=== PATIENT | female | born 1970 | race Caucasian/White ===

== ENCOUNTER 2016-07-07 17:32 | Emergency (ER) | payer OTHER ==
[2016-07-07 19:06] VITALS: BP 113/55
--- NOTE | 2016-07-07 19:27 | UC ---
Throat Pain/Nasal Bryson HPI - HPI Summary HPI Summary: 46 yo female with sore throat /headache and myalgias x 1-2 days no runny nose or cough no CP/sob states that she can take cephalexin - History of Current Complaint Chief Complaint: UCGeneralIllness Stated Complaint: SORE THROAT/HEADACHE Time Seen by Provider: 07/07/16 19:07 Hx Obtained From: Patient Hx Last Menstrual Period: hysterectomy Onset/Duration: Gradual Onset, Lasting Days Severity: Moderate Pain Intensity: 4 Pain Scale Used: 0-10 Numeric - Allergies/Home Medications Allergies/Adverse Reactions: Allergies Allergy/AdvReac Type Severity Reaction Status Date / Time Sorbitan [From Stelara] Allergy Severe Anaphylatic Verified 07/07/16 19:06 Shock Ustekinumab [From Stelara] Allergy Severe Anaphylatic Verified 07/07/16 19:06 Shock Benzyl Alcohol [From Enbrel] Allergy Mild See Comment Verified 07/07/16 19:06 Etanercept [From Enbrel] Allergy Mild See Comment Verified 07/07/16 19:06 Iohexol [From Omnipaque] Allergy Mild Eyes Verified 07/07/16 19:06 Itchy/Swollen/Red/Watery Penicillins [PCN] Allergy Mild Rash Verified 07/07/16 19:06 Tromethamine [From Enbrel] Allergy Mild See Comment Verified 07/07/16 19:06 Amoxicillin Allergy Rash Verified 07/07/16 19:06 Solifenacin [From Vesicare] Allergy Swelling Verified 07/07/16 19:06 Of Face,Lips,& Throat Venlafaxine [From Effexor] AdvReac Mild See Comment Verified 07/07/16 19:06 PMH/Surg Hx/FS Hx/Imm Hx Previously Healthy: Yes Endocrine History Of: Denies: Diabetes, Thyroid Disease Cardiovascular History Of: Denies: Cardiac Disorders, Hypertension, Pacemaker/ICD Respiratory History Of: Reports: Bronchitis Denies: COPD, Asthma GI/ History Of: Denies: Gastroesophageal Reflux, Ulcer, Gastrointestinal Bleed, Gall Bladder Disease, Renal Disease Neurological History Of: Reports: Migraine Denies: CVA, Dementia, Seizures Cancer History Of: Denies: Breast Cancer Other History Of: Negative For: Anticoagulant Therapy - Surgical History Surgical History: Yes Surgery Procedure, Year, and Place: HYSTERECTOMY, appendectomy, bladder repair, thyriod - Family History Known Family History: Positive: Diabetes, Other - Aneurysm - Social History Alcohol Use: Rare Substance Use Type: None Smoking Status (MU): Former Smoker Type: Cigarettes Length of Time of Smoking/Using Tobacco: 20 years Have You Smoked in the Last Year: Yes When Did the Patient Quit Smoking/Using Tobacco: 3 months - Immunization History Most Recent Tetanus Shot: unknown Review of Systems Constitutional: Negative Skin: Negative Eyes: Negative ENT: Sore Throat Respiratory: Negative Cardiovascular: Negative Gastrointestinal: Negative Genitourinary: Negative Motor: Negative Neurovascular: Negative Musculoskeletal: Myalgia Neurological: Negative Psychological: Negative All Other Systems Reviewed And Are Negative: Yes Physical Exam Triage Information Reviewed: Yes Appearance: Well-Appearing, No Pain Distress, Well-Nourished Vital Signs: Initial Vital Signs Temp 98.5 F 07/07/16 19:00 Pulse 67 07/07/16 19:00 Resp 16 07/07/16 19:00 BP 113/55 07/07/16 19:00 Pulse Ox 98 07/07/16 19:00 Vital Signs Reviewed: Yes Eyes: Positive: Conjunctiva Clear ENT: Positive: Hearing grossly normal, Pharyngeal erythema, Tonsillar swelling, Other: - a few soft palate petechiae Neck exam: Normal Neck: Positive: Supple, Nontender, Enlarged Nodes @ - ant cervical Respiratory: Positive: Lungs clear, Normal breath sounds, No respiratory distress Cardiovascular: Positive: RRR, No Murmur, Pulses Normal Musculoskeletal: Positive: ROM Intact, No Edema Neurological: Positive: Alert Psychological Exam: Normal Skin Exam: Normal Throat Pain/Nasal Course/Dx - Course Course Of Treatment: RS (-) - Differential Dx/Diagnosis Provider Diagnoses: acute pharyngitis Discharge - Discharge Plan Condition: Stable Disposition: HOME Prescriptions: Cephalexin CAP* [Keflex CAP*] 500 mg PO BID #20 cap Patient Education Materials: Pharyngitis (ED) Referrals: Raul Molina MD [Primary Care Provider] - 4 Days (if not better) Additional Instructions: rest fluids tylenol recheck for new or worsening symptoms
[2016-07-07] MEDS ORDERED: Ketorolac INJ* 30 MG/ML 1 ML VIAL IV ONE (19:36)
== END 2016-07-07 19:54 | disposition home or self-care (01) ==
LOC: UCEAST 17:32
DX: J02.9 Acute pharyngitis, unspecified (principal); R51 Headache; M79.1 Myalgia; Z88.0 Allergy status to penicillin; Z88.8 Allergy status to other drugs, medicaments and biological substances; Z87.891 Personal history of nicotine dependence
CPT/HCPCS: 87651; 99212; G0463

== ENCOUNTER 2016-12-29 11:07 | Emergency (ER) | payer OTHER ==
[2016-12-29] MEDS ORDERED: NS 0.9% 1000 ML* 1,000 ML IV ONE (11:42)
[2016-12-29] MEDS ORDERED: diPHENhydraMINE IV* 50 MG in NS 0.9% 50 ML* 50 ML IVPB ONE (11:42)
[2016-12-29] MEDS ORDERED: Ketorolac INJ* 30 MG/ML 1 ML VIAL IV PUSH ONE (11:42)
[2016-12-29] MEDS ORDERED: methylPREDNISolone 125 MG* 2 ML VIAL IV ONE (11:42)
[2016-12-29] MEDS ORDERED: Metoclopramide IV* 5 MG/ML 2 ML VIAL IV SLOW PU ONE (12:40)
[2016-12-29] MEDS ORDERED: Metoclopramide IV* 5 MG/ML 2 ML VIAL ONE (12:41)
[2016-12-29 14:23] VITALS: BP 119/68
--- NOTE | 2016-12-30 10:06 | ED ---
Mercedes Mao Auryana, scribed for Vahe Spicer MD on 12/29/16 at 1139 . Allergic Reaction/Systemic - HPI Summary HPI Summary: 46 year old female BIBA with an allergic reaction. She reports that she has a pruritic rash on the chest, throat tightening, and a GOSS. Patient reports that she was lying in bed when the reaction occurred - denies any insect bites. She reports that she just started Chantix and recently changed her GERD medication. Improved with EPI pen given by EMS. Patient reports that she does have an epi pen at home but states that she gave it to her to put in a safe place. PMHx is significant for GERD and complex migraines. - History of Current Complaint Chief Complaint: EDAllergicReaction Time Seen by Provider: 12/29/16 11:32 Hx Obtained From: Patient Hx Last Menstrual Period: hysterectomy Onset/Duration: Sudden Onset, Started hours ago, Still Present, Resolved - but improved Timing: Constant Severity Initially: Mild Severity Currently: Mild Location: Diffuse Character: Pruritus - rash on chest Alleviating Factor(s): Epinephrine Associated Signs And Symptoms: Positive: Throat Tightening, Other: - migraine - Allergies/Home Medications Allergies/Adverse Reactions: Allergies Allergy/AdvReac Type Severity Reaction Status Date / Time Sorbitan [From Stelara] Allergy Severe Anaphylatic Verified 07/07/16 19:06 Shock Ustekinumab [From Stelara] Allergy Severe Anaphylatic Verified 07/07/16 19:06 Shock Benzyl Alcohol [From Enbrel] Allergy Mild See Comment Verified 07/07/16 19:06 Etanercept [From Enbrel] Allergy Mild See Comment Verified 07/07/16 19:06 Iohexol [From Omnipaque] Allergy Mild Eyes Verified 07/07/16 19:06 Itchy/Swollen/Red/Watery Penicillins [PCN] Allergy Mild Rash Verified 07/07/16 19:06 Tromethamine [From Enbrel] Allergy Mild See Comment Verified 07/07/16 19:06 Amoxicillin Allergy Rash Verified 07/07/16 19:06 Solifenacin [From Vesicare] Allergy Swelling Verified 07/07/16 19:06 Of Face,Lips,& Throat Venlafaxine [From Effexor] AdvReac Mild See Comment Verified 07/07/16 19:06 PMH/Surg Hx/FS Hx/Imm Hx Endocrine/Hematology History: Denies: Hx Anticoagulant Therapy, Hx Diabetes, Hx Thyroid Disease Cardiovascular History: Denies: Hx Hypertension, Hx Pacemaker/ICD Respiratory History: Denies: Hx Asthma, Hx Chronic Obstructive Pulmonary Disease (COPD) GI History: Reports: Other GI Disorders - Hx GERD Denies: Hx Cirrhosis, Hx Crohn's Disease, Hx Diverticulosis, Hx Gall Bladder Disease, Hx Gastroesophageal Reflux Disease, Hx Gastrointestinal Bleed, Hx Hiatal Hernia, Hx Irritable Bowel, Hx Jaundice, Hx Obstructive Bowel, Hx Ileostomy, Hx Pyloric Stenosis, Hx Ulcer History: Denies: Hx Renal Disease Musculoskeletal History: Reports: Other Musculoskeletal History - R knee ACL reconstruction Denies: Hx Rheumatoid Arthritis, Hx Osteoporosis Sensory History: Reports: Hx Contacts or Glasses Denies: Hx Cataracts, Hx Eye Injury, Hx Eye Prosthesis, Hx Glaucoma, Hx Macular Degeneration, Hx Vision Problem, Hx Deafness, Hx Hearing Aid, Hx Hearing Problem, Other Sensory Impairments Opthamlomology History: Reports: Hx Contacts or Glasses Denies: Hx Cataracts, Hx Eye Injury, Hx Eye Prosthesis, Hx Glaucoma, Hx Macular Degeneration, Hx Vision Problem, Other Sensory Impairments Neurological History: Reports: Hx Headaches, Hx Migraine Denies: Hx Dementia, Hx Seizures, Hx Spinal Cord Injury, Other Neuro Impairments/Disorders Psychiatric History: Denies: Hx Panic Disorder, Hx Substance Abuse - Cancer History Hx Chemotherapy: No Hx Radiation Therapy: No - Surgical History Surgery Procedure, Year, and Place: HYSTERECTOMY, appendectomy, bladder repair, thyriod - Immunization History Date of Tetanus Vaccine: 2014 Date of Influenza Vaccine: 03/08/16 Infectious Disease History: No Infectious Disease History: Denies: Hx Hepatitis, Hx Human Immunodeficiency Virus (HIV), History Other Infectious Disease, Traveled Outside the [place] in Last 30 Days - Family History Known Family History: Positive: Diabetes, Other - Aneurysm - Social History Alcohol Use: None Hx Substance Use: No Substance Use Type: Reports: None Hx Tobacco Use: Yes Smoking Status (MU): Former Smoker Type: Cigarettes Length of Time of Smoking/Using Tobacco: 20 years Have You Smoked in the Last Year: Yes Review of Systems Constitutional: Negative Negative: Fever, Chills Eyes: Negative Negative: Erythema Positive: Other - throat tightening . Negative: Sore Throat Cardiovascular: Negative Negative: Chest Pain Respiratory: Negative Negative: Shortness Of Breath, Cough Gastrointestinal: Negative Negative: Abdominal Pain, Vomiting, Nausea Genitourinary: Negative Negative: dysuria, hematuria Musculoskeletal: Negative Negative: Myalgia, Edema Positive: Rash - on chest - pruritic Neurological: Other - NO DIZZINESS Positive: Headache Psychological: Normal All Other Systems Reviewed And Are Negative: Yes Physical Exam - Summary Physical Exam Summary: Constitutional: Well-developed, Well-nourished, Alert. (-) Distressed Skin: Warm, Dry. Splotchy red rash on the chest. HENT: Normocephalic; Atraumatic Eyes: Conjunctiva normal. Photophobic. Neck: Musculoskeletal ROM normal neck. (-) JVD, (-) Stridor, (-) Tracheal deviation Cardio: Rhythm regular, rate normal, Heart sounds normal; Intact distal pulses; The pedal pulses are 2+ and symmetric. Radial pulses are 2+ and symmetric. (-) Murmur Pulmonary/Chest wall: Effort normal. (-) Respiratory distress, (-) Wheezes, (-) Rales. No stridor. Abd: Soft, (-) Tenderness, (-) Distension, (-) Guarding, (-) Rebound Musculoskeletal: (-) Edema. No angioedema. Lymph: (-) Cervical adenopathy Neuro: Alert, Oriented x3 Psych: Mood and affect Normal Triage Information Reviewed: Yes Vital Signs On Initial Exam: Initial Vitals Temp Pulse Resp BP Pulse Ox 97.9 F 72 16 125/62 95 12/29/16 11:10 12/29/16 11:10 12/29/16 11:10 12/29/16 11:10 12/29/16 11:10 Vital Signs Reviewed: Yes - Enrico Coma Scale Coma Scale Total: 15 Diagnostics - Vital Signs Vital Signs Temp Pulse Resp BP Pulse Ox 12/29/16 11:10 97.9 F 72 16 125/62 95 - Laboratory Lab Statement: Any lab studies that have been ordered have been reviewed, and results considered in the medical decision making process. Re-Evaluation - Re-Evaluation First Eval Re-Evaluation Time: 14:12 - GOSS is resolved, lungs clear, itchiness resolved Change: Improved Allergic Reaction Course/Dx - Course Assessment/Plan: 46 year old female BIBA with an allergic reaction. She reports that she has a pruritic rash on the chest, throat tightening, and a GOSS. Patient reports that she was lying in bed when the reaction occurred - denies any insect bites. She reports that she just started Chantix and recently changed her GERD medication. Improved with EPI pen given by EMS. Patient reports that she does have an epi pen at home but states that she gave it to her to put in a safe place. PMHx is significant for GERD and complex migraines. Patient was given IV fluids, Benadryl, Reglan, Toradol, and Prednisone. On re- evaluation, patient is much improved lungs clear, GOSS resolved, and no more itchiness. Patient will be discharged home with recommendation to discontinue Chantix and follow up with PCP. Patient is agreeable to plan. DDx: contact dermatitis, medication allergy, food allergy, anaphylaxis. Dx: allergic reaction. - Diagnoses Differential Diagnosis/HQI/PQRI: Positive: Anaphylaxis, Local Allergic Reaction , Other - medication allergy, contact dermatitis, food allergy Provider Diagnoses: Allergic reaction Discharge - Discharge Plan Condition: Stable Disposition: HOME Patient Education Materials: General Allergic Reaction (ED) Referrals: Raul Molina MD [Primary Care Provider] - 2 Days Additional Instructions: PLEASE DISCONTINUE CHANTIX. RETURN TO THE EMERGENCY DEPARTMENT FOR CHANGING OR WORSENING SYMPTOMS. The documentation as recorded by the Mercedes collins Auryana accurately reflects the service I personally performed and the decisions made by me, Vahe Spicer MD.
== END 2016-12-29 14:23 | disposition home or self-care (01) ==
LOC: ED 11:07
DX: T78.40XA Allergy, unspecified, initial encounter (principal); R21 Rash and other nonspecific skin eruption; R51 Headache; R09.89 Other specified symptoms and signs involving the circulatory and respiratory systems; X58.XXXA Exposure to other specified factors, initial encounter; Z88.1 Allergy status to other antibiotic agents; Z88.8 Allergy status to other drugs, medicaments and biological substances; Z91.041 Radiographic dye allergy status; Z90.710 Acquired absence of both cervix and uterus; Z87.891 Personal history of nicotine dependence
CPT/HCPCS: 96361; 96365; 96375; 99282; J1200; J1885; J2930

== ENCOUNTER 2017-06-04 06:41 | Day surgery (SDC) | payer OTHER ==
[~2017-06-04 06:41] MED LIST: Buffered Lidocaine 0.9% SYRIN* 5 ML/SYR SYRINGE INTRADERM ONE; DiMENhydriNATE IV* 50 MG/ML VIAL IV PUSH PRN; Famotidine IV* 10 MG/ML 2 ML (20 mg) IV ONE; Morphine INJ* 2 MG/ML 1 ML CARPUJECT IV PRN; PROCHLORPERAZINE INJ 5 MG/ML 2 ML VIAL IV PRN; Scopolamine 1.5 mg* PATCH TRANSDERM PRN; fentaNYL* 50 MCG/ML 2 ML VIAL (100 MCG VIAL) IV PRN; oxyCODONE/Acetamin 5/325 MG* TAB PO PRN
[2017-06-04] MEDS ORDERED: Famotidine IV* 10 MG/ML 2 ML (20 mg) ONE (07:19)
[2017-06-04] MEDS ORDERED: Clindamycin 900 MG IVPREMIX(* 900 MG/50 ML SDV IV ONE (07:20)
[2017-06-04] MEDS ORDERED: Bupivacaine 0.25% SDV* 30 ML ONE (07:26)
[2017-06-04] MEDS ORDERED: fentaNYL* 50 MCG/ML 2 ML VIAL (100 MCG VIAL) ONE (07:39)
[2017-06-04] MEDS ORDERED: Midazolam* 1 MG/ML 2 ML VIAL (2 MG) ONE (07:39)
[2017-06-04] MEDS ORDERED: KETAMINE HCL* 50 MG/ML 10 ML VIAL ONE (07:39)
[2017-06-04] MEDS ORDERED: Dexamethasone IV* 4 MG/ML 1 ML (4 MG) ONE (09:41)
[2017-06-04] MEDS ORDERED: Glycopyrrolate IV* 0.2 MG/ML 1 ML VIAL ONE (09:41)
[2017-06-04] MEDS ORDERED: EPHEDrine (Pressors)* 50 MG/ML VIAL ONE (09:41)
[2017-06-04] MEDS ORDERED: Propofol* 10 MG/ML 20 ML BTL IV PUSH ONE (09:41)
[2017-06-04] MEDS ORDERED: Ketorolac INJ* 30 MG/ML 1 ML VIAL ONE (09:41)
[2017-06-04] MEDS ORDERED: Ondansetron INJ* 2 MG/ML VIAL ONE (09:41)
[2017-06-04] MEDS ORDERED: Lidocaine 2% PF * 5 ML VIAL ONE (09:41)
[2017-06-04] MEDS ORDERED: HYDROcodone/ACETAMIN 5-325 MG* 1 TAB ONE (10:41)
[2017-06-04 11:08] VITALS: BP 114/63
--- NOTE | 2017-06-07 00:09 | OP ---
OPERATIVE REPORT: DATE OF OPERATION: 06/04/17 DATE OF : 74 SURGEON: Prateek Casey MD ASH KIER BOILER: JOAN Tsai ANESTHESIOLOGIST: ANESTHESIA: General. PRE-OP DIAGNOSIS: Right carpal and cubital tunnel syndrome. POST-OP DIAGNOSIS: Right carpal and cubital tunnel syndrome. PROCEDURE PERFORMED: 1. Right carpal tunnel release. 2. Right in-situ cubital tunnel release. INDICATIONS: Lisa is 47, she has had quite a bit of numbness and tingling in the ring and small fin gers. She is also having some carpal tunnel type symptoms. The electrodiagnostic studies had shown carpal tunnel syndrome. Most of her symptoms were in the ulnar nerve distribution and this was consi stent with cubital tunnel syndrome. We talked about risks and benefits. She did want to proceed wit h surgery. ESTIMATED BLOOD LOSS: 5 mL. COMPLICATIONS: None. FINDINGS: As expected. DESCRIPTION OF PROCEDURE: Lisa was seen in the preoperative holding area. We came back to the oper ating room. The area was prepped and draped in the usual fashion. A time-out was performed. The arm was exsanguinated with the Esmarch and tourniquet inflated to 250 mmHg. I began by making a 2 cm longitudinal incision in standard location for an open carpal tunnel release. Dissection was ca rried down to the subcutaneous tissue and palmar fascia. The transverse carpal ligament was released just off the radial aspect of the hook of Hamate. The release was completed distally and proximally . Once there was absolutely no compression on the nerve, I went ahead and examined everything. Every thing looked good. So we irrigated out the wound and closed the skin with 4-0 Monocryl suture. I then turned my attention to the elbow. The arm was externally rotated and abducted. A curvilinear incision was made centered right over the Stewart's ligament and then in line with the ulnar nerve p roximally and distally. Dissection was carried down. The medial antebrachial cutaneous nerve was id entified and protected. The decompression was begun just proximal to Stewart's ligament where the ul kelly nerve was unroofed. The fascia overlying the ulnar nerve was released all the way past the arcad e of Anjelica. I then came down and released the Stewart's ligament and then the superficial FCU fa scia and then split the 2 edges of the FCU and released the subfascial layer in its entirety through the course of the FCU muscle. The nerve was clearly compressed and flattened over a 1 cm segment jus t under Stewart's ligament. I went ahead and released the medial intramuscular septum, everything wa s looking good. I flexed and extended the elbow. The nerve did not subluxate. So we irrigated out the wound. Hemostasis was obtained with Bovie cautery. The wound was closed with 3-0 Vicryl and the n 4-0 Monocryl suture and Steri-Strips. The operative areas were infiltrated with 0.25% Marcaine. T he wounds were dressed with Xeroform, 4x4s, sterile Webril and Chris bandages. Tourniquet was deflated. She was taken to the recovery room in stable condition. [id number]/[facility] #: [id number]
[2017-06-07] MEDS ORDERED: Scopolamine PATCH Remove* 1 NOTE MISC PATCH OFF ONE (06:09)
== END 2017-06-04 11:21 | disposition home or self-care (01) ==
LOC: OREAST 06:41
PROVIDERS: ATTEND Orthopaedic Surgery Hand Surgery
DX: G56.01 Carpal tunnel syndrome, right upper limb (principal); G56.21 Lesion of ulnar nerve, right upper limb; Z87.891 Personal history of nicotine dependence; R00.2 Palpitations; R07.9 Chest pain, unspecified; G89.29 Other chronic pain; L40.9 Psoriasis, unspecified; M25.50 Pain in unspecified joint
CPT/HCPCS: J1100; J1885; J2250; J2405; J2704; J3010

== ENCOUNTER 2017-07-06 08:23 | Day surgery (SDC) | payer OTHER ==
[~2017-07-06 08:23] MED LIST changes: +Bupivacaine 0.25% SDV* 30 ML ONE; -DiMENhydriNATE IV* 50 MG/ML VIAL IV PUSH PRN; -Famotidine IV* 10 MG/ML 2 ML (20 mg) IV ONE; -Morphine INJ* 2 MG/ML 1 ML CARPUJECT IV PRN; -PROCHLORPERAZINE INJ 5 MG/ML 2 ML VIAL IV PRN; -Scopolamine 1.5 mg* PATCH TRANSDERM PRN; -fentaNYL* 50 MCG/ML 2 ML VIAL (100 MCG VIAL) IV PRN; -oxyCODONE/Acetamin 5/325 MG* TAB PO PRN
[2017-07-06] MEDS ORDERED: fentaNYL* 50 MCG/ML 2 ML VIAL (100 MCG VIAL) ONE (08:28)
[2017-07-06] MEDS ORDERED: Midazolam* 1 MG/ML 2 ML VIAL (2 MG) ONE (08:28)
[2017-07-06] MEDS ORDERED: Clindamycin 900 MG IVPREMIX(* 900 MG/50 ML SDV IV ONE (08:53)
[2017-07-06] MEDS ORDERED: Buffered Lidocaine 0.9% SYRIN* 5 ML/SYR SYRINGE ONE (08:53)
[2017-07-06] MEDS ORDERED: Dexamethasone IV* 4 MG/ML 1 ML (4 MG) ONE (10:24)
[2017-07-06] MEDS ORDERED: Propofol* 10 MG/ML 20 ML BTL IV PUSH ONE (10:24)
[2017-07-06] MEDS ORDERED: Lidocaine 2% PF * 5 ML VIAL ONE (10:24)
[2017-07-06] MEDS ORDERED: Ondansetron INJ* 2 MG/ML VIAL ONE (10:24)
[2017-07-06] MEDS ORDERED: oxyCODONE/Acetamin 5/325 MG* TAB PO PRN (10:57)
[2017-07-06] MEDS ORDERED: Naloxone* 0.4 MG/ML 1 ML VIAL IV PRN (10:57)
[2017-07-06] MEDS ORDERED: Ibuprofen TAB* 600 MG PO PRN (10:57)
[2017-07-06] MEDS ORDERED: oxyCODONE/Acetamin 5/325 MG* TAB ONE (11:33)
[2017-07-06] MEDS ORDERED: HYDROmorphone INJ* 2 MG/ML CARPUJECT SYRINGE ONE (11:38)
[2017-07-06] MEDS: HYDROmorphone INJ* 1 MG/ML CARPUJECT SYRINGE IV PRN ×2 (11:39→11:52)
[2017-07-06 14:21] VITALS: BP 129/82
--- NOTE | 2017-07-07 15:08 | OP ---
DATE OF OPERATION: 07/06/17 - [facility] DATE OF : 74 SURGEON: Prateek Casey MD MINER ASSISTANT: JOAN Dave. An preschool assistant principal was needed for the procedure to aid in positioning of the arm and retraction. ANESTHESIOLOGIST: Danuta Gordillo MD ANESTHESIA: General. PRE-OP DIAGNOSES: 1. Left carpal tunnel syndrome. 2. Left cubital tunnel syndrome. POST-OP DIAGNOSES: 1. Left carpal tunnel syndrome. 2. Left cubital tunnel syndrome. OPERATIVE PROCEDURE: 1. Left carpal tunnel release. 2. Left in situ cubital tunnel release. INDICATIONS: Lisa has done very well with right-sided carpal tunnel and cubital tunnel release. She has similar symptoms on the left. We talked about risks and benefits, she wanted to proceed. ESTIMATED BLOOD LOSS: 2 mL. COMPLICATIONS: None. FINDINGS: As expected. DESCRIPTION OF PROCEDURE: Lisa was seen in the preoperative holding area. The correct site, side, and procedure were identified. We came back to the operating room and the arm was prepped and draped in the usual fashion. Time- out was performed. I began by exsanguinating the arm with an Esmarch and the tourniquet was inflated to 250 mmHg. I then made a 2- to 3-cm longitudinal incision in the standard location for an open carpal tunnel release. Dissection was carried down through the subcutaneous tissue and palmar fascia. The transverse carpal tunnel ligament was released just off the radial aspect of the hook of the hamate. I then released the fascia and subcutaneous tissue proximally and retracted volarly and ulnarly with the Melecio retractor. Under direct visualization, I released the remainder of the transverse carpal ligament and distal antebrachial fascia to a level several centimeters proximal to the wrist flexion crease. I then checked the decompression. There was absolutely no compression on the nerves. So, we irrigated out the wound. Skin was closed with 4-0 nylon and suture. I then turned my attention to the elbow, made a curvilinear incision in line with the ulnar nerve centered over Stewart's ligament. Dissection was carried down. The medial antebrachial cutaneous nerves identified and protected. I started the release just proximal to Stewart's ligament and released it well past 8 cm proximal to the medial epicondyle releasing the arcade of [place]. I came distal and released the Stewart's ligament and the superficial FCU fascia FCU were split and then subfascial layer was released. Once there was absolutely no compression on the nerve, I flexed and extended the elbow. There was no subluxation of the nerve. So, we went ahead and irrigated out the wound. The subcutaneous tissue was reapproximated with 3-0 Vicryl sutures. Skin was closed with 4-0 Monocryl and Steri-Strips. The operative sites were infiltrated with 0.25% plain Marcaine. Wounds were dressed with Xeroform, 4x4s, and ABD at the elbow, sterile Webril, and Chris bandages. Tourniquet was deflated and she was taken to recovery room in stable condition. [id number]/[facility] #: [id number] YOSSI
== END 2017-07-06 12:45 | disposition home or self-care (01) ==
LOC: OR 08:23
PROVIDERS: ATTEND Orthopaedic Surgery Hand Surgery
DX: G56.02 Carpal tunnel syndrome, left upper limb (principal); G56.22 Lesion of ulnar nerve, left upper limb; Z87.891 Personal history of nicotine dependence; R00.2 Palpitations
CPT/HCPCS: A9270-GY; J1100; J1170; J2250; J2405; J2704; J3010

== ENCOUNTER 2017-10-12 08:38 | Day surgery (SDC) | payer OTHER ==
[~2017-10-12 08:38] MED LIST changes: -Bupivacaine 0.25% SDV* 30 ML ONE; +Famotidine TAB* 20 MG PO ONE; +Midazolam* 1 MG/ML 5 ML VIAL (5 MG) ONE; +fentaNYL* 50 MCG/ML 2 ML VIAL (100 MCG VIAL) ONE
[2017-10-12] MEDS ORDERED: Clindamycin 900 MG IVPREMIX(* 900 MG/50 ML SDV IV ONE (08:59)
[2017-10-12] MEDS ORDERED: Famotidine TAB* 20 MG ONE (08:59)
[2017-10-12] MEDS ORDERED: Buffered Lidocaine 0.9% SYRIN* 5 ML/SYR SYRINGE ONE (09:00)
[2017-10-12] MEDS ORDERED: diPHENhydraMINE IV* 50 MG/ML 1 ml VIAL (BENADRYL) ONE (11:58)
[2017-10-12] MEDS ORDERED: DiMENhydriNATE IV* 50 MG/ML VIAL ONE (12:08)
[2017-10-12] MEDS ORDERED: Ketorolac INJ* 30 MG/ML 1 ML VIAL ONE (12:08)
[2017-10-12] MEDS ORDERED: Lidocaine 2% PF * 5 ML VIAL ONE (12:08)
[2017-10-12] MEDS ORDERED: Propofol* 10 MG/ML 20 ML BTL IV PUSH ONE (12:08)
[2017-10-12] MEDS ORDERED: Dexamethasone IV* 4 MG/ML 1 ML (4 MG) ONE (12:08)
[2017-10-12] MEDS ORDERED: DiMENhydriNATE IV* 50 MG/ML VIAL IV PUSH PRN (12:16)
[2017-10-12] MEDS ORDERED: Naloxone* 0.4 MG/ML 1 ML VIAL IV PRN (12:16)
[2017-10-12] MEDS ORDERED: Acetaminophen TAB* 325 MG PO PRN (12:16)
[2017-10-12] MEDS ORDERED: Bupivacaine 0.25% SDV* 30 ML ONE (12:17)
[2017-10-12] MEDS ORDERED: HYDROmorphone INJ* 2 MG/ML CARPUJECT SYRINGE ONE (12:53)
[2017-10-12] MEDS: HYDROmorphone INJ* 1 MG/ML CARPUJECT SYRINGE IV PRN ×2 (12:54→13:10)
[2017-10-12] MEDS ORDERED: HYDROcodone/ACETAMIN 5-325 MG* 1 TAB ONE (13:15)
[2017-10-12 13:52] VITALS: BP 129/79
--- NOTE | 2017-10-13 09:13 | OP ---
DATE OF OPERATION: 10/12/17 - [facility] DATE OF : 74 SURGEON: Prateek Casey MD COMMUNICATION AND OUTREACH MANAGER: JOAN Dave ANESTHESIOLOGIST: Dr. Ivory. ANESTHESIA: General. PRE-OP DIAGNOSES: 1. 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 2. Left ulnar nerve compression at the wrist. POST-OP DIAGNOSES: 1. 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 2. Left ulnar nerve compression at the wrist. OPERATIVE PROCEDURE: 1. Left ulnar nerve decompression at the wrist with release of Guyon's canal and release of motor branch. 2. Left pisiform excision. INDICATIONS: Lisa had done very well from left carpal and cubital tunnel release. She has also done well from her right carpal and cubital tunnel release. About a month after surgery on the left, she fell and struck the palmar aspect of the left hand. Ever since she has had terrible neurotic pain in the right and small fingers. CT scan was concerning for questionable fracture in the pisiform. We have been observing this now for a while and her symptoms are not getting any better. All of the tenderness is about the ulnar side of the wrist. The pisiform is very tender. The ulnar nerve is very irritated. I talked to her about doing the decompression and excising the pisiform. She agreed and wanted to proceed. ESTIMATED BLOOD LOSS: 2 mL. COMPLICATIONS: None. FINDINGS: As expected. DESCRIPTION OF PROCEDURE: Lisa was seen in the preoperative holding area. The correct side, site and the procedure were identified. We came back to the operating room. The arm was prepped and draped in usual fashion. A time-out was performed. I began by utilizing the prior carpal tunnel incision. This was brought back in Lorraine-type fashion across the ulnar aspect of the wrist. Dissection was carried down and the ulnar neurovascular bundle was identified. I then came more ulnar and released the tissue off of the superficial aspect of the pisiform. I made an incision through the FCU tendon. The pisiform was shelled out using a 15 blade and this was handed off. She did have some arthritis at the pisotriquetral joint. I did not appreciate any large obvious nonunion or malunion. After the pisiform was excised, I went ahead and opened up the fascia overlying the entirety of Guyon's canal. The motor branch was stuck in quite a bit of scar tissue. I took some time, but ultimately was able to release all this including the fascia overlying the motor branch in the deep subfascial layer. Both the common digital nerve and proper digital nerve were seen as ulnar nerve branch. Everything was fully decompressed. Once there had been absolutely no more compression on the nerve, I irrigated everything out. The split in the FCU was closed with some Ethibond suture. The skin was closed with 4-0 nylon suture. The wounds were dressed with Xeroform, 4x4s, sterile Webril and a cock- up wrist splint was applied. Marcaine was infiltrated. She was woken up and taken to recovery room in stable condition. [id number]/[facility] #: [id number] YOSSI
== END 2017-10-12 13:54 | disposition home or self-care (01) ==
LOC: OR 08:38
PROVIDERS: ATTEND Orthopaedic Surgery Hand Surgery
DX: S62.165A Nondisplaced fracture of pisiform, left wrist, initial encounter for closed fracture (principal); G56.22 Lesion of ulnar nerve, left upper limb; W19.XXXA Unspecified fall, initial encounter; Y92.9 Unspecified place or not applicable; E78.5 Hyperlipidemia, unspecified; Z87.891 Personal history of nicotine dependence; L40.50 Arthropathic psoriasis, unspecified; F41.8 Other specified anxiety disorders; K21.9 Gastro-esophageal reflux disease without esophagitis; G89.4 Chronic pain syndrome; Z79.899 Other long term (current) drug therapy
CPT/HCPCS: 88304; 88311; A9270-GY; J1100; J1170; J1200; J1240; J1885; J2250; J2704; J3010

== ENCOUNTER 2017-12-29 09:31 | Emergency (ER) | payer OTHER ==
--- NOTE | 2017-12-29 11:22 | ED ---
Respiratory - HPI Summary HPI Summary: 47 y/o female presents to the ED c/o intermittent cough for 1 month. Pt now c/o SOB secondary to cough. Non productive cough. Pt on Zithromax for double ear infection. Smoker - pt quit and started again months ago. Denies CP. Associated sx: fever several nights ago. PMHx HLD. FHx - DM (mom), cardiac problems (father ). This is scribe Ed Ruma documenting for attending Humberto Rene MD - History of Current Complaint Chief Complaint: EDGeneral Stated Complaint: COUGH/DIFF BREATHING Time Seen by Provider: 12/29/17 11:16 Hx Obtained From: Patient Onset/Duration: Lasting Weeks, Still Present Pain Intensity: 0 Character: Cough (Nonproductive) Sputum Amount: None Aggravating Factor(s): Nothing Alleviating Factor(s): Nothing Associated Signs and Symptoms: Fever, SOB - secondary to cough - Allergy/Home Medications Allergies/Adverse Reactions: Allergies Allergy/AdvReac Type Severity Reaction Status Date / Time etanercept [From Enbrel] Allergy worsened Verified 12/29/17 09:36 psoriasis iohexol [From Omnipaque] Allergy itchy Verified 12/29/17 09:36 swollen eyes solifenacin [From Vesicare] Allergy swelling Verified 12/29/17 09:36 of face and lips ustekinumab [From Stelara] Allergy anaphylaxis Verified 12/29/17 09:36 venlafaxine [From Effexor] Allergy Unknown Verified 12/29/17 09:36 Reaction Details all cillins Allergy Rash Uncoded 12/29/17 09:36 PMH/Surg Hx/FS Hx/Imm Hx Previously Healthy: No Endocrine/Hematology History: Denies: Hx Anticoagulant Therapy, Hx Diabetes, Hx Thyroid Disease Cardiovascular History: Reports: Other Cardiovascular Problems/Disorders - HIGH CHOLESTEROL Denies: Hx Hypertension, Hx Pacemaker/ICD Respiratory History: Denies: Hx Asthma, Hx Chronic Obstructive Pulmonary Disease (COPD), Other Respiratory Problems/Disorders GI History: Reports: Hx Gastroesophageal Reflux Disease - ON MEDICATION FOR, Hx Hiatal Hernia Denies: Hx Cirrhosis, Hx Crohn's Disease, Hx Diverticulosis, Hx Gall Bladder Disease, Hx Gastrointestinal Bleed, Hx Irritable Bowel, Hx Jaundice, Hx Obstructive Bowel, Hx Ileostomy, Hx Pyloric Stenosis, Hx Ulcer, Other GI Disorders History: Denies: Hx Renal Disease, Other Problems/Disorders Musculoskeletal History: Reports: Hx Arthritis - hands , feet and kness psoriatic, Hx Bursitis - LEFT KNEE- IN THE PAST, Other Musculoskeletal History - Right knee ACL reconstruction Denies: Hx Rheumatoid Arthritis, Hx Osteoporosis, Hx Tendonitis Sensory History: Reports: Hx Contacts or Glasses - GLASSES Denies: Hx Cataracts, Hx Eye Injury, Hx Eye Prosthesis, Hx Glaucoma, Hx Macular Degeneration, Hx Vision Problem, Hx Deafness, Hx Hearing Aid, Hx Hearing Problem, Other Sensory Impairments Opthamlomology History: Reports: Hx Contacts or Glasses - GLASSES Denies: Hx Cataracts, Hx Eye Injury, Hx Eye Prosthesis, Hx Glaucoma, Hx Macular Degeneration, Hx Vision Problem, Other Sensory Impairments Neurological History: Reports: Hx Headaches - Tylenol or Excedrin Migraine, Hx Migraine - TREATS WITH REST AND EXCEDRIN MIGRAINE Denies: Hx Dementia, Hx Seizures, Hx Spinal Cord Injury, Other Neuro Impairments/Disorders Psychiatric History: Reports: Hx Anxiety - ON MEDICATION FOR, Hx Depression - ON MEDICATION FOR Denies: Hx Panic Disorder, Hx Substance Abuse - Cancer History Hx Chemotherapy: No Hx Radiation Therapy: No - Surgical History Surgery Procedure, Year, and Place: HYSTERECTOMY - 2001-[facility]. Appendectomy - [facility] [place] 2005. Bladder Repair - [facility] [place]. Thyriod- CYST REMOVED - AGE 17 [facility] [place]. ACL REPAIR RIGHT KNEE - 2009 - [facility]. right hand, 06/04/17, [facility] [place]. 07/06/17 left hand and elbow, [facility] [place]. RIGHT CARPAL TUNNEL AND RIGHT ELBOW SURGERY - 05/2017 - [facility] Anesthesia Reactions: No - Immunization History Date of Tetanus Vaccine: 2014 Date of Influenza Vaccine: 03/08/16 Infectious Disease History: No Infectious Disease History: Denies: Hx Hepatitis, Hx Human Immunodeficiency Virus (HIV), History Other Infectious Disease, Traveled Outside the in Last 30 Days - Family History Known Family History: Positive: Diabetes, Other - Aneurysm - Social History Alcohol Use: Rare Alcohol Amount: 4 per year Hx Substance Use: No Substance Use Type: Reports: None Hx Tobacco Use: Yes Smoking Status (MU): Former Smoker Type: Cigarettes Amount Used/How Often: 1 PPD X 1.5 DAYS X 20+ YEARS Length of Time of Smoking/Using Tobacco: 20 years Have You Smoked in the Last Year: Yes - QUIT DECEMBER 2016 Review of Systems Positive: Fever Eyes: Negative ENT: Negative Cardiovascular: Negative Positive: Shortness Of Breath, Cough Gastrointestinal: Negative Genitourinary: Negative Musculoskeletal: Negative Skin: Negative Neurological: Negative Psychological: Normal All Other Systems Reviewed And Are Negative: Yes Physical Exam - Summary Physical Exam Summary: VITAL SIGNS: Reviewed. GENERAL: Patient is a well-developed and nourished FEMALE who is lying comfortable in the stretcher. Patient is not in any acute respiratory distress. HEAD AND FACE: No signs of trauma. No ecchymosis, hematomas or skull depressions. No sinus tenderness. EYES: PERRLA, EOMI x 2, No injected conjunctiva, no nystagmus. EARS: Hearing grossly intact. Ear canals and tympanic membranes are within normal limits. MOUTH: Oropharynx within normal limits. NECK: Supple, trachea is midline, no adenopathy, no JVD, no carotid bruit, no c- spine tenderness, neck with full ROM. CHEST: Symmetric, no tenderness at palpation LUNGS: Coarse breath sounds bilaterally. CVS: Regular rate and rhythm, S1 and S2 present, no murmurs or gallops appreciated. ABDOMEN: Soft, non-tender. No signs of distention. No rebound no guarding, and no masses palpated. Bowel sounds are normal. EXTREMITIES: FROM in all major joints, no edema, no cyanosis or clubbing. NEURO: Alert and oriented x 3. No acute neurological deficits. Speech is normal and follows commands. SKIN: Dry and warm Vital Signs On Initial Exam: Initial Vitals Temp Pulse Resp BP Pulse Ox 97.9 F 72 16 144/80 96 12/29/17 09:33 12/29/17 09:33 12/29/17 09:33 12/29/17 09:33 12/29/17 09:33 Diagnostics - Vital Signs Vital Signs Temp Pulse Resp BP Pulse Ox 12/29/17 09:33 97.9 F 72 16 144/80 96 - Laboratory Result Diagrams: 12/29/17 11:59 12/29/17 11:59 Lab Statement: Any lab studies that have been ordered have been reviewed, and results considered in the medical decision making process. - Radiology CXR Xray Interpretation: No Acute Changes - No active cardiopulmonary disease Radiology Interpretation Completed By: Radiologist - EKG 1 EKG Interpretation: 11:29 - SB @ [address] elevations. Normal axis Disposition - Course Assessment/Plan: Patient is a 47-year-old female who presents to the emergency department with a chief complaint of dry cough. Patient reports that shes been having this dry cough for approximately one month. She has gone through 2 courses of azithromycin on the symptoms continue be present. Patient has a headache, denies any chest pain or shortness of breath. Patient reports that she has a dry cough during the day and night. Patient denies any fever or chills. Patient has no other complaints. Chest x-ray impression: No active cardiopulmonary disease. Blood test results without any significant abnormality except for in a slight increase in what was felt of 11.7. The patient doesnt seem to be ill looking or toxic looking, the patient has this occasional episodes of dry cough without any other complaints. Therefore I do not believe that the patient has a bacterial infection believe that the patient has a viral infection. Therefore the patient will be discharged home with antitussive medications and follow-up with the primary care physician. Patient is hemodynamically stable alert and oriented 3. All concerns were answered and she has no further questions. - Diagnoses Provider Diagnoses: Cough Discharge - Sign-Out/Discharge Documenting (check all that apply): Patient Departure - Discharge Plan Condition: Stable Disposition: HOME Prescriptions: Promethazine HCl/Codeine [Promethazine-Codeine Syrup] 5 ml PO TID PRN #120 ml MDD 15 ml PRN Reason: Cough Patient Education Materials: Acute Cough (ED) Referrals: Raul Molina MD [Primary Care Provider] - 4 Days (PLEASE F/U IN 3-5 DAYS) Additional Instructions: RETURN FOR CHANGING/WORSENING SYMPTOMS
[2017-12-29] MEDS ORDERED: guaiFENesin/CODIEN 100MG-10MG* 5 ML UDC PO ONE (11:23)
--- NOTE | 2017-12-29 11:53 | RAD ---
HISTORY: cough COMPARISONS: February 07, 2016 VIEWS: 4: Frontal dual-energy and lateral views of the chest. FINDINGS: CARDIOMEDIASTINAL SILHOUETTE: The cardiomediastinal silhouette is normal. ARIADNE: The ariadne are normal. PLEURA: The costophrenic angles are sharp. No pleural abnormalities are noted. LUNG PARENCHYMA: The lungs are clear. ABDOMEN: The upper abdomen is clear. There is no subphrenic gas. BONES AND SOFT TISSUES: No bone or soft tissue abnormalities are noted. OTHER: None. IMPRESSION: NO ACTIVE CARDIOPULMONARY DISEASE.
[2017-12-29] MEDS ORDERED: Acetaminophen TAB* 325 MG ONE (12:06)
[2017-12-29 12:08] LABS: ABS Basophils 0.1 10^3/ul (0-0.2); ABS Eosinophils 0.4 10^3/ul (0-0.6); ABS Lymphocytes 2.7 10^3/ul (1.0-4.8); ABS Monocytes 0.7 10^3/ul (0-0.8); ABS Neutrophils 7.7 10^3/ul (1.5-7.7); ABS Nucleated RBC 0 10^3/ul; Eosinophil % 3.3 % (0-6); Hematocrit 37 % (35-47); Hemoglobin 12.9 g/dl (12.0-16.0); Lymphocyte % 23.2 % (25-47); Mean Corpuscular HGB Conc 35 g/dl (31-36); Mean Corpuscular Hemoglobin 31 pg (27-31); Mean Corpuscular Volume 90 fL (80-97); Mean Platelet Volume 7.3 um3 (7.4-10.4); Nucleated Red Blood Cells % 0; Platelet Count 236 10^3/ul (150-450); Red Blood Count 4.13 10^6/ul (4.00-5.40); Red Cell Distribution Width 13 % (10.5-15); White Blood Count 11.7 10^3/ul (3.5-10.8)
[2017-12-29] MEDS ORDERED: Acetaminophen TAB* 325 MG PO ONE (12:10)
[2017-12-29 12:27] LABS: EGFR Non-African American 76.5 (>60)
[2017-12-29 13:04] VITALS: BP 141/66
== END 2017-12-29 13:02 | disposition home or self-care (01) ==
LOC: ED 09:31
DX: R50.9 Fever, unspecified (principal); R06.02 Shortness of breath; R05 Cough; Z88.0 Allergy status to penicillin; Z87.891 Personal history of nicotine dependence
CPT/HCPCS: 36415; 71046; 80053; 85025; 93005; 99282; A9270-GY

== ENCOUNTER → 2018-02-25 09:38 | Emergency (ER) | payer OTHER ==
[~2018-02-25 09:38] MED LIST changes: -Buffered Lidocaine 0.9% SYRIN* 5 ML/SYR SYRINGE INTRADERM ONE; +Dexamethasone IV* 4 MG/ML 1 ML (4 MG) ONE; +Diazepam TAB(*) 5 MG PO ONE; -Famotidine TAB* 20 MG PO ONE; +Ketorolac INJ* 30 MG/ML 1 ML VIAL ONE; +Magnesium Sulfate 2 GM IV* 2 GM/50 ML BAG ONE; +Metoclopramide IV* 5 MG/ML 2 ML VIAL IV SLOW PU ONE; -Midazolam* 1 MG/ML 5 ML VIAL (5 MG) ONE; +diPHENhydraMINE IV* 50 MG/ML 1 ml VIAL (BENADRYL) SLOW PUSH ONE; -fentaNYL* 50 MCG/ML 2 ML VIAL (100 MCG VIAL) ONE
--- NOTE | 2018-02-25 10:12 | ED ---
Headache - HPI Summary HPI Summary: This patient is a 47 year old F presenting [place] [facility] accompanied by her daughter with a chief complaint of a migraine that she woke up this morning with. The patient rates the pain 10/10 in severity, she states the GOSS is located at the top of her head. Patient reports photophobia, chills, diaphoresis, and neck pain. Patient denies fever. Patients daughter states one the way to the ED the patient began acting strange, she describes it as confusion. In the room the patient states she is here to see her father, who according to the daughter has been for 5 years. She also brings up her daughters surgery as if it still needs to occur and again the daughter reports she had surgery years ago. Pt has been under a large amount of stress due to work. Daughter states she usually does not get memory issues with the headaches in the past. Hx migraines - History Of Current Complaint Chief Complaint: EDAltMentalStatus Stated Complaint: CONFUSION Time Seen by Provider: 02/25/18 09:59 Hx Obtained From: Patient, Family/Securities And Real Estate Director Hx Last Menstrual Period: hysterectomy Onset/Duration: Started hours ago, Still Present Initially Headache Was: Initial Pain Scale(0-10)= - 10 Currently Pain Is: Current Pain Scale(0-10)= - 10 Timing: Constant Character: Migraine Location of Headache: Other: - top Associated Signs And Symptoms: Other (Noted In Comments) - AMS - Allergies/Home Medications Allergies/Adverse Reactions: Allergies Allergy/AdvReac Type Severity Reaction Status Date / Time etanercept [From Enbrel] Allergy worsened Verified 12/29/17 09:36 psoriasis iohexol [From Omnipaque] Allergy itchy Verified 12/29/17 09:36 swollen eyes solifenacin [From Vesicare] Allergy swelling Verified 12/29/17 09:36 of face and lips ustekinumab [From Stelara] Allergy anaphylaxis Verified 12/29/17 09:36 venlafaxine [From Effexor] Allergy Unknown Verified 12/29/17 09:36 Reaction Details all cillins Allergy Rash Uncoded 12/29/17 09:36 PMH/Surg Hx/FS Hx/Imm Hx Endocrine/Hematology History: Denies: Hx Anticoagulant Therapy, Hx Diabetes, Hx Thyroid Disease Cardiovascular History: Reports: Other Cardiovascular Problems/Disorders - HIGH CHOLESTEROL Denies: Hx Hypertension, Hx Pacemaker/ICD Respiratory History: Denies: Hx Asthma, Hx Chronic Obstructive Pulmonary Disease (COPD), Other Respiratory Problems/Disorders GI History: Reports: Hx Gastroesophageal Reflux Disease - ON MEDICATION FOR, Hx Hiatal Hernia Denies: Hx Cirrhosis, Hx Crohn's Disease, Hx Diverticulosis, Hx Gall Bladder Disease, Hx Gastrointestinal Bleed, Hx Irritable Bowel, Hx Jaundice, Hx Obstructive Bowel, Hx Ileostomy, Hx Pyloric Stenosis, Hx Ulcer, Other GI Disorders History: Denies: Hx Renal Disease, Other Problems/Disorders Musculoskeletal History: Reports: Hx Arthritis - hands , feet and kness psoriatic, Hx Bursitis - LEFT KNEE- IN THE PAST, Other Musculoskeletal History - Right knee ACL reconstruction Denies: Hx Rheumatoid Arthritis, Hx Osteoporosis, Hx Tendonitis Sensory History: Reports: Hx Contacts or Glasses - GLASSES Denies: Hx Cataracts, Hx Eye Injury, Hx Eye Prosthesis, Hx Glaucoma, Hx Macular Degeneration, Hx Vision Problem, Hx Deafness, Hx Hearing Aid, Hx Hearing Problem, Other Sensory Impairments Opthamlomology History: Reports: Hx Contacts or Glasses - GLASSES Denies: Hx Cataracts, Hx Eye Injury, Hx Eye Prosthesis, Hx Glaucoma, Hx Macular Degeneration, Hx Vision Problem, Other Sensory Impairments Neurological History: Reports: Hx Headaches - Tylenol or Excedrin Migraine, Hx Migraine - TREATS WITH REST AND EXCEDRIN MIGRAINE Denies: Hx Dementia, Hx Seizures, Hx Spinal Cord Injury, Other Neuro Impairments/Disorders Psychiatric History: Reports: Hx Anxiety - ON MEDICATION FOR, Hx Depression - ON MEDICATION FOR Denies: Hx Panic Disorder, Hx Substance Abuse - Cancer History Hx Chemotherapy: No Hx Radiation Therapy: No - Surgical History Surgery Procedure, Year, and Place: HYSTERECTOMY - 2001-[facility]. [place] [facility] [place]. Bladder Repair - [facility]. Thyriod- CYST REMOVED - AGE 17 [facility] [place] ACL REPAIR RIGHT KNEE - 2009 - [facility]. right hand, 06/04/17, [facility]. 07/06/17 left hand and elbow, [facility] [place]. RIGHT CARPAL TUNNEL AND RIGHT ELBOW SURGERY - [place] [facility] [place]x Anesthesia Reactions: No - Immunization History Date of Tetanus Vaccine: 2014 Date of Influenza Vaccine: 03/08/16 Infectious Disease History: No Infectious Disease History: Denies: Hx Hepatitis, Hx Human Immunodeficiency Virus (HIV), History Other Infectious Disease, Traveled Outside the [place] in Last 30 Days - Family History Known Family History: Positive: Diabetes, Other - Aneurysm - Social History Alcohol Use: Rare Alcohol Amount: 4 per year Hx Substance Use: No Substance Use Type: Reports: None Hx Tobacco Use: Yes Smoking Status (MU): Heavy Every Day Tobacco Smoker Type: Cigarettes Amount Used/How Often: 1 PPD X 1.5 DAYS X 20+ YEARS Length of Time of Smoking/Using Tobacco: 20 years Have You Smoked in the Last Year: Yes - QUIT DECEMBER 2016 Review of Systems Positive: Chills, Skin Diaphoresis. Negative: Fever Positive: Photophobia. Negative: Erythema Negative: Sore Throat Negative: Chest Pain Negative: Shortness Of Breath, Cough Negative: Abdominal Pain, Vomiting, Nausea Negative: dysuria, hematuria Positive: Myalgia - neck pain . Negative: Edema Negative: Rash Neurological: Negative - dizziness Positive: Headache Positive: Other - AMS All Other Systems Reviewed And Are Negative: Yes Physical Exam - Summary Physical Exam Summary: Constitutional: Well-developed, Well-nourished, Alert. (-) Distressed Skin: Warm, Dry HENT: Normocephalic; Atraumatic Eyes: Conjunctiva normal Neck: Musculoskeletal ROM normal neck. (-) JVD, (-) Stridor, (-) Tracheal deviation Cardio: Rhythm regular, rate normal, Heart sounds normal; Intact distal pulses; The pedal pulses are 2+ and symmetric. Radial pulses are 2+ and symmetric. (-) Murmur Pulmonary/Chest wall: Effort normal. (-) Respiratory distress, (-) Wheezes, (-) Rales Abd: Soft. (-) Tenderness, (-) Distension, (-) Guarding, (-) Rebound Musculoskeletal: (-) Edema Lymph: (-) Cervical adenopathy Neuro: Alert, Oriented x3, Strength normal, Cranial nerves II-XII are grossly intact. (-) Dysmetria, (-) Nystagmus, (-), Ataxia by finger to nose testing, (- ) Sensory deficit.Possible conversion disorder Fluent speech Thinks she is at home ,Doesnt know who I am, she is recalling past events. not consistent with CVA Psych: Mood and affect Normal Triage Information Reviewed: Yes Vital Signs On Initial Exam: Initial Vitals Temp Pulse Resp BP Pulse Ox 98.2 F 78 16 134/106 96 02/25/18 09:41 09/20/18 09:41 02/25/18 09:41 02/25/18 09:41 02/25/18 09:41 Vital Signs Reviewed: Yes - Enrico Coma Scale Best Eye Response: 4 - Spontaneous Best Motor Response: 6 - Obeys Commands Best Verbal Response: 5 - Oriented Coma Scale Total: 15 Diagnostics - Vital Signs Vital Signs Temp Pulse Resp BP Pulse Ox 02/25/18 09:41 98.2 F 78 16 134/106 96 - Laboratory Result Diagrams: 02/25/18 10:20 02/25/18 10:20 Lab Statement: Any lab studies that have been ordered have been reviewed, and results considered in the medical decision making process. - CT CT head CT Interpretation Completed By: Radiologist - There is no evidence of intracranial mass or hemorrhage. ED physician has reviewed this radiology report. Re-Evaluation - Re-Evaluation First Eval Re-Evaluation Time: 15:09 Change: Improved Comment: Pt has improved headache is down to a 4/10 and the patient is feeling better Second Eval Re-Evaluation Time: 16:13 Change: Improved Comment: Pt's headache has resolved and she would like to go home. Headache Course/Dx - Course Assessment/Plan: This patient is a 47 year old F presenting to [facility] accompanied by her daughter with a chief complaint of a migraine that she woke up this morning with. The patient rates the pain 10/10 in severity, she states the GOSS is located at the top of her head. Patient reports photophobia, chills, diaphoresis, and neck pain. Patient denies fever. Patients daughter states one the way to the ED the patient began acting strange, she describes it as confusion. In the room the patient states she is here to see her father, who according to the daughter has been for 5 years. She also brings up her daughters surgery as if it still needs to occur and again the daughter reports she had surgery years ago. Pt has been under a large amount of stress due to work. Daughter states she usually does not get memory issues with the headaches in the past. Hx migraines. CT brain reveals, per radiologist, There is no evidence of intracranial mass or hemorrhage. Dx migraine headache and stress reaction. Test results with no significant abnormalities. In the ED course the patient was given toradol, reglan, benadryl, decadron, and Valium. Pts sx resolved with these. All sx resolved with migraines medications, there are no deficits. Patient will be discharged wiand follow up from [facility]. The patient is agreeable with this plan. - Diagnoses Provider Diagnoses: Migraine headache, Stress reaction Discharge - Sign-Out/Discharge Documenting (check all that apply): Patient Departure - Discharge Plan Condition: Stable Disposition: HOME Patient Education Materials: Migraine Headache (ED) Referrals: Raul Molina MD [Primary Care Provider] - 2 Days [facility] [Outside] - If Needed Additional Instructions: RETURN TO THE EMERGENCY DEPARTMENT FOR CHANGING OR WORSENING SYMPTOMS - Attestation Statements Document Initiated by Scribe: Yes Documenting Scribe: Naveed Blunt Provider For Whom Scribe is Documenting (Include Credential): Vahe Spicer MD Scribe Attestation: Naveed Mao , scribed for Vahe Spicer MD on 02/25/18 at 1630.
--- NOTE | 2018-02-25 14:58 | RAD ---
Indication: Headaches. CT of the brain performed without IV contrast. Ventricular structures are midline. No midline shift is noted. The extra-axial spaces are unremarkable. There is no evidence of intracranial mass or hemorrhage. No other high or low density lesions are identified. Mastoid air cells and paranasal sinuses are otherwise unremarkable. IMPRESSION: There is no evidence of intracranial mass or hemorrhage.
[2018-02-25 15:10] LABS: EGFR Non-African American 82.3 (>60); Hematocrit 40 % (35-47); Hemoglobin 13.7 g/dl (12.0-16.0); Mean Corpuscular HGB Conc 34 g/dl (31-36); Mean Corpuscular Hemoglobin 31 pg (27-31); Mean Corpuscular Volume 90 fL (80-97); Mean Platelet Volume 7.8 um3 (7.4-10.4); Platelet Count 217 10^3/ul (150-450); Red Blood Count 4.42 10^6/ul (4.00-5.40); Red Cell Distribution Width 13 % (10.5-15); White Blood Count 8.3 10^3/ul (3.5-10.8)
[2018-02-25 16:57] VITALS: BP 105/67
== END | disposition home or self-care (01) ==
LOC: ED 09:38
DX: G43.909 Migraine, unspecified, not intractable, without status migrainosus (principal); F43.9 Reaction to severe stress, unspecified
CPT/HCPCS: 36415; 70450; 80053; 85027; 86140; 96374; 96375; 99283; A9270-GY; J1100; J1200; J1885; J2765; J3475

== ENCOUNTER 2018-11-22 14:00 | Emergency (ER) | payer OTHER ==
--- OUTSIDE RECORDS SUMMARY | 2018-11-22 14:15 | XMS REPORT | Continuity of Care Document ---
:1970 External Reference #:[id number] Author Name ALEX Lopez Address [address] [address] Care Team Providers Name Role Phone Raul Molina MD Care Team Information Drone Operator Unavailable Raul Molina MD Primary Care Physician Unavailable Payers Date Identification Numbers Payment Provider Subscriber Effective: Policy Number: [id number] [facility] Lisa Bustamante 2012 Group Number: [id number] [address] Group Name: [place] [id number] PayID: [id number] Expires: 1998 Group Number: [id number] Program Director Group Work [facility]ison Aguirre [address] [place] [address] Problems Active Problems Provider Date Gastritis Raul Molina M.D. Onset: 05/06/2012 Psoriasis Raul Molina M.D. Onset: 05/06/2012 Recurrent major depressive episodes Raul Molina M.D. Onset: 05/06/2012 Generalized anxiety disorder Raul Molina M.D. Onset: 05/06/2012 Gastroesophageal reflux disease Raul Molina M.D. Onset: 10/11/2014 Hyperlipidemia Raul Molina M.D. Onset: 10/11/2014 Psoriasis with arthropathy Raul Molina M.D. Onset: 10/11/2014 Mixed hyperlipidemia Raul Molina M.D. 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/2015 Psoriatic dactylitis Raul Molina M.D. 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/2015 Family History Date Family Member(s) Observation Comments Father Aneurysm Of Ascending Aorta Father Heart Valve Disorder Father Hyperlipidemia Mother Diabetes Mellitus, II Onset: (age 50 Years) Maternal Grandmother Colon Cancer Onset: (age 50 Years) Maternal Grandmother Breast Cancer Social History Type Date Description Comments Sex Unknown Tobacco Use Start: Unknown Patient is a current smoker, smokes every day Allergies, Adverse Reactions, Alerts Active Allergies Reaction Severity Comments Date Penicillin diarrhea as child 05/06/2012 Enbrel psorasis worse 08/16/[address] DYE ITCHY RED SWOLLEN EYES Mild 08/02/2014 Amoxicillin Anaphylaxis 05/17/2015 Stelara throat closes 05/17/2015 Vesicare hives, throat closing Severe 08/29/2015 Metronidazole Skin rash, mouth pain 08/19/2018 Medications Active Medications SIG Qnty Indications Ordering Date Provider Lorazepam 1 by mouth twice a 60tabs G47.00 [place] 11/19/2018 0.5mg Tablets day as needed Salvador, [employer] anxiety Paroxetine HCL 1 by mouth every 90tabs F41.9 [place] 11/19/2018 20mg day Salvador, [employer] Tablets Lidoderm apply to affected 3units M54.5 [place] 10/19/2018 5% Patches areas of pain for Salvador, [employer] 12 hours as needed pain Tramadol HCL 1 every 6 hours as 60tabs M54.5 [place] 10/19/2018 50mg needed pain Salvador, [employer] Tablets Triamcinolone apply sparingly to 15gm R21 [place] 10/19/2018 Acetonide affected area of Salvador, [employer] 0.025% Cream gluteal fold once per day, not to exceed 3 weeks continuous use Epipen 2-Johnson as directed for 2unjeffrey Molina, 08/16/2012 allergy exposure M.D. 0.3mg/0.3ML Device Trazodone HCL take one tablet by 90tabs Leela C. 50mg mouth at bedtime CLINTON Parry Tablets mdd 1 mdd 1 mdd 1 mdd 1 Benadryl Allergy bid Unknown 25mg Tablets Omeprazole 40MG twice a day Unknown History Medications Paroxetine HCL 1 by mouth every 90tabs F41.9 [place] 10/19/2018 - 10mg day [facility] 11/19/2018 Tablets Carafate take 1 tablet by 120tabs K30 [place] 10/19/2018 - 1gm Tablets mouth 4 times per [facility] 11/19/2018 day before meals and at bedtime Fluoxetine HCL 1 by mouth every 90caps [place] 09/21/2018 - 10mg day [facility] 10/19/2018 Capsules Valium 1-2 po every 12 30tabs G47.00 [place] 09/21/2018 - 2mg Tablets hours as needed [facility] 11/19/2018 anxiety Prednisone 4 by mouth x 2 19tabs Raul AEdison 09/08/2018 - 5mg Tablets days, then 3 by Deuce Molina 09/21/2018 mouth x 2 days, then 2 by mouth x 2 days,then 1 by mouth x 1 day Metronidazole 1 by mouth three 21tabs Raul Truong 08/17/2018 - 500mg times a day Deuce Molina 08/19/2018 Tablets Ranitidine HCL 1 po qd 90caps Raul Truong 03/23/2018 - 300mg Deuce Molina 09/21/2018 Capsules Prednisone 4 by mouth x 2 19tabs R51 Raul Truong 03/01/2018 - 10mg Tablets days, then 3 by Deuce Molina 03/08/2018 mouth x 2 days, then 2 by mouth x 2 days,then 1 by mouth x 1 day Orphenadrine Citrate take one tablet by 60tabs R51 Raul Truong 03/01/2018 - ER mouth twice a day Deuce Molina 10/19/2018 100mg Tablets ER as needed for 12HR headache/neckache Fluoxetine HCL 2 by mouth every 60caps Raul A. 05/14/2017 - 40mg day Deuce Molina 09/21/2018 Capsules Omeprazole take one capsule 90caps K21.9 Raul AEdison 02/02/2017 - 40mg by mouth daily Deuce Molina 08/31/[address] Fluoxetine HCL 1 by mouth every 90tabs Raul AEdison 01/06/2017 - 60mg day Deuce Molina 05/14/2017 Tablets Rosuvastatin Calcium Take 1 Tablet By 90tabs Raul A. 01/06/2017 - Mouth Once Daily Deuce Molina 11/19/2018 5mg Tablets Lansoprazole 1 po qd 90caps K21.9 Raul A. 12/10/2016 - 30mg Deuce Molina 02/02/[address] Rodriguez Starting 1 as directed then 1pak Z72.0 Raul AEdison 12/08/2016 - Month Johnson refill maintenance Deuce Molina 03/01/2018 0.5mg X 11 & packs x 6 months 1 mg X 42 Tablets Ciprofloxacin HCL 1 by mouth twice a 14tabs N39.0 Rosa Andrade, 2015 - 500mg day x 7d [employer] 04/14/2016 Tablets Labs cbc with manual E87.6 Raul AEdison 08/29/2015 - diff; dx: Deuce Molina 08/30/2015 leukocytosis p3, diagnosis: hypokalemia Clindamycin HCL 1 by mouth three 21caps J01.90 Raul AEdison 08/14/2015 - 300mg times a day Deuce Molina 08/21/2015 Capsules Eszopiclone 1 by mouth every 30tabs Raul AEdison 06/19/2015 - 3mg Tablets at bedtime Deuce Molina 08/14/2015 Fenofibrate 1 by mouth every 90caps 272.4 Raul AEdison 10/11/2014 - Micronized day Deuce Molina 03/28/2016 67mg Capsules Eszopiclone 1 by mouth every 30tabs Raul AEdison 10/11/2014 - 3mg Tablets at bedtime Deuce Molina 05/17/2015 Amoxicillin 1 three times a 30tabs 461.9 Angela Agrawal, 08/09/2014 - 500mg day x 10 days Afnp-C 08/19/2014 Tablets Azithromycin 1 by mouth every 5tabs 466.0 Raul AEdison 2014 - 500mg day x 5 days Deuce Molina 05/21/2014 Tablets Work Excuse unable to work Raul Turong 2014 - 2014 Deuce Molina 08/09/2014 Buspirone HCL Take One Tablet By 60tabs 300.02 Raul Truong 2014 - 5mg Mouth Twice Daily Deuce Molina 05/17/2015 Tablets Levofloxacin 1 po qd x10 days 10tabs 461.9 Raul Truong 09/13/2013 - 500mg Deuce Molina 09/23/2013 Tablets Chantix 1 starter pack for 1tabs Raul Truong 08/03/2013 - 0.5mg X 11 & 1 a month,then Deuce Molina 08/09/2014 mg X 42 Tablets refill maintenance packs Folic Acid 6 days a week, do Raul Truong 07/28/2013 - Capsules not take same day Deuce Molina 2014 as methothrexate. Metoclopram take 1 po tid prn Raul Truong 07/28/2013 - 10mg headache/nausea Deuce Molina 05/17/2015 Levofloxacin 1 po qd x10 days 10tabs 461.9 Raul Truong 07/28/2013 - 500mg Deuce Molina 08/07/2013 Tablets Ranitidine HCL Take One Tablet By 30tabs Nemesio Truong 01/12/2013 - 300mg Mouth Every Day Deuce Walters 08/10/2013 Tablets Ranitidine HCL 1 po qd 30tabs 995.0 Raul Truong 08/16/2012 - 300mg Deuce Molina 10/25/2012 Tablets Levocetirizine 1 po qd 30tabs 995.0 Raul Truong 08/16/2012 - Dihydrochloride Deuce Molina 10/25/2012 5mg Tablets Prednisone 4 po qd x 7 days, 72tabs 995.0 Raul Truong 08/16/2012 - 10mg Tablets then 3 po qd x 7 Deuce Molina 10/25/2012 days, then 2 po qd x 7 days,then 1 po x 7 days, then 1/2 po qd x 4 days Medrol dose-pack as Unknown - 4mg Tablets instructed 09/08/2018 Folic Acid 1 by mouth every Unknown - 1mg Tablets day 10/19/2018 Dexilant 1 by mouth every Unknown - 60mg Capsules day 11/19/2018 Sulfadiazine bid Unknown - 500mg 10/19/2018 Tablets Fluoxetine HCL Take One Capsule 90caps Raul A. - 40mg By Mouth Once Deuce Molina 01/06/2017 Capsules Daily In The Morning Omeprazole take one capsule 180caps K21.9 Raul A. - 40mg by mouth twice Jesse M.Jeffrey 12/10/[address] daily Ibuprofen 1 po tid Unknown - 600mg Tablets 03/28/2016 Hydroxyzine Pamoate 1 by mouth every Raul A. - night Deuce Molina 05/17/2015 50mg Capsules Colcrys 1 by mouth bid 90tabs Unknown - 0.6mg Tablets 01/06/2017 Methotrexate take 1 po 1 x week Unknown - 2.5mg 08/10/2013 Tablets Magnesium 1 po qd Unknown - 400mg 10/11/2014 Capsules Amitriptyline HCL 1 tablet by mouth Unknown - 50mg at bedtime 10/11/2014 Tablets Sucralfate 1 po bid 60tabs Unknown - 1gm Tablets 10/11/2014 Excedrin Migraine as directed prn Unknown - 08/10/2013 [id number] Tablets Tylenol prn Unknown - 500mg 05/17/2015 Clonazepam 1 po qd 30tabs Raul A. - 0.5mg Deuce Molina 05/17/2015 Tablets Zoloft 2 po qd 60tabs Raul A. - 50mg Tablets Deuce Molina 05/17/2015 Soriatane 1 po qod Unknown - 25mg Capsules 08/16/2012 Immunizations CPT Code Status Date Vaccine Lot # [id number] Given 05/17/2015 Influenza Vac, Quadrivalent, Slit Virus, Im [id number] Vital Signs Date Vital Result Comment 11/19/2018 9:30am BP Systolic 130 mmHg BP Diastolic 72 mmHg Heart Rate 82 /min Body Temperature 97.4 F Respiratory Rate 20 /min Weight 189.00 lb 10/19/2018 11:55am BP Systolic 114 mmHg BP Diastolic 78 mmHg Heart Rate 72 /min Body Temperature 98.2 F Respiratory Rate 16 /min Height 63 inches 5'3" Weight 190.00 lb BMI (Body Mass Index) 33.7 kg/m2 09/21/2018 12:05pm BP Systolic 112 mmHg BP Diastolic 86 mmHg Heart Rate 80 /min Body Temperature 97.2 F Respiratory Rate 16 /min Height 63 inches 5'3" Weight 190.00 lb BMI (Body Mass Index) 33.7 kg/m2 08/31/2018 11:31am BP Systolic 120 mmHg BP Diastolic 78 mmHg Heart Rate 78 /min Body Temperature 98.0 F Respiratory Rate 18 /min Height 63 inches 5'3" Weight 191.00 lb BMI (Body Mass Index) 33.8 kg/m2 08/19/2018 1:12pm BP Systolic 108 mmHg BP Diastolic 66 mmHg Heart Rate 80 /min Body Temperature 97.7 F Respiratory Rate 17 /min Height 63 inches 5'3" Weight 189.00 lb BMI (Body Mass Index) 33.5 kg/m2 03/01/2018 3:11pm BP Systolic 124 mmHg BP Diastolic 80 mmHg Heart Rate 72 /min Body Temperature 97.9 F Respiratory Rate 16 /min Height 63 inches 5'3" Weight 195.00 lb BMI (Body Mass Index) 34.5 kg/m2 12/08/2016 1:22pm BP Systolic 130 mmHg BP Diastolic 76 mmHg Heart Rate 72 /min Body Temperature 97.9 F Respiratory Rate 16 /min Height 63 inches 5'3" Weight 170.00 lb BMI (Body Mass Index) 30.1 kg/m2 04/14/2016 3:14pm BP Systolic 130 mmHg BP Diastolic 80 mmHg Heart Rate 72 /min Body Temperature 97.6 F Respiratory Rate 16 /min Height 63 inches 5'3" Weight 170.00 lb BMI (Body Mass Index) 30.1 kg/m2 03/28/2016 4:44pm BP Systolic 130 mmHg BP Diastolic 74 mmHg Heart Rate 62 /min Body Temperature 97.4 F Respiratory Rate 18 /min Height 63 inches 5'3" Weight 169.00 lb BMI (Body Mass Index) 29.9 kg/m2 08/29/2015 4:23pm BP Systolic 122 mmHg BP Diastolic 60 mmHg Heart Rate 84 /min Body Temperature 97.9 F Respiratory Rate 16 /min Height 63 inches 5'3" Weight 165.00 lb BMI (Body Mass Index) 29.2 kg/m2 08/14/2015 10:13am BP Systolic 120 mmHg BP Diastolic 70 mmHg Heart Rate 77 /min Body Temperature 98.6 F Respiratory Rate 18 /min O2 % BldC Oximetry 96 % Height 63 inches 5'3" Weight 165.00 lb BMI (Body Mass Index) 29.2 kg/m2 05/17/2015 7:46pm BP Systolic 120 mmHg BP Diastolic 76 mmHg Heart Rate 76 /min Body Temperature 97.0 F Respiratory Rate 16 /min Height 63 inches 5'3" Weight 166.00 lb BMI (Body Mass Index) 29.4 kg/m2 10/11/2014 3:45pm BP Systolic 128 mmHg BP Diastolic 80 mmHg Heart Rate 80 /min Body Temperature 97.5 F Respiratory Rate 16 /min Height 63 inches 5'3" Weight 185.00 lb BMI (Body Mass Index) 32.8 kg/m2 08/09/2014 9:25am BP Systolic 136 mmHg BP Diastolic 82 mmHg Heart Rate 81 /min Body Temperature 97.9 F Respiratory Rate 16 /min O2 % BldC Oximetry 97 % Height 63 inches 5'3" Weight 177.38 lb BMI (Body Mass Index) 31.4 kg/m2 2014 10:43am BP Systolic 122 mmHg BP Diastolic 80 mmHg Heart Rate 68 /min Body Temperature 97.4 F Respiratory Rate 18 /min O2 % BldC Oximetry 98 % Height 63 inches 5'3" Weight 180.00 lb BMI (Body Mass Index) 31.9 kg/m2 09/13/2013 11:07am BP Systolic 128 mmHg BP Diastolic 80 mmHg Heart Rate 80 /min Body Temperature 98.6 F Respiratory Rate 18 /min O2 % BldC Oximetry 97 % Height 63 inches 5'3" Weight 180.00 lb BMI (Body Mass Index) 31.9 kg/m2 08/10/2013 11:07am BP Systolic 112 mmHg BP Diastolic 82 mmHg Heart Rate 68 /min Body Temperature 98.2 F Respiratory Rate 16 /min Height 63 inches 5'3" Weight 179.50 lb BMI (Body Mass Index) 31.8 kg/m2 08/03/2013 11:08am BP Systolic 130 mmHg BP Diastolic 80 mmHg Heart Rate 80 /min Body Temperature 98.0 F Respiratory Rate 16 /min Height 63 inches 5'3" Weight 179.00 lb BMI (Body Mass Index) 31.7 kg/m2 08/01/2013 7:21pm BP Systolic 120 mmHg BP Diastolic 70 mmHg Heart Rate 88 /min Body Temperature 98.1 F Respiratory Rate 18 /min O2 % BldC Oximetry 98 % Height 63 inches 5'3" Weight 179.00 lb BMI (Body Mass Index) 31.7 kg/m2 07/28/2013 4:24pm BP Systolic 118 mmHg BP Diastolic 80 mmHg Heart Rate 82 /min Body Temperature 97.9 F Respiratory Rate 16 /min O2 % BldC Oximetry 99 % Height 63 inches 5'3" Weight 175.00 lb BMI (Body Mass Index) 31.0 kg/m2 12/27/2012 5:25pm BP Systolic 110 mmHg BP Diastolic 80 mmHg Heart Rate 72 /min Body Temperature 98.2 F Respiratory Rate 18 /min Height 63 inches 5'3" Weight 166.00 lb BMI (Body Mass Index) 29.4 kg/m2 12/14/2012 11:41am BP Systolic 110 mmHg BP Diastolic 82 mmHg Heart Rate 72 /min Body Temperature 97.3 F Respiratory Rate 14 /min Height 63 inches 5'3" Weight 164.00 lb BMI (Body Mass Index) 29.0 kg/m2 10/25/2012 10:19am BP Systolic 120 mmHg BP Diastolic 80 mmHg Heart Rate 76 /min Body Temperature 97.8 F Respiratory Rate 16 /min Height 63 inches 5'3" Weight 174.00 lb BMI (Body Mass Index) 30.8 kg/m2 08/16/2012 3:11pm BP Systolic 114 mmHg BP Diastolic 80 mmHg Heart Rate 68 /min Body Temperature 97.9 F Respiratory Rate 12 /min O2 % BldC Oximetry 98 % Height 63 inches 5'3" Weight 168.00 lb BMI (Body Mass Index) 29.8 kg/m2 05/06/2012 1:35pm BP Systolic 120 mmHg BP Diastolic 80 mmHg Heart Rate 80 /min Body Temperature 97.9 F Respiratory Rate 16 /min Height 63 inches 5'3" Weight 162.00 lb BMI (Body Mass Index) 28.7 kg/m2 Results Test Date Facility Test Result H/L Range Note Ua - Non Micro (Fma) 11/19/2018 [facility] Appearance clear (607)- - Color yellow Glucose, Urine (Fma/CMC/CTX) neg Bilirubin neg Ketones neg SP Grav 1.010 Blood neg PH 7.0 Protein neg Urobil 0.2 Nitrite neg Leukocytes (a/CMC/Centrex) neg Ua - Non Micro (Fma) 08/31/2018 [facility] Appearance CLEAR (607)- - Color YELLOW Glucose, Urine (Fma/CMC/CTX) NEG Bilirubin NEG Ketones NEG SP Grav 1.020 Blood NEG PH 5.5 Protein NEG Urobil 0.2 Nitrite NEG Leukocytes (a/CMC/Centrex) NEG Laboratory test 08/18/2018 [facility] C Difficile PCR SEE RESULT 1, 2 finding BELOW Laboratory test 06/03/2018 [facility] Erythrocyte Sed 20 mm/Hr High 0-14 3 finding Rate Comp Metabolic 06/03/2018 [facility] Sodium 139 mmol/L N 135-145 Panel Potassium 4.4 mmol/L N 3.5-5.0 Chloride 105 mmol/L N 101-111 Co2 Carbon Dioxide 28 mmol/L N 22-32 Anion Gap 6 mmol/L N 2-11 Glucose 106 mg/dL High 70-100 Blood Urea Nitrogen 16 mg/dL N 6-24 Creatinine 0.88 mg/dL N 0.51-0.95 BUN/Creatinine Ratio 18.2 N 8-20 Calcium 9.9 mg/dL N 8.6-10.3 Total Protein 6.7 g/dL N 6.4-8.9 Albumin 4.3 g/dL N 3.2-5.2 Globulin 2.4 g/dL N 2-4 Albumin/Globulin Ratio 1.8 N 1-3 Total Bilirubin 0.30 mg/dL N 0.2-1.0 Alkaline Phosphatase 80 U/L N 34-104 Alt 28 U/L N 7-52 Ast 18 U/L N 13-39 Egfr Non- 69.2 >60 Egfr 83.7 >60 4 CBC Auto Diff 06/03/2018 [facility] White Blood Count 7.8 10^3/uL N 3.5-10.8 Red Blood Count 4.47 10^6/uL N 4.00-5.40 Hemoglobin 14.0 g/dL N 12.0-16.0 Hematocrit 41 % N 35-47 Mean Corpuscular Volume 92 fL N 80-97 Mean Corpuscular Hemoglobin 31 pg N 27-31 Mean Corpuscular HGB Conc 34 g/dL N 31-36 Red Cell Distribution Width 14 % N 10.5-15 Platelet Count 234 10^3/uL N 150-450 Mean Platelet Volume 8.2 fL N 7.4-10.4 Abs Neutrophils 4.4 10^3/uL N 1.5-7.7 Abs Lymphocytes 2.5 10^3/uL N 1.0-4.8 Abs Monocytes 0.6 10^3/uL N 0-0.8 Abs Eosinophils 0.3 10^3/uL N 0-0.6 Abs Basophils 0 10^3/uL N 0-0.2 Abs Nucleated RBC 0 10^3/uL Granulocyte % 55.9 % Lymphocyte % 32.1 % Monocyte % 8.2 % Eosinophil % 3.3 % Basophil % 0.5 % Nucleated Red Blood Cells % 0.1 Laboratory test 06/03/2018 [facility] C Reactive Protein 9.34 mg/L High <8.01 5 finding Laboratory test 05/04/2018 [facility] Surgical Pathology SEE RESULT 6, 7 finding BELOW Laboratory test 02/25/2018 [facility] C Reactive Protein 7.17 mg/L N <8.01 finding CBC No Diff 02/25/2018 [facility] White Blood Count 8.3 10^3/uL N 3.5-10.8 Red Blood Count 4.42 10^6/uL N 4.00-5.40 Hemoglobin 13.7 g/dL N 12.0-16.0 Hematocrit 40 % N 35-47 Mean Corpuscular Volume 90 fL N 80-97 Mean Corpuscular Hemoglobin 31 pg N 27-31 Mean Corpuscular HGB Conc 34 g/dL N 31-36 Red Cell Distribution Width 13 % N 10.5-15 Platelet Count 217 10^3/uL N 150-450 Mean Platelet Volume 7.8 um3 N 7.4-10.4 Comp Metabolic Panel 02/25/2018 [facility] Sodium 139 mmol/L N 135-145 Potassium 3.9 mmol/L N 3.5-5.0 Chloride 107 mmol/L N 101-111 Co2 Carbon Dioxide 25 mmol/L N 22-32 Anion Gap 7 mmol/L N 2-11 Glucose 84 mg/dL N 70-100 Blood Urea Nitrogen 12 mg/dL N 6-24 Creatinine 0.76 mg/dL N 0.51-0.95 BUN/Creatinine Ratio 15.8 N 8-20 Calcium 9.2 mg/dL N 8.6-10.3 Total Protein 6.6 g/dL N 6.4-8.9 Albumin 3.9 g/dL N 3.2-5.2 Globulin 2.7 g/dL N 2-4 Albumin/Globulin Ratio 1.4 N 1-3 Total Bilirubin 0.40 mg/dL N 0.2-1.0 Alkaline Phosphatase 82 U/L N 34-104 Alt 22 U/L N 7-52 Ast 16 U/L N 13-39 Egfr Non- 82.3 >60 Egfr 99.6 >60 8 CBC Auto Diff 12/29/2017 [facility] White Blood Count 11.7 10^3/uL High 3.5- 10.8 Red Blood Count 4.13 10^6/uL N 4.00-5.40 Hemoglobin 12.9 g/dL N 12.0-16.0 Hematocrit 37 % N 35-47 Mean Corpuscular Volume 90 fL N 80-97 Mean Corpuscular Hemoglobin 31 pg N 27-31 Mean Corpuscular HGB Conc 35 g/dL N 31-36 Red Cell Distribution Width 13 % N 10.5-15 Platelet Count 236 10^3/uL N 150-450 Mean Platelet Volume 7.3 um3 Low 7.4-10.4 Abs Neutrophils 7.7 10^3/uL N 1.5-7.7 Abs Lymphocytes 2.7 10^3/uL N 1.0-4.8 Abs Monocytes 0.7 10^3/uL N 0-0.8 Abs Eosinophils 0.4 10^3/uL N 0-0.6 Abs Basophils 0.1 10^3/uL N 0-0.2 Abs Nucleated RBC 0 10^3/uL Granulocyte % 66.4 % N 38-83 Lymphocyte % 23.2 % Low 25-47 Monocyte % 6.2 % N 0-7 Eosinophil % 3.3 % N 0-6 Basophil % 0.9 % N 0-2 Nucleated Red Blood Cells % 0 Comp Metabolic Panel 12/29/2017 [facility] Sodium 138 mmol/L N 135-145 Potassium 4.0 mmol/L N 3.5-5.0 Chloride 106 mmol/L N 101-111 Co2 Carbon Dioxide 24 mmol/L N 22-32 Anion Gap 8 mmol/L N 2-11 Glucose 82 mg/dL N 70-100 Blood Urea Nitrogen 11 mg/dL N 6-24 Creatinine 0.81 mg/dL N 0.51-0.95 BUN/Creatinine Ratio 13.6 N 8-20 Calcium 9.4 mg/dL N 8.6-10.3 Total Protein 6.6 g/dL N 6.4-8.9 Albumin 3.8 g/dL N 3.2-5.2 Globulin 2.8 g/dL N 2-4 Albumin/Globulin Ratio 1.4 N 1-3 Total Bilirubin 0.40 mg/dL N 0.2-1.0 Alkaline Phosphatase 74 U/L N 34-104 Alt 23 U/L N 7-52 Ast 17 U/L N 13-39 Egfr Non- 76.5 >60 Egfr 92.5 >60 9 Laboratory test 12/08/2016 [facility] Troponin-I/TnI <0.05 NG/ML Low 0.06-0.64 finding (607)- - Lipid Profile 12/01/2016 Renard Hurst([facility]) Cholesterol 226 mg/dL High 120-200 10 Triglycerides 192 mg/dL 30-200 HDL Cholesterol 43 mg/dL 30-85 LDL (Calculated) 145 CALC High 0-129 VLDL Cholesterol 38 mg/dL 0-50 HDL Risk Factor 5.3 CALC High 0.0-4.4 Complete Blood Count 12/01/2016 Renard Hurst(a) WBC 7.2 x10^3/UL 3.6 -9.6 RBC 4.40 x10^6/UL 3.90-5.70 HGB 14.5 g/dL 12.1-17.2 HCT 42 % 36-50 MCV 95.0 fL 82.2-97.4 MCH 32.9 pg 27.6-33.3 MCHC 34.5 g/dL 33.0-35.5 RDW 13.4 % 11.6-13.7 PLT 240 x10^3/UL 150-400 MPV 7.5 fL 7.4-10.4 Gran # 4.1 x10^3/UL 1.5-7.2 Lymph# 2.8 x10^3/UL 0.7-4.9 Duval# 0.3 x10^3/UL 0.1-0.9 Gran % 54.6 % 42.2-75.2 Lymph % 40.0 % 20.5-51.1 Duval% 5.4 % 1.7-9.3 Comprehensive Metabolic 12/01/2016 Glynn Natali([facility]) Sodium 138 mEq/L 134-149 Prof Potassium 4.1 mEq/L 3.6-5.5 Chloride 100 mEq/L 94-112 Carbon Dioxide 23 mEq/L 21-32 Glucose 90 mg/dL 70-105 BUN 18 mg/dL 6-26 Creatinine 0.8 mg/dL 0.6-1.4 BUN/Creat Ratio 22.5 CALC 8.0-36.0 Calcium 9.1 mg/dL 8.6-10.2 Total Protein 6.4 g/dL 6.4-8.3 Albumin 4.0 g/dL 3.8-5.5 Globulin 2.4 g/dL 2.0-4.8 A/G Ratio 1.7 CALC 0.6-2.3 Alk. Phosphatase 74 U/L 30-110 Alt (SGPT) 66 U/L High 7-35 11 Ast (Sgot) 27 U/L 5-34 Total Bilirubin 0.5 mg/dL 0.2-1.3 GFR Non- >60 ml/min/1.73m^ >=60 GFR >60 ml/min/1.73m^ >=60 Laboratory test 07/07/2016 [facility] Rapid Strep Negative N Negative 12 finding Molecular Laboratory test 04/14/2016 [facility] Urine Culture And SEE RESULT 13 finding Sensitivities BELOW Ua - Micro (a) 04/14/2016 [facility] Appearance clear (607)- - Color yellow Glucose, Urine (Fma/CMC/CTX) neg Bilirubin neg Ketones neg SP Grav 1.020 Blood neg PH 6.0 Protein neg Urobil 0.2 Nitrite neg Leukocytes (a/CMC/[facility]) neg Hyaline - /Lpf Granular - /Lpf WBC ([facility]) 1-2 # RBC 0-1 # Mucus - /Lpf Epith - /Lpf Bacteria trace /Hpf # Amorphous - /Lpf Crystals, Fluid (Fma/CMC/CTX) - Z#Comments - Ua - Micro ([facility]) 03/28/2016 [facility] Medicine Appearance clear (607)- - Color yellow Glucose, Urine (Fma/CMC/CTX) neg Bilirubin neg Ketones neg SP Grav 1.025 Blood neg PH 6.0 Protein neg Urobil 0.2 Nitrite neg Leukocytes (Fma/CMC/[facility]rex) neg WBC (a,[facility]) 1-2 # RBC - Mucus - /Lpf Epith few /Lpf # Bacteria - /Hpf Laboratory test finding 02/06/2016 [facility] Partial Thrombo Time 33.8 seconds N 26.0-36.3 PTT B Type Natriuretic Peptide 35 pg/mL N 14 Comp Metabolic Panel 02/06/2016 [facility] Sodium 137 mmol/L N 133-145 Potassium 3.7 mmol/L N 3.5-5.0 Chloride 105 mmol/L N 101-111 Co2 Carbon Dioxide 25 mmol/L N 22-32 Anion Gap 7 mmol/L N 2-11 Glucose 86 mg/dL N 70-100 Blood Urea Nitrogen 19 mg/dL N 6-24 Creatinine 0.80 mg/dL N 0.51-0.95 BUN/Creatinine Ratio 23.8 High 8-20 Calcium 9.6 mg/dL N 8.6-10.3 Total Protein 6.7 g/dL N 6.4-8.9 Albumin 4.0 g/dL N 3.2-5.2 Globulin 2.7 g/dL N 2-4 Albumin/Globulin Ratio 1.5 N 1-3 Total Bilirubin 0.30 mg/dL N 0.2-1.0 Alkaline Phosphatase 65 U/L N 34-104 Alt 41 U/L N 7-52 Ast 20 U/L N 13-39 Egfr Non- 78.3 N >60 Egfr 100.7 N >60 15 CKMB 02/06/2016 [facility] CKMB ng/mL 1.2 ng/mL N 0.6-6.3 Laboratory test finding 02/06/2016 [facility] Lactic Acid 0.5 mmol/L N 0.5-2.0 16 Laboratory test finding 02/06/2016 [facility] HCG 1.51 mIU/mL N 17 TSH (Thyroid Stim Horm) 3.05 mcIU/mL N 0.34-5.60 Inr/Protime 02/06/2016 [facility] Inr 0.95 N 0.89-1.11 CBC Auto Diff 02/06/2016 [facility] White Blood Count 9.2 10^3/uL N 3.5-10.8 Red Blood Count 4.38 10^6/uL N 4.0-5.4 Hemoglobin 14.0 g/dL N 12.0-16.0 Hematocrit 40 % N 35-47 Mean Corpuscular Volume 92 fL N 80-97 Mean Corpuscular Hemoglobin 32 pg High 27-31 Mean Corpuscular HGB Conc 35 g/dL N 31-36 Red Cell Distribution Width 13 % N 10.5-15 Platelet Count 206 10^3/uL N 150-450 Mean Platelet Volume 9 um3 N 7.4-10.4 Abs Neutrophils 4.2 10^3/uL N 1.5-7.7 Abs Lymphocytes 3.9 10^3/uL N 1.0-4.8 Abs Monocytes 0.8 10^3/uL N 0-0.8 Abs Eosinophils 0.3 10^3/uL N 0-0.6 Abs Basophils 0.1 10^3/uL N 0-0.2 Abs Nucleated RBC 0.02 10^3/uL N Granulocyte % 45.1 % N 38-83 Lymphocyte % 42.3 % N 25-47 Monocyte % 8.7 % N 1-9 Eosinophil % 3.0 % N 0-6 Basophil % 0.9 % N 0-2 Nucleated Red Blood Cells % 0.2 N Laboratory test finding 02/06/2016 [facility] [place] Magnesium 2.0 mg/dL N 1.9-2.7 Lipase 32 U/L N 11.0-82.0 C Reactive Protein 7.25 mg/L High < 5.00 18 Troponin I 0.00 ng/mL N <0.03 19 Laboratory test 02/06/2016 [facility] [place] D Dimer Quantitative < 200 ng/mL N Less Than 230 20 finding Comp Metabolic 11/16/2015 [facility] [place] Sodium 138 mmol/L N 133-145 Panel Potassium 4.1 mmol/L N 3.5-5.0 Chloride 103 mmol/L N 101-111 Co2 Carbon Dioxide 27 mmol/L N 22-32 Anion Gap 8 mmol/L N 2-11 Glucose 76 mg/dL N 70-100 Blood Urea Nitrogen 15 mg/dL N 6-24 Creatinine 0.84 mg/dL N 0.51-0.95 BUN/Creatinine Ratio 17.9 N 8-20 Calcium 9.9 mg/dL N 8.6-10.3 Total Protein 6.8 g/dL N 6.4-8.9 Albumin 4.4 g/dL N 3.2-5.2 Globulin 2.4 g/dL N 2-4 Albumin/Globulin Ratio 1.8 N 1-3 Total Bilirubin 0.50 mg/dL N 0.2-1.0 Alkaline Phosphatase 77 U/L N 34-104 Alt 42 U/L N 7-52 Ast 20 U/L N 13-39 Egfr Non- 74.0 N >60 Egfr 95.2 N >60 21 CBC Auto Diff 11/16/2015 [facility] [place] White Blood Count 8.8 10^3/uL N 3.5-10.8 Red Blood Count 4.69 10^6/uL N 4.0-5.4 Hemoglobin 14.6 g/dL N 12.0-16.0 Hematocrit 43 % N 35-47 Mean Corpuscular Volume 91 fL N 80-97 Mean Corpuscular Hemoglobin 31 pg N 27-31 Mean Corpuscular HGB Conc 34 g/dL N 31-36 Red Cell Distribution Width 14 % N 10.5-15 Platelet Count 230 10^3/uL N 150-450 Mean Platelet Volume 8 um3 N 7.4-10.4 Abs Neutrophils 5.2 10^3/uL N 1.5-7.7 Abs Lymphocytes 2.7 10^3/uL N 1.0-4.8 Abs Monocytes 0.6 10^3/uL N 0-0.8 Abs Eosinophils 0.2 10^3/uL N 0-0.6 Abs Basophils 0 10^3/uL N 0-0.2 Abs Nucleated RBC 0.01 10^3/uL N Granulocyte % 58.9 % N 38-83 Lymphocyte % 31.2 % N 25-47 Monocyte % 7.3 % N 1-9 Eosinophil % 2.2 % N 0-6 Basophil % 0.4 % N 0-2 Nucleated Red Blood Cells % 0.1 N CBC Auto Diff 08/29/2015 [facility] [place] White Blood Count 9.0 10^3/uL N 3.5-10.8 Red Blood Count 4.73 10^6/uL N 4.0-5.4 Hemoglobin 14.5 g/dL N 12.0-16.0 Hematocrit 44 % N 35-47 Mean Corpuscular Volume 93 fL N 80-97 Mean Corpuscular Hemoglobin 31 pg N 27-31 Mean Corpuscular HGB Conc 33 g/dL N 31-36 Red Cell Distribution Width 13 % N 10.5-15 Platelet Count 308 10^3/uL N 150-450 Mean Platelet Volume 8 um3 N 7.4-10.4 Abs Neutrophils 4.3 10^3/uL N 1.5-7.7 Abs Lymphocytes 3.5 10^3/uL N 1.0-4.8 Abs Monocytes 0.9 10^3/uL High 0-0.8 Abs Eosinophils 0.3 10^3/uL N 0-0.6 Abs Basophils 0.1 10^3/uL N 0-0.2 Abs Nucleated RBC 0 10^3/uL N Granulocyte % 47.8 % N 38-83 Lymphocyte % 38.3 % N 25-47 Monocyte % 9.5 % High 1-9 Eosinophil % 3.4 % N 0-6 Basophil % 1.0 % N 0-2 Nucleated Red Blood Cells % 0 N Basic Metabolic Panel 08/29/2015 [facility] [place] Sodium 138 mmol/L N 133-145 Potassium 3.8 mmol/L N 3.5-5.0 Chloride 104 mmol/L N 101-111 Co2 Carbon Dioxide 28 mmol/L N 22-32 Anion Gap 6 mmol/L N 2-11 Glucose 91 mg/dL N 70-100 Blood Urea Nitrogen 21 mg/dL N 6-24 Creatinine 0.88 mg/dL N 0.51-0.95 BUN/Creatinine Ratio 23.9 High 8-20 Calcium 9.6 mg/dL N 8.6-10.3 Egfr Non- 70.1 N >60 Egfr 90.2 N >60 22 Inr/Protime 08/24/2015 [facility] [place] Inr 0.98 N 0.89-1.11 CBC Auto Diff 08/24/2015 [facility] [place] White Blood Count 14.7 10^3/uL High 3.5- 10.8 Red Blood Count 4.23 10^6/uL N 4.0-5.4 Hemoglobin 13.1 g/dL N 12.0-16.0 Hematocrit 39 % N 35-47 Mean Corpuscular Volume 93 fL N 80-97 Mean Corpuscular Hemoglobin 31 pg N 27-31 Mean Corpuscular HGB Conc 33 g/dL N 31-36 Red Cell Distribution Width 13 % N 10.5-15 Platelet Count 334 10^3/uL N 150-450 Mean Platelet Volume 8 um3 N 7.4-10.4 Abs Neutrophils 5.6 10^3/uL N 1.5-7.7 Abs Lymphocytes 7.0 10^3/uL High 1.0-4.8 Abs Monocytes 1.6 10^3/uL High 0-0.8 Abs Eosinophils 0.5 10^3/uL N 0-0.6 Abs Basophils 0.1 10^3/uL N 0-0.2 Abs Nucleated RBC 0.02 10^3/uL N Granulocyte % 37.9 % Low 38-83 Lymphocyte % 47.4 % High 25-47 Monocyte % 10.6 % High 1-9 Eosinophil % 3.2 % N 0-6 Basophil % 0.9 % N 0-2 Nucleated Red Blood Cells % 0.1 N Comp Metabolic Panel 08/24/2015 [facility] [place] Sodium 141 mmol/L N 133-145 Potassium 2.9 mmol/L Low 3.5-5.0 Chloride 108 mmol/L N 101-111 Co2 Carbon Dioxide 25 mmol/L N 22-32 Anion Gap 8 mmol/L N 2-11 Glucose 112 mg/dL High 70-100 Blood Urea Nitrogen 13 mg/dL N 6-24 Creatinine 1.03 mg/dL High 0.51-0.95 BUN/Creatinine Ratio 12.6 N 8-20 Calcium 9.0 mg/dL N 8.6-10.3 Total Protein 6.5 g/dL N 6.4-8.9 Albumin 3.9 g/dL N 3.2-5.2 Globulin 2.6 g/dL N 2-4 Albumin/Globulin Ratio 1.5 N 1-3 Total Bilirubin 0.30 mg/dL N 0.2-1.0 Alkaline Phosphatase 59 U/L N 34-104 Alt 27 U/L N 7-52 Ast 19 U/L N 13-39 Egfr Non- 58.5 N >60 Egfr 75.2 N >60 23 Laboratory test finding 08/24/2015 [facility] [place] Troponin I 0.00 ng/mL N <0.03 24 Magnesium 1.8 mg/dL Low 1.9-2.7 TSH (Thyroid Stim Horm) 1.59 ?IU/mL N 0.34-5.60 Pathologist Review (SEE NOTE) N 25 CBC Auto Diff 08/13/2015 [facility] [place] White Blood Count 10.9 10^3/uL High 3.5- 10.8 Red Blood Count 4.21 10^6/uL N 4.0-5.4 Hemoglobin 13.1 g/dL N 12.0-16.0 Hematocrit 39 % N 35-47 Mean Corpuscular Volume 93 fL N 80-97 Mean Corpuscular Hemoglobin 31 pg N 27-31 Mean Corpuscular HGB Conc 34 g/dL N 31-36 Red Cell Distribution Width 13 % N 10.5-15 Platelet Count 250 10^3/uL N 150-450 Mean Platelet Volume 9 um3 N 7.4-10.4 Abs Neutrophils 7.8 10^3/uL High 1.5-7.7 Abs Lymphocytes 2.2 10^3/uL N 1.0-4.8 Abs Monocytes 0.6 10^3/uL N 0-0.8 Abs Eosinophils 0.2 10^3/uL N 0-0.6 Abs Basophils 0.1 10^3/uL N 0-0.2 Abs Nucleated RBC 0 10^3/uL N Granulocyte % 71.1 % N 38-83 Lymphocyte % 20.3 % Low 25-47 Monocyte % 5.7 % N 1-9 Eosinophil % 2.1 % N 0-6 Basophil % 0.8 % N 0-2 Nucleated Red Blood Cells % 0 N Urinalysis Profile 08/13/2015 [facility] Urine Color Yellow N Urine Appearance Clear N Urine Specific [place] 1.011 N 1.010-1.030 Urine pH 6.0 N 5-9 Urine Urobilinogen Negative N Negative Urine Ketones Negative N Negative Urine Protein Negative N Negative Urine Leukocytes Negative N Negative Urine Blood Negative N Negative Urine Nitrite Negative N Negative Urine Bilirubin Negative N Negative Urine Glucose Negative N Negative Comp Metabolic Panel 08/13/2015 [facility] Sodium 140 mmol/L N 133-145 Potassium 3.9 mmol/L N 3.5-5.0 Chloride 106 mmol/L N 101-111 Co2 Carbon Dioxide 28 mmol/L N 22-32 Anion Gap 6 mmol/L N 2-11 Glucose 105 mg/dL High 70-100 Blood Urea Nitrogen 15 mg/dL N 6-24 Creatinine 0.89 mg/dL N 0.51-0.95 BUN/Creatinine Ratio 16.9 N 8-20 Calcium 9.4 mg/dL N 8.6-10.3 Total Protein 6.3 g/dL Low 6.4-8.9 Albumin 4.0 g/dL N 3.2-5.2 Globulin 2.3 g/dL N 2-4 Albumin/Globulin Ratio 1.7 N 1-3 Total Bilirubin 0.30 mg/dL N 0.2-1.0 Alkaline Phosphatase 54 U/L N 34-104 Alt 17 U/L N 7-52 Ast 14 U/L N 13-39 Egfr Non- 69.2 N >60 Egfr 89.0 N >60 26 Lipid Profile 05/21/2015 Renard Hurst([facility]) Cholesterol 213 mg/dL High 120-200 Triglycerides 126 mg/dL 30-200 HDL Cholesterol 58 mg/dL 30-85 LDL (Calculated) 130 CALC High 0-129 VLDL Cholesterol 25 mg/dL 0-50 HDL Risk Factor 3.7 CALC 0.0-4.4 Comprehensive Metabolic 05/21/2015 Renard Hurst([facility]) Sodium 139 mEq/L 134-149 Prof Potassium 3.8 mEq/L 3.6-5.5 Chloride 100 mEq/L 94-112 Carbon Dioxide 23 mEq/L 21-32 Glucose 98 mg/dL 70-105 BUN 18 mg/dL 6-26 Creatinine 1.2 mg/dL 0.6-1.4 BUN/Creat Ratio 15.0 CALC 8.0-36.0 Calcium 9.7 mg/dL 8.6-10.2 Total Protein 7.2 g/dL 6.4-8.3 Albumin 4.6 g/dL 3.8-5.5 Globulin 2.6 g/dL 2.0-4.8 A/G Ratio 1.8 CALC 0.6-2.3 Alk. Phosphatase 71 U/L 30-110 Alt (SGPT) 35 U/L 7-35 Ast (Sgot) 26 U/L 5-34 Total Bilirubin 0.4 mg/dL 0.2-1.3 GFR Non- 52 ml/min/1.73m^ Low >=60 GFR >60 ml/min/1.73m^ >=60 Laboratory test finding 05/21/2015 Renard Hurst([facility]) TSH 1.57 mIU/L 0.50-6.00 Complete Blood Count 05/21/2015 Renard Hurst([facility]) WBC 8.9 x10^3/UL 3.6 -9.6 RBC 4.41 x10^6/UL 3.90-5.70 HGB 13.8 g/dL 12.1-17.2 HCT 41 % 36-50 MCV 92.0 fL 82.2-97.4 MCH 31.4 pg 27.6-33.3 MCHC 33.9 g/dL 33.0-35.5 RDW 12.8 % 11.6-13.7 PLT 255 x10^3/UL 150-400 MPV 7.7 fL 7.4-10.4 Gran # 5.9 x10^3/UL 1.5-7.2 Lymph# 2.7 x10^3/UL 0.7-4.9 [place]# 0.3 x10^3/UL 0.1-0.9 Gran % 64.4 % 42.2-75.2 Lymph % 31.4 % 20.5-51.1 [place]% 4.2 % 1.7-9.3 Laboratory test 01/05/2015 [facility] [place] Lab Test thyroid finding results Laboratory test 10/31/2014 [facility] [place] Clotest SEE RESULT 27 finding BELOW Laboratory test 10/31/2014 [facility] [place] Surgical SEE RESULT 28 finding Pathology BELOW Comprehensive 10/10/2014 Renard Hurst([facility]) Sodium 138 mEq/L 134-14 Metabolic Prof 9 Potassium 3.8 mEq/L 3.6-5.5 Chloride 101 mEq/L 94-112 Carbon Dioxide 25 mEq/L 21-32 Glucose 79 mg/dL 70-105 BUN 17 mg/dL 6-26 Creatinine 0.8 mg/dL 0.6-1.4 BUN/Creat Ratio 21.3 CALC 8.0-36.0 Calcium 10.0 mg/dL 8.6-10.2 Total Protein 6.8 g/dL 6.4-8.3 Albumin 4.3 g/dL 3.8-5.5 Globulin 2.5 g/dL 2.0-4.8 A/G Ratio 1.7 CALC 0.6-2.3 Alk. Phosphatase 58 U/L 30-110 Alt (SGPT) 73 U/L High 7-35 29 Ast (Sgot) 36 U/L High 5-34 30 Total Bilirubin 0.5 mg/dL 0.2-1.3 Lipid Profile 10/10/2014 [facility] Hur[facility]) Cholesterol 250 mg/dL High 120-200 Triglycerides 156 mg/dL 30-200 HDL Cholesterol 52 mg/dL 30-85 LDL (Calculated) 167 CALC High 0-129 VLDL Cholesterol 31 mg/dL 0-50 HDL Risk Factor 4.8 CALC High 0.0-4.4 Complete Blood Count 10/10/2014 [facility]) WBC 6.6 x10^3/UL 3.6 -9.6 RBC 4.54 x10^6/UL 3.90-5.70 HGB 14.7 g/dL 12.1-17.2 HCT 43 % 36-50 MCV 95.0 fL 82.2-97.4 MCH 32.3 pg 27.6-33.3 MCHC 34.0 g/dL 33.0-35.5 RDW 13.1 % 11.6-13.7 PLT 243 x10^3/UL 150-400 MPV 6.9 fL Low 7.4-10.4 Gran # 3.5 x10^3/UL 1.5-7.2 Lymph# 2.8 x10^3/UL 0.7-4.9 [place]# 0.3 x10^3/UL 0.1-0.9 Gran % 52.3 % 42.2-75.2 Lymph % 43.1 % 20.5-51.1 [place]% 4.6 % 1.7-9.3 CBC Auto Diff 08/15/2014 [facility] [place] White Blood Count 7.5 10^3/uL N 4.8-10.8 Red Blood Count 4.54 10^6/uL N 4.0-5.4 Hemoglobin 14.3 g/dL N 12.0-16.0 Hematocrit 42 % N 35-47 Mean Corpuscular Volume 93 fL N 80-97 Mean Corpuscular Hemoglobin 32 pg High 27-31 Mean Corpuscular HGB Conc 34 g/dL N 31-36 Red Cell Distribution Width 13 % N 10.5-15 Platelet Count 339 10^3/uL N 150-450 Mean Platelet Volume 8 um3 N 7.4-10.4 Abs Neutrophils 3.9 10^3/uL N 1.5-7.7 Abs Lymphocytes 2.8 10^3/uL N 1.0-4.8 Abs Monocytes 0.5 10^3/uL N 0-0.8 Abs Eosinophils 0.2 10^3/uL N 0-0.6 Abs Basophils 0.1 10^3/uL N 0-0.2 Abs Nucleated RBC 0.01 10^3/uL N Granulocyte % 51.2 % N 38-83 Lymphocyte % 37.6 % N 25-47 Monocyte % 7.2 % N 1-9 Eosinophil % 3.3 % N 0-6 Basophil % 0.7 % N 0-2 Nucleated Red Blood Cells % 0.2 N Comp Metabolic Panel 08/15/2014 [facility] [place] Sodium 137 mmol/L N 133-145 Potassium 3.7 mmol/L N 3.5-5.0 Chloride 105 mmol/L N 101-111 Co2 Carbon Dioxide 25 mmol/L N 22-32 Anion Gap 7 mmol/L N 2-11 Glucose 112 mg/dL High 70-100 Blood Urea Nitrogen 18 mg/dL N 6-24 Creatinine 0.84 mg/dL N 0.51-0.95 BUN/Creatinine Ratio 21.4 High 8-20 Calcium 10.0 mg/dL N 8.6-10.3 Total Protein 6.8 g/dL N 6.4-8.9 Albumin 4.2 g/dL N 3.2-5.2 Globulin 2.6 g/dL N 2-4 Albumin/Globulin Ratio 1.6 N 1-3 Total Bilirubin 0.40 mg/dL N 0.2-1.0 Alkaline Phosphatase 68 U/L N 34-104 Alt 30 U/L N 7-52 Ast 16 U/L N 13-39 Egfr Non- 74.4 N >60 Egfr 95.6 N >60 31 Laboratory test finding 07/19/2014 [facility] [place] Troponin I 0.00 ng/mL N <0.03 32 CBC Auto Diff 07/19/2014 [facility] [place] White Blood Count 7.1 10^3/uL N 4.8-10.8 Red Blood Count 4.73 10^6/uL N 4.0-5.4 Hemoglobin 15.0 g/dL N 12.0-16.0 Hematocrit 44 % N 35-47 Mean Corpuscular Volume 93 fL N 80-97 Mean Corpuscular Hemoglobin 32 pg High 27-31 Mean Corpuscular HGB Conc 34 g/dL N 31-36 Red Cell Distribution Width 13 % N 10.5-15 Platelet Count 216 10^3/uL N 150-450 Mean Platelet Volume 9 um3 N 7.4-10.4 Abs Neutrophils 3.5 10^3/uL N 1.5-7.7 Abs Lymphocytes 2.8 10^3/uL N 1.0-4.8 Abs Monocytes 0.5 10^3/uL N 0-0.8 Abs Eosinophils 0.3 10^3/uL N 0-0.6 Abs Basophils 0.1 10^3/uL N 0-0.2 Abs Nucleated RBC 0 10^3/uL N Granulocyte % 48.5 % N 38-83 Lymphocyte % 39.7 % N 25-47 Monocyte % 7.2 % N 1-9 Eosinophil % 3.8 % N 0-6 Basophil % 0.8 % N 0-2 Nucleated Red Blood Cells % 0 N Comp Metabolic Panel 07/19/2014 [facility] [place] Sodium 137 mmol/L N 133-145 Potassium 3.8 mmol/L N 3.5-5.0 Chloride 105 mmol/L N 101-111 Co2 Carbon Dioxide 25 mmol/L N 22-32 Anion Gap 7 mmol/L N 2-11 Glucose 93 mg/dL N 70-100 Blood Urea Nitrogen 15 mg/dL N 6-24 Creatinine 0.85 mg/dL N 0.51-0.95 BUN/Creatinine Ratio 17.6 N 8-20 Calcium 9.6 mg/dL N 8.6-10.3 Total Protein 7.1 g/dL N 6.4-8.9 Albumin 4.4 g/dL N 3.2-5.2 Globulin 2.7 g/dL N 2-4 Albumin/Globulin Ratio 1.6 N 1-3 Total Bilirubin 0.50 mg/dL N 0.2-1.0 Alkaline Phosphatase 67 U/L N 34-104 Alt 33 U/L N 7-52 Ast 19 U/L N 13-39 Egfr Non- 73.3 N >60 Egfr 94.3 N >60 33 Laboratory test finding 07/19/2014 [facility] [place] Troponin I 0.00 ng/mL N <0.03 34 CBC Auto Diff 05/12/2014 [facility] [place] White Blood Count 6.8 10^3/uL N 4.8-10.8 Red Blood Count 4.48 10^6/uL N 4.0-5.4 Hemoglobin 14.1 g/dL N 12.0-16.0 Hematocrit 41 % N 35-47 Mean Corpuscular Volume 92 fL N 80-97 Mean Corpuscular Hemoglobin 32 pg High 27-31 Mean Corpuscular HGB Conc 34 g/dL N 31-36 Red Cell Distribution Width 13 % N 10.5-15 Platelet Count 204 10^3/uL N 150-450 Mean Platelet Volume 9 um3 N 7.4-10.4 Abs Neutrophils 4.2 10^3/uL N 1.5-7.7 Abs Lymphocytes 1.8 10^3/uL N 1.0-4.8 Abs Monocytes 0.7 10^3/uL N 0-0.8 Abs Eosinophils 0.1 10^3/uL N 0-0.6 Abs Basophils 0 10^3/uL N 0-0.2 Abs Nucleated RBC 0.01 10^3/uL N Granulocyte % 62.1 % N 38-83 Lymphocyte % 26.0 % N 25-47 Monocyte % 9.8 % High 1-9 Eosinophil % 1.4 % N 0-6 Basophil % 0.7 % N 0-2 Nucleated Red Blood Cells % 0.1 N Comp Metabolic Panel 05/12/2014 [facility] Sodium 137 mmol/L N 133-145 Potassium 3.8 mmol/L N 3.5-5.0 Chloride 104 mmol/L N 101-111 Co2 Carbon Dioxide 26 mmol/L N 22-32 Anion Gap 7 mmol/L N 2-11 Glucose 94 mg/dL N 70-100 Blood Urea Nitrogen 12 mg/dL N 6-24 Creatinine 0.82 mg/dL N 0.51-0.95 BUN/Creatinine Ratio 14.6 N 8-20 Calcium 9.5 mg/dL N 8.6-10.3 Total Protein 6.8 g/dL N 6.4-8.9 Albumin 4.3 g/dL N 3.2-5.2 Globulin 2.5 g/dL N 2-4 Albumin/Globulin Ratio 1.7 N 1-3 Total Bilirubin 0.40 mg/dL N 0.2-1.0 Alkaline Phosphatase 71 U/L N 34-104 Alt 33 U/L N 7-52 Ast 20 U/L N 13-39 Egfr Non- 76.8 N >60 Egfr 98.8 N >60 35 CBC Auto Diff 04/18/2014 [facility] White Blood Count 8.1 10^3/uL N 4.8-10.8 Red Blood Count 4.46 10^6/uL N 4.0-5.4 Hemoglobin 13.9 g/dL N 12.0-16.0 Hematocrit 42 % N 35-47 Mean Corpuscular Volume 94 fL N 80-97 Mean Corpuscular Hemoglobin 31 pg N 27-31 Mean Corpuscular HGB Conc 33 g/dL N 31-36 Red Cell Distribution Width 13 % N 10.5-15 Platelet Count 278 10^3/uL N 150-450 Mean Platelet Volume 8 um3 N 7.4-10.4 Abs Neutrophils 4.5 10^3/uL N 1.5-7.7 Abs Lymphocytes 2.8 10^3/uL N 1.0-4.8 Abs Monocytes 0.5 10^3/uL N 0-0.8 Abs Eosinophils 0.2 10^3/uL N 0-0.6 Abs Basophils 0 10^3/uL N 0-0.2 Abs Nucleated RBC 0 10^3/uL N Granulocyte % 56.0 % N 38-83 Lymphocyte % 35.0 % N 25-47 Monocyte % 5.9 % N 1-9 Eosinophil % 2.5 % N 0-6 Basophil % 0.6 % N 0-2 Nucleated Red Blood Cells % 0 N Comp Metabolic Panel 04/18/2014 [facility] Sodium 140 mmol/L N 133-145 Potassium 3.5 mmol/L N 3.5-5.0 36 Chloride 105 mmol/L N 101-111 Co2 Carbon Dioxide 28 mmol/L N 22-32 Anion Gap 7 mmol/L N 2-11 Glucose 93 mg/dL N 70-100 Blood Urea Nitrogen 14 mg/dL N 6-24 Creatinine 0.75 mg/dL N 0.51-0.95 BUN/Creatinine Ratio 18.7 N 8-20 Calcium 9.6 mg/dL N 8.6-10.3 Total Protein 7.0 g/dL N 6.4-8.9 Albumin 4.2 g/dL N 3.2-5.2 Globulin 2.8 g/dL N 2-4 Albumin/Globulin Ratio 1.5 N 1-3 Total Bilirubin 0.40 mg/dL N 0.2-1.0 Alkaline Phosphatase 65 U/L N 34-104 Alt 31 U/L N 7-52 Ast 21 U/L N 13-39 Egfr Non- 85.2 N >60 Egfr 109.5 N >60 37 Comp Metabolic Panel 02/17/2014 [facility] [place] Sodium 137 mmol/L 133-145 Potassium 3.6 mmol/L Low 3.7-5.6 Chloride 107 mmol/L 101-111 Co2 Carbon Dioxide 23 mmol/L 22-32 Anion Gap 7 mmol/L 2-11 Glucose 73 mg/dL 70-100 Blood Urea Nitrogen 11 mg/dL 6-24 Creatinine 0.83 mg/dL 0.51-0.95 BUN/Creatinine Ratio 13.3 8-20 Calcium 9.5 mg/dL 8.6-10.3 Total Protein 7.2 g/dL 6.4-8.9 Albumin 4.3 g/dL 3.2-5.2 Globulin 2.9 g/dL 2-4 Albumin/Globulin Ratio 1.5 1-3 Total Bilirubin 0.40 mg/dL 0.2-1.0 Alkaline Phosphatase 72 U/L 34-104 Alt 30 U/L 7-52 Ast 19 U/L 13-39 Egfr Non- 75.8 >60 Egfr 97.4 >60 38 Laboratory test finding 02/17/2014 [facility] [place] Uric Acid 7.2 mg/dL High 2.3-6.6 C Reactive Protein 12.71 mg/L High < 5.00 39 CBC Auto Diff 02/17/2014 [facility] [place] White Blood Count 8.8 10^3/uL 4.8-10.8 Red Blood Count 4.31 10^6/uL 4.0-5.4 Hemoglobin 13.7 g/dL 12.0-16.0 Hematocrit 39 % 35-47 Mean Corpuscular Volume 89 fL 80-97 Mean Corpuscular Hemoglobin 32 pg High 27-31 Mean Corpuscular HGB Conc 36 g/dL 31-36 Red Cell Distribution Width 13 % 10.5-15 Platelet Count 251 10^3/uL 150-450 Mean Platelet Volume 8 um3 7.4-10.4 Abs Neutrophils 5.2 10^3/uL 1.5-7.7 Abs Lymphocytes 2.8 10^3/uL 1.0-4.8 Abs Monocytes 0.6 10^3/uL 0-0.8 Abs Eosinophils 0.2 10^3/uL 0-0.6 Abs Basophils 0.1 10^3/uL 0-0.2 Abs Nucleated RBC 0 10^3/uL Granulocyte % 59.0 % 38-83 Lymphocyte % 31.2 % 25-47 Monocyte % 6.3 % 1-9 Eosinophil % 2.4 % 0-6 Basophil % 1.1 % 0-2 Nucleated Red Blood Cells % 0 Laboratory test finding 02/17/2014 [facility] [place] Erythrocyte Sed Rate 25 mm/Hr High 0-14 Lyme Disease Serology Negative Negative 40 Comp Metabolic Panel 10/04/2013 [facility] [place] Sodium 138 mmol/L 133-145 Potassium 4.0 mmol/L 3.7-5.6 Chloride 106 mmol/L 101-111 Co2 Carbon Dioxide 26 mmol/L 22-32 Anion Gap 6 mmol/L 2-11 Glucose 90 mg/dL 70-100 Blood Urea Nitrogen 12 mg/dL 6-24 Creatinine 0.75 mg/dL 0.51-0.95 BUN/Creatinine Ratio 16.0 8-20 Calcium 9.2 mg/dL 8.6-10.3 Total Protein 6.4 g/dL 6.4-8.9 Albumin 4.1 g/dL 3.2-5.2 Globulin 2.3 g/dL 2-4 Albumin/Globulin Ratio 1.8 1-3 Total Bilirubin 0.40 mg/dL 0.2-1.0 Alkaline Phosphatase 71 U/L 34-104 Alt 33 U/L 7-52 Ast 15 U/L 13-39 Egfr Non- 85.2 >60 Egfr 109.5 >60 41 Laboratory test finding 10/04/2013 [facility] [place] Uric Acid 5.9 mg/dL 2.3-6.6 C Reactive Protein 8.45 mg/L High < 5.00 42 CBC Auto Diff 10/04/2013 [facility] [place] White Blood Count 6.9 10^3/uL 4.8-10.8 Red Blood Count 4.50 10^6/uL 4.0-5.4 Hemoglobin 14.4 g/dL 12.0-16.0 Hematocrit 41 % 35-47 Mean Corpuscular Volume 91 fL 80-97 Mean Corpuscular Hemoglobin 32 pg High 27-31 Mean Corpuscular HGB Conc 35 g/dL 31-36 Red Cell Distribution Width 13 % 10.5-15 Platelet Count 246 10^3/uL 150-450 Mean Platelet Volume 8 um3 7.4-10.4 Abs Neutrophils 3.9 10^3/uL 1.5-7.7 Abs Lymphocytes 2.2 10^3/uL 1.0-4.8 Abs Monocytes 0.5 10^3/uL 0-0.8 Abs Eosinophils 0.3 10^3/uL 0-0.6 Abs Basophils 0.1 10^3/uL 0-0.2 Abs Nucleated RBC 0 10^3/uL Granulocyte % 56.1 % 38-83 Lymphocyte % 32.1 % 25-47 Monocyte % 7.2 % 1-9 Eosinophil % 3.9 % 0-6 Basophil % 0.7 % 0-2 Nucleated Red Blood Cells % 0 Laboratory test 10/04/2013 [facility] [place] Erythrocyte Sed Rate 19 mm/Hr High 0-14 43 finding Comp Metabolic Panel 08/26/2013 [facility] [place] Sodium 140 mmol/L 133-145 Potassium 4.0 mmol/L 3.7-5.6 Chloride 106 mmol/L 101-111 Co2 Carbon Dioxide 28 mmol/L 22-32 Anion Gap 6 mmol/L 2-11 Glucose 75 mg/dL 70-100 Blood Urea Nitrogen 13 mg/dL 6-24 Creatinine 0.77 mg/dL 0.51-0.95 BUN/Creatinine Ratio 16.9 8-20 Calcium 9.6 mg/dL 8.6-10.3 Total Protein 6.7 g/dL 6.4-8.9 Albumin 4.3 g/dL 3.2-5.2 Globulin 2.4 g/dL 2-4 Albumin/Globulin Ratio 1.8 1-3 Total Bilirubin 0.30 mg/dL 0.2-1.0 Alkaline Phosphatase 69 U/L 34-104 Alt 34 U/L 7-52 Ast 17 U/L 13-39 Egfr Non- 82.6 >60 Egfr 106.2 >60 44 Laboratory test finding 08/26/2013 [facility] [place] LDH 151 U/L 140-271 CBC Auto Diff 08/26/2013 [facility] [place] White Blood Count 7.9 10^3/uL 4.8-10.8 Red Blood Count 4.20 10^6/uL 4.0-5.4 Hemoglobin 13.9 g/dL 12.0-16.0 Hematocrit 39 % 35-47 Mean Corpuscular Volume 93 fL 80-97 Mean Corpuscular Hemoglobin 33 pg High 27-31 Mean Corpuscular HGB Conc 35 g/dL 31-36 Red Cell Distribution Width 13 % 10.5-15 Platelet Count 261 10^3/uL 150-450 Mean Platelet Volume 9 um3 7.4-10.4 Abs Neutrophils 4.1 10^3/uL 1.5-7.7 Abs Lymphocytes 2.8 10^3/uL 1.0-4.8 Abs Monocytes 0.6 10^3/uL 0-0.8 Abs Eosinophils 0.3 10^3/uL 0-0.6 Abs Basophils 0.1 10^3/uL 0-0.2 Abs Nucleated RBC 0.01 10^3/uL Granulocyte % 51.8 % 38-83 Lymphocyte % 36.1 % 25-47 Monocyte % 7.4 % 1-9 Eosinophil % 3.9 % 0-6 Basophil % 0.8 % 0-2 Nucleated Red Blood Cells % 0.1 Laboratory test finding 08/26/2013 [facility] [place] Aldolase 5.9 U/L <7.7 45 Babesiosis Evaluation <1:64 titer <1:64 46 Ehrlichia Igg & Igm 08/10/2013 [facility] [place] Anaplasma phagocytophila <1:64 titer <1:64 47 Abs IgG Ehrlichia chaffeensis IgG AB <1:64 titer <1:64 48 Laboratory test finding 08/10/2013 [facility] [place] Lyme Disease Serology Equivocal Negative 49 Lyme Western Blot 08/10/2013 [facility] [place] Lyme Disease IgG Ab Negative Negative WB Lyme Disease IgG Bands Present p41, kDa Lyme Disease IgM Ab WB Negative Negative Lyme Disease IgM Bands Present No bands detecte <SEE NOTE> kDa 50 Lyme Disease Interpretation See Comment 51 Comp Metabolic Panel 08/02/2013 [facility] [place] Sodium 139 mmol/L 133-145 Potassium 4.1 mmol/L 3.7-5.6 Chloride 105 mmol/L 101-111 Co2 Carbon Dioxide 28 mmol/L 22-32 Anion Gap 6 mmol/L 2-11 Glucose 97 mg/dL 70-100 Blood Urea Nitrogen 12 mg/dL 6-24 Creatinine 0.88 mg/dL 0.51-0.95 BUN/Creatinine Ratio 13.6 8-20 Calcium 9.5 mg/dL 8.6-10.3 Total Protein 6.6 g/dL 6.4-8.9 Albumin 4.2 g/dL 3.2-5.2 Globulin 2.4 g/dL 2-4 Albumin/Globulin Ratio 1.8 1-3 Total Bilirubin 0.30 mg/dL 0.2-1.0 Alkaline Phosphatase 77 U/L 34-104 Alt 25 U/L 7-52 Ast 16 U/L 13-39 Egfr Non- 70.8 >60 Egfr 91.1 >60 52 Laboratory test finding 08/02/2013 [facility] [place] Creatine Kinase 45 U/L 10-223 CKMB 08/02/2013 [facility] [place] CKMB ng/mL 1.0 ng/mL 0.6-6.3 Laboratory test finding 08/02/2013 [facility] [place] Troponin I < 0.01 ng/mL <0.03 53 Myoglobin 17.1 ng/mL 14.3-65.8 TSH (Thyroid Stimulating Horm) 1.37 IU/mL 0.34-5.60 C Reactive Protein 9.46 mg/L 54 CBC Auto Diff 08/02/2013 [facility] [place] White Blood Count 11.1 10^3/uL High 4.8- 10.8 Red Blood Count 4.48 10^6/uL 4.0-5.4 Hemoglobin 14.1 g/dL 12.0-16.0 Hematocrit 42 % 35-47 Mean Corpuscular Volume 93 fL 80-97 Mean Corpuscular Hemoglobin 31 pg 27-31 Mean Corpuscular HGB Conc 34 g/dL 31-36 Red Cell Distribution Width 13 % 10.5-15 Platelet Count 246 10^3/uL 150-450 Mean Platelet Volume 8 um3 7.4-10.4 Abs Neutrophils 6.4 10^3/uL 1.5-7.7 Abs Lymphocytes 3.6 10^3/uL 1.0-4.8 Abs Monocytes 0.8 10^3/uL 0-0.8 Abs Eosinophils 0.3 10^3/uL 0-0.6 Abs Basophils 0.1 10^3/uL 0-0.2 Abs Nucleated RBC 0.01 10^3/uL Granulocyte % 57.5 % 38-83 Lymphocyte % 32.7 % 25-47 Monocyte % 7.0 % 1-9 Eosinophil % 2.3 % 0-6 Basophil % 0.5 % 0-2 Nucleated Red Blood Cells % 0.1 Laboratory test 08/02/2013 [facility] [place] Erythrocyte Sed Rate 22 mm/Hr High 0-14 finding Parvovirus B19 Igg & 08/02/2013 [facility] [place] Parvovirus (B19) IgG 2.87 index Abnormal <0.90 55 Igm Antibody Parvovirus (B19) IgM Antibody 0.09 index <0.90 56 Parvovirus Interpretation See Comment 57 Laboratory test 08/02/2013 [facility] [place] B Type Natriuretic 14 pg/mL 58 finding Peptide Inr/Protime 08/02/2013 [facility] [place] Inr 0.93 0.85-1.06 Laboratory test 08/02/2013 [facility] [place] Activated Partial 33.9 seconds 24.0-36.1 finding Thrombo Time D Dimer Quantitative < 200 ng/mL Less Than 230 59 Comprehensive Metabolic 08/01/2013 [facility] Natali(a) Sodium 143 mEq/L 134-149 Prof Potassium 4.5 mEq/L 3.6-5.5 Chloride 104 mEq/L 94-112 Carbon Dioxide 23 mEq/L 21-32 Glucose 87 mg/dL 70-105 BUN 19 mg/dL 6-26 Creatinine 1.0 mg/dL 0.6-1.4 BUN/Creat Ratio 19.0 CALC 8.0-36.0 Calcium 8.6 mg/dL 8.6-10.2 Total Protein 6.4 g/dL 6.3-8.1 Albumin 4.4 g/dL 3.8-5.5 Globulin 2.0 g/dL 2.0-4.8 A/G Ratio 2.2 CALC 0.6-2.3 Alk. Phosphatase 82 U/L 30-110 Alt (SGPT) 31 U/L 7-35 Ast (Sgot) 18 U/L 5-34 Total Bilirubin 0.1 mg/dL Low 0.2-1.3 60 Laboratory test 08/01/2013 [facility]nn Natali([facility]) TSH 3.06 mIU/L 0.50-6.00 finding Ua - Non Micro 08/01/2013 [facility] Appearance CLEAR ([facility]) ([phone] - Color YELLOW Glucose, Urine (Fma/CMC/CTX) NEG Bilirubin NEG Ketones NEG SP Grav 1.025 Blood NEG PH 6.0 Protein NEG Urobil 0.2 Nitrite NEG Leukocytes ([facility]) NEG Laboratory test 08/01/2013 [facility] Medicine Sed Rate 14mm finding (607)- - ([facility]) CBC Electronic 07/28/2013 [facility] WBC 7.9 3.6-9.6 ([facility]) (607)- - RBC 4.32 3.90-5.70 Hemoglobin ([facility]) 13.7 g/dL 12.1 - 17.2 Hematocrit ([facility]) 41.3 % 36.1 - 50.3 Platelets 271 10^3/ul 150-400 Lymph% 34.5 % 17.0-48.0 Mixed% 5.6 Neutrophils % 59.9 Mean Corpuscular Vol 96 82.2-97.4 Mean Corpuscular Hemoglobin 31.7 27.6-33.3 Mean Corpuscular Hemo Concen 33.1 32.0-36.0 RDW 13.8 High 11.6-13.7 Mean Platelet Volume 7.2 5.5-11.0 CBC Auto Diff 03/02/2013 [facility] White Blood Count 9.7 10^3/uL 4.8-10.8 Red Blood Count 4.37 10^6/uL 4.0-5.4 Hemoglobin 13.3 g/dL 12.0-16.0 Hematocrit 40 % 35-47 Mean Corpuscular Volume 92 fL 80-97 Mean Corpuscular Hemoglobin 30 pg 27-31 Mean Corpuscular HGB Conc 33 g/dL 31-36 Red Cell Distribution Width 13 % 10.5-15 Platelet Count 237 10^3/uL 150-450 Mean Platelet Volume 8 um3 7.4-10.4 Abs Neutrophils 6.2 10^3/uL 1.5-7.7 Abs Lymphocytes 2.5 10^3/uL 1.0-4.8 Abs Monocytes 0.6 10^3/uL 0-0.8 Abs Eosinophils 0.3 10^3/uL 0-0.6 Abs Basophils 0.1 10^3/uL 0-0.2 Abs Nucleated RBC 0 10^3/uL Granulocyte % 64.1 % 38-83 Lymphocyte % 25.9 % 25-47 Monocyte % 6.2 % 1-9 Eosinophil % 3.2 % 0-6 Basophil % 0.6 % 0-2 Nucleated Red Blood Cells % 0 Comp Metabolic Panel 03/02/2013 [facility] Sodium 137 mmol/L 133-145 Potassium 4.1 mmol/L 3.5-5.0 Chloride 106 mmol/L 101-111 Co2 Carbon Dioxide 25.0 mmol/L 22-32 Anion Gap 6.0 mmol/L 2-11 Glucose 90 mg/dL 70-100 Blood Urea Nitrogen 15 mg/dL 6-24 Creatinine 0.80 mg/dL 0.50-1.40 BUN/Creatinine Ratio 18.8 8-20 Calcium 9.7 mg/dL 8.1-9.9 Total Protein 6.2 g/dL 6.2-8.1 Albumin 3.8 g/dL 3.6-5.4 Globulin 2.4 g/dL 2-4 Albumin/Globulin Ratio 1.6 1-3 Total Bilirubin 0.6 mg/dL 0.4-1.5 Alkaline Phosphatase 75 U/L 30-110 Alt 33 U/L 14-54 Ast 24 U/L 12-42 Egfr Non- 79.4 >60 Egfr 102.2 >60 61 CBC Auto Diff 02/14/2013 [facility] White Blood Count 9.2 10^3/uL 4.8-10.8 Red Blood Count 4.48 10^6/uL 4.0-5.4 Hemoglobin 13.8 g/dL 12.0-16.0 Hematocrit 41 % 35-47 Mean Corpuscular Volume 92 fL 80-97 Mean Corpuscular Hemoglobin 31 pg 27-31 Mean Corpuscular HGB Conc 33 g/dL 31-36 Red Cell Distribution Width 14 % 10.5-15 Platelet Count 244 10^3/uL 150-450 Mean Platelet Volume 9 um3 7.4-10.4 Abs Neutrophils 5.3 10^3/uL 1.5-7.7 Abs Lymphocytes 2.9 10^3/uL 1.0-4.8 Abs Monocytes 0.6 10^3/uL 0-0.8 Abs Eosinophils 0.3 10^3/uL 0-0.6 Abs Basophils 0.1 10^3/uL 0-0.2 Abs Nucleated RBC 0.01 10^3/uL Granulocyte % 57.5 % 38-83 Lymphocyte % 31.9 % 25-47 Monocyte % 6.2 % 1-9 Eosinophil % 3.6 % 0-6 Basophil % 0.8 % 0-2 Nucleated Red Blood Cells % 0.1 Comp Metabolic Panel 02/14/2013 [facility] Sodium 138 mmol/L 133-145 Potassium 3.8 mmol/L 3.5-5.0 Chloride 104 mmol/L 101-111 Co2 Carbon Dioxide 25.0 mmol/L 22-32 Anion Gap 9.0 mmol/L 2-11 Glucose 87 mg/dL 70-100 Blood Urea Nitrogen 14 mg/dL 6-24 Creatinine 0.90 mg/dL 0.50-1.40 BUN/Creatinine Ratio 15.6 8-20 Calcium 9.8 mg/dL 8.1-9.9 Total Protein 7.1 g/dL 6.2-8.1 Albumin 4.0 g/dL 3.6-5.4 Globulin 3.1 g/dL 2-4 Albumin/Globulin Ratio 1.3 1-3 Total Bilirubin 0.6 mg/dL 0.4-1.5 Alkaline Phosphatase 82 U/L 30-110 Alt 23 U/L 14-54 Ast 20 U/L 12-42 Egfr Non- 69.3 >60 Egfr 89.2 >60 62 Laboratory test finding 01/04/2013 [facility] Lyme Disease Serology Negative Negative 63 CBC Auto Diff 12/26/2012 [facility] White Blood Count 9.7 10^3/uL 4.8-10.8 Red Blood Count 4.43 10^6/uL 4.0-5.4 Hemoglobin 14.1 g/dL 12.0-16.0 Hematocrit 41 % 35-47 Mean Corpuscular Volume 92 fL 80-97 Mean Corpuscular Hemoglobin 32 pg High 27-31 Mean Corpuscular HGB Conc 35 g/dL 31-36 Red Cell Distribution Width 12 % 10.5-15 Platelet Count 238 10^3/uL 150-450 Mean Platelet Volume 8 um3 7.4-10.4 Abs Neutrophils 6.4 10^3/uL 1.5-7.7 Abs Lymphocytes 2.2 10^3/uL 1.0-4.8 Abs Monocytes 0.7 10^3/uL 0-0.8 Abs Eosinophils 0.3 10^3/uL 0-0.6 Abs Basophils 0.1 10^3/uL 0-0.2 Abs Nucleated RBC 0 10^3/uL Granulocyte % 65.8 % 38-83 Lymphocyte % 23.1 % Low 25-47 Monocyte % 7.0 % 1-9 Eosinophil % 3.4 % 0-6 Basophil % 0.7 % 0-2 Nucleated Red Blood Cells % 0 Inr/Protime 12/26/2012 [facility] Inr 0.90 0.87-0.97 Laboratory test 12/26/2012 [facility] Activated Partial 33.0 seconds 22.18- 37.18 finding Thrombo Time Comp Metabolic Panel 12/26/2012 [facility] Sodium 139 mmol/L 133-145 Potassium 3.8 mmol/L 3.5-5.0 Chloride 108 mmol/L 101-111 Co2 Carbon Dioxide 25.0 mmol/L 22-32 Anion Gap 6.0 mmol/L 2-11 Glucose 93 mg/dL 70-100 Blood Urea Nitrogen 14 mg/dL 6-24 Creatinine 0.80 mg/dL 0.50-1.40 BUN/Creatinine Ratio 17.5 8-20 Calcium 9.5 mg/dL 8.1-9.9 Total Protein 7.1 g/dL 6.2-8.1 Albumin 4.1 g/dL 3.6-5.4 Globulin 3.0 g/dL 2-4 Albumin/Globulin Ratio 1.4 1-3 Total Bilirubin 0.6 mg/dL 0.4-1.5 Alkaline Phosphatase 61 U/L 30-110 Alt 25 U/L 14-54 Ast 19 U/L 12-42 Egfr Non- 79.4 >60 Egfr 102.2 >60 64 Laboratory test finding 12/26/2012 [facility] Troponin I 0 ng/mL 0-0.06 65 Lipid Profile (Trig/Chol/HDL) 12/26/2012 [facility] Triglycerides 138 mg/dL 40- 200 Cholesterol 226 mg/dL High Less than 200 HDL Cholesterol 44 mg/dL 40-60 66 Cholesterol/HDL Ratio 5.1 Average High 1-4.44 LDL Cholesterol 154.4 High Less Than 100 67 Lipid Profile 10/25/2012 Glynn Natali([facility]) Cholesterol 188 mg/dL 120- 200 HDL 42 mg/dL 30-85 Triglycerides 114 mg/dL 30-200 HDL Risk Factor 4.5 CALC High 0.0-4.4 LDL (Calculated) 123 CALC 0-129 VLDL (Calculated) 23 mg/dL 0-50 Comp Metabolic Panel 10/12/2012 [facility] Sodium 141 mmol/L 133-145 Potassium 3.6 mmol/L 3.5-5.0 Chloride 107 mmol/L 101-111 Co2 Carbon Dioxide 26.0 mmol/L 22-32 Anion Gap 8.0 mmol/L 2-11 Glucose 101 mg/dL High 70-100 Blood Urea Nitrogen 8 mg/dL 6-24 Creatinine 0.80 mg/dL 0.50-1.40 BUN/Creatinine Ratio 10.0 8-20 Calcium 9.8 mg/dL 8.1-9.9 Total Protein 6.6 g/dL 6.2-8.1 Albumin 3.9 g/dL 3.6-5.4 Globulin 2.7 g/dL 2-4 Albumin/Globulin Ratio 1.4 1-3 Total Bilirubin 0.5 mg/dL 0.4-1.5 Alkaline Phosphatase 65 U/L 30-110 Alt 35 U/L 14-54 Ast 22 U/L 12-42 Egfr Non- 79.4 >60 Egfr 102.2 >60 68 Laboratory test 10/12/2012 [facility] C Reactive Protein < 0.5 mg/dL Less than 0.5 finding CBC Auto Diff 10/12/2012 [facility] White Blood Count 8.9 10^3/uL 4.8-10.8 Red Blood Count 4.31 10^6/uL 4.0-5.4 Hemoglobin 13.7 g/dL 12.0-16.0 Hematocrit 40 % 35-47 Mean Corpuscular Volume 93 fL 80-97 Mean Corpuscular Hemoglobin 32 pg High 27-31 Mean Corpuscular HGB Conc 34 g/dL 31-36 Red Cell Distribution Width 14 % 10.5-15 Platelet Count 252 10^3/uL 150-450 Mean Platelet Volume 8 um3 7.4-10.4 Abs Neutrophils 5.1 10^3/uL 1.5-7.7 Abs Lymphocytes 2.8 10^3/uL 1.0-4.8 Abs Monocytes 0.6 10^3/uL 0-0.8 Abs Eosinophils 0.3 10^3/uL 0-0.6 Abs Basophils 0.1 10^3/uL 0-0.2 Abs Nucleated RBC 0 10^3/uL Granulocyte % 57.6 % 38-83 Lymphocyte % 31.8 % 25-47 Monocyte % 6.7 % 1-9 Eosinophil % 3.2 % 0-6 Basophil % 0.7 % 0-2 Nucleated Red Blood Cells % 0 Laboratory test finding 10/12/2012 [facility] Erythrocyte Sed Rate 20 mm/Hr High 0-14 Cyclic Citrullinated Pept IgG <15.6 U 69 Hla B27 10/12/2012 [facility] Hla B27 Negative 70 Hla B27 Interp See Comment 71 Immunoglobulins Serum Quant 10/12/2012 [facility] Immunoglobulin G 829 mg/dL 767 - 1590 72 Immunoglobulin M 41 mg/dL 37 - 286 Immunoglobulin A 228 mg/dL 61 - 356 Laboratory test finding 10/12/2012 [facility] Rheumatoid Factor <15 IU/mL <15 73 Urinalysis 09/15/2012 [facility] Urine Color Yellow Urine Appearance Clear Urine Specific [place] 1.006 Low 1.010-1.030 Urine Esterase Negative Negative Urine Nitrate Negative Negative Urine Urobilinogen Negative E.U./dL Negative Urine Protein Negative mg/dL Negative Urine pH 5.5 5-9 Urine Blood Negative Negative Urine Ketones Negative mg/dL Negative Urine Bilirubin Negative Negative Urine Glucose Negative mg/dL Negative CBC Auto Diff 09/15/2012 [facility] White Blood Count 8.0 10^3/uL 4.8-10.8 Red Blood Count 4.23 10^6/uL 4.0-5.4 Hemoglobin 13.5 g/dL 12.0-16.0 Hematocrit 40 % 35-47 Mean Corpuscular Volume 93 fL 80-97 Mean Corpuscular Hemoglobin 32 pg High 27-31 Mean Corpuscular HGB Conc 34 g/dL 31-36 Red Cell Distribution Width 13 % 10.5-15 Platelet Count 198 10^3/uL 150-450 Mean Platelet Volume 8 um3 7.4-10.4 Abs Neutrophils 4.1 10^3/uL 1.5-7.7 Abs Lymphocytes 3.0 10^3/uL 1.0-4.8 Abs Monocytes 0.6 10^3/uL 0-0.8 Abs Eosinophils 0.2 10^3/uL 0-0.6 Abs Basophils 0 10^3/uL 0-0.2 Abs Nucleated RBC 0 10^3/uL Granulocyte % 51.7 % 38-83 Lymphocyte % 38.0 % 25-47 Monocyte % 7.3 % 1-9 Eosinophil % 2.4 % 0-6 Basophil % 0.6 % 0-2 Nucleated Red Blood Cells % 0 Laboratory test finding 09/15/2012 [facility] Inr 0.79 Low 0.87-0.97 Activated Partial Thrombo Time 30.0 seconds 22.18-37.18 Comp Metabolic Panel 09/15/2012 [facility] Sodium 139 mmol/L 133-145 Potassium 4.1 mmol/L 3.5-5.0 Chloride 110 mmol/L 101-111 Co2 Carbon Dioxide 24.0 mmol/L 22-32 Anion Gap 5.0 mmol/L 2-11 Glucose 89 mg/dL 70-100 Blood Urea Nitrogen 19 mg/dL 6-24 Creatinine 0.80 mg/dL 0.50-1.40 BUN/Creatinine Ratio 23.8 High 8-20 Calcium 9.4 mg/dL 8.1-9.9 Total Protein 6.7 g/dL 6.2-8.1 Albumin 3.6 g/dL 3.6-5.4 Globulin 3.1 g/dL 2-4 Albumin/Globulin Ratio 1.2 1-3 Total Bilirubin 0.5 mg/dL 0.4-1.5 Alkaline Phosphatase 63 U/L 30-110 Alt 35 U/L 14-54 Ast 26 U/L 12-42 Egfr Non- 79.4 >60 Egfr 102.2 >60 74 Laboratory test finding 09/15/2012 [facility] Troponin I 0 ng/mL 0-0.06 75 1 C. Difficile toxin testing is not performed on formed stool specimens. Test of cure on positive 2 SEE RESULT BELOW Name: LISA BUSTAMANTE : [address]: Raul Molina MD Acct: [id number] Unit: [id number] AGE: 48 Location: [facility] Re08/18/18 SEX: F Status: REG REF SPEC: [id number] YONATAN: 08/18/[address]: Raul Molina MD REQ: [id number] RECD: 08/18/18 STATUS: COMP _ SOURCE: STOOL SPDESC: ORDERED: C. diff PCR, Stool Culture COMMENTS: C. Difficile toxin testing is not performed on formed stool specimens. Test of cure on positive patients is not recommended. Verbal to JOSH ANGLIN by [id number] at 1205 on 08/18/18. Results read back accurately. Verbal to ADRIANA Campos ([facility]) by [id number] at 1237 on 08/19/18. Results read back accurately. Procedure Result Reported Site Stool Culture Final 08/24/18- 1431 ML Organism 1 KLEBSIELLA OXYTOCA Result No additional pathogens isolated Klebsiella oxytoca may be a causative agent of antibiotic-associated hemorrhagic colitis. Testing for Salmonella, Shigella, Aeromonas, Plesiomonas, Yersinia and Campylobacter are included in a Stool Culture. Vibrio spp not routinely tested for in a stool culture. If testing is desired, please request specifically when placing test order. Sensitivities not routinely performed on stool isolates, as antibiotics may prolong the carriage rate of bacteria. Please contact the microbiology lab if sensitivities are required. CONTINUED ON NEXT PAGE DEPARTMENT OF PATHOLOGY, [address] [place] [address] Manjeet Munoz M.D. Director [facility] # [id number] Patient: LISA BUSTAMANTE [id number] (Continued) Specimen: [id number] Collected: 08/18/18 Received: 08/18/18 (Continued) Procedure Result Reported Site Stool Culture Final (continued) 08/24/18- 1431 Stool Specimen Description Final 08/18/18- 1152 ML Stool Color Brown Stool Form Formed Stool Consistency Firm Shiga Toxin 1 2 Final 08/19/18- 1351 ML Organism 1 Negative Shiga Toxin 1 2 Immunochromatographic Assay C. difficile PCR Final 08/18/18- 1152 ML Test not performed * ML - Main Lab . END OF REPORT DEPARTMENT OF PATHOLOGY, [address] [place] [address] Manjeet Munoz M.D. Director [facility] # [id number] 3 Please check labs 2 days before follow up 4 Because ethnic data is not always readily available, this report includes an eGFR for both -Americans and non- Americans. The National Kidney Disease Education Program (NKDEP) does not endorse the use of the MDRD equation for patients that are not between the ages of 18 and 70, are , have extremes of body size, muscle mass, or nutritional status, or are non- or non-. According to the National Kidney Foundation, irrespective of diagnosis, the stage of the disease is based on the level of kidney function: Stage Description GFR(mL/min/1.73 m(2)) 1 Kidney damage with normal or decreased GFR 90 2 Kidney damage with mild decrease in GFR 60-89 3 Moderate decrease in GFR 30-59 4 Severe decrease in GFR 15-29 5 Kidney failure <15 (or dialysis) 5 Please check labs 2 days before follow up 6 [id number] 7 SEE RESULT BELOW Name: LISA BUSTAMANTE : [address]: Elliot Méndez DO Acct: [id number] Unit: [id number] AGE: 47 Location: [facility] Re05/04/18 SEX: F Status: DEP REF SPEC: [id number] YONATAN: 05/04/18-[address] [facility] [address]: Elliot Méndez DO REQ: [id number] RECD: 05/04/18 STATUS: REZA MURPHY DR: Raul Molina MD _ ORDERED: LEVEL 4/2 COMMENTS: [id number] FINAL DIAGNOSIS 1. Stomach, biopsy: -- Fundic gland polyp. 2. Esophagus, distal, biopsy: -- Squamous and columnar-type mucosa with chronic inflammation. -- Intestinal metaplasia is absent. -- Dysplasia is absent. POST-OPERATIVE DIAGNOSIS EGD: 2.5 cm hiatal hernia with erosive esophagitis, biopsy to rule out Cruz?s; gastric - normal; duodenum - normal; conclusions: consider surgical repair GROSS DESCRIPTION 1. The specimen is received in formalin labeled, Biopsy Gastric Polyps, and consists of a 0.5 x 0.2 x 0.1 cm joyce-pink polypoid soft tissue fragment which is submitted entirely in one cassette. 2. The specimen is received in formalin labeled, Biopsy Distal Esophagus, and consists of a 0.6 x 0.4 x 0.1 cm aggregate of joyce-pink irregular soft tissue fragments which is submitted entirely in one cassette. Signed by and Reported on: Cici Tineo MD 05/05/18 1114 END OF REPORT DEPARTMENT OF PATHOLOGY, [address] [place] [address] Manjeet Munoz M.D. Director [facility] # [id number] 8 Because ethnic data is not always readily available, this report includes an eGFR for both -Americans and non- Americans. The National Kidney Disease Education Program (NKDEP) does not endorse the use of the MDRD equation for patients that are not between the ages of 18 and 70, are , have extremes of body size, muscle mass, or nutritional status, or are non- or non-. According to the National Kidney Foundation, irrespective of diagnosis, the stage of the disease is based on the level of kidney function: Stage Description GFR(mL/min/1.73 m(2)) 1 Kidney damage with normal or decreased GFR 90 2 Kidney damage with mild decrease in GFR 60-89 3 Moderate decrease in GFR 30-59 4 Severe decrease in GFR 15-29 5 Kidney failure <15 (or dialysis) 9 Because ethnic data is not always readily available, this report includes an eGFR for both -Americans and non- Americans. The National Kidney Disease Education Program (NKDEP) does not endorse the use of the MDRD equation for patients that are not between the ages of 18 and 70, are , have extremes of body size, muscle mass, or nutritional status, or are non- or non-. According to the National Kidney Foundation, irrespective of diagnosis, the stage of the disease is based on the level of kidney function: Stage Description GFR(mL/min/1.73 m(2)) 1 Kidney damage with normal or decreased GFR 90 2 Kidney damage with mild decrease in GFR 60-89 3 Moderate decrease in GFR 30-59 4 Severe decrease in GFR 15-29 5 Kidney failure <15 (or dialysis) 10 consistent w/ previous results 11 consistent w/ previous results 12 Comic Artist: [id number] Kanchan Im 13 SEE RESULT BELOW Name: LISA BUSTAMANTE Rajeev : [address]: Raul Molina MD Acct: [id number] Unit: [id number] AGE: 45 Location: [facility] Re04/14/16 SEX: F Status: REG REF SPEC: [id number] YONATAN: 04/14/16-[address] [facility] [address]: Raul Molina MD REQ: [id number] RECD: 04/14/16 STATUS: COMP _ SOURCE: URINE SPDESC: ORDERED: Urine Culture COMMENTS: [id number] lozano top tube Procedure Result Reported Site Urine Culture Final 04/15/16- 1626 ML No growth of clinically significant organisms * ML - MAIN LAB ([facility]) . END OF REPORT * ML=Testing performed at Main Lab DEPARTMENT OF PATHOLOGY, [address] [place] [address] Manjeet Munoz M.D. Director [facility] # [id number] 14 >100 to <200 pg/mL: likely compensated congestive heart failure (CHF) 200 to 400 pg/mL: likely moderate CHF >400 pg/mL: likely moderate to severe CHF 15 Because ethnic data is not always readily available, this report includes an eGFR for both -Americans and non- Americans. The National Kidney Disease Education Program (NKDEP) does not endorse the use of the MDRD equation for patients that are not between the ages of 18 and 70, are , have extremes of body size, muscle mass, or nutritional status, or are non- or non-. According to the National Kidney Foundation, irrespective of diagnosis, the stage of the disease is based on the level of kidney function: Stage Description GFR(mL/min/1.73 m(2)) 1 Kidney damage with normal or decreased GFR 90 2 Kidney damage with mild decrease in GFR 60-89 3 Moderate decrease in GFR 30-59 4 Severe decrease in GFR 15-29 5 Kidney failure <15 (or dialysis) 16 [facility] Severe Sepsis and Septic Shock Management Bundle Measure requires all lactic acids initially measuring >2.0 mmol/L be repeated. 17 <5.0 Negative 5.0 - 25.0 Indeterminate (Repeat testing recommended after 72 hours) >25.0 Positive Perimenopausal women can display HCG levels of up to 20 mIU/mL 18 Acute inflammation: >10.00 19 Reference Range and Interpretation: TnI (ng/mL) Interpretation Less Than 0.03 ng/mL Not supportive of diagnosis of MN 0.03 - 0.50 ng/mL Indeterminate: suggest serial studies if clinically indicated. Greater than 0.5 ng/mL Consistent with diagnosis of MN 20 Please note: The following may produce a false positive D Dimer test: - Rheumatoid factor greater than 60 IU/ml - Plasma hemoglobin greater than 0.05 gm/dl - Bilirubin greater than 50 mg/dl - Lipids greater than 1000 mg/dl - FDP greater than 20 ug/ml 21 Because ethnic data is not always readily available, this report includes an eGFR for both -Americans and non- Americans. The National Kidney Disease Education Program (NKDEP) does not endorse the use of the MDRD equation for patients that are not between the ages of 18 and 70, are , have extremes of body size, muscle mass, or nutritional status, or are non- or non-. According to the National Kidney Foundation, irrespective of diagnosis, the stage of the disease is based on the level of kidney function: Stage Description GFR(mL/min/1.73 m(2)) 1 Kidney damage with normal or decreased GFR 90 2 Kidney damage with mild decrease in GFR 60-89 3 Moderate decrease in GFR 30-59 4 Severe decrease in GFR 15-29 5 Kidney failure <15 (or dialysis) 22 Because ethnic data is not always readily available, this report includes an eGFR for both -Americans and non- Americans. The National Kidney Disease Education Program (NKDEP) does not endorse the use of the MDRD equation for patients that are not between the ages of 18 and 70, are , have extremes of body size, muscle mass, or nutritional status, or are non- or non-. According to the National Kidney Foundation, irrespective of diagnosis, the stage of the disease is based on the level of kidney function: Stage Description GFR(mL/min/1.73 m(2)) 1 Kidney damage with normal or decreased GFR 90 2 Kidney damage with mild decrease in GFR 60-89 3 Moderate decrease in GFR 30-59 4 Severe decrease in GFR 15-29 5 Kidney failure <15 (or dialysis) 23 Because ethnic data is not always readily available, this report includes an eGFR for both -Americans and non- Americans. The National Kidney Disease Education Program (NKDEP) does not endorse the use of the MDRD equation for patients that are not between the ages of 18 and 70, are , have extremes of body size, muscle mass, or nutritional status, or are non- or non-. According to the National Kidney Foundation, irrespective of diagnosis, the stage of the disease is based on the level of kidney function: Stage Description GFR(mL/min/1.73 m(2)) 1 Kidney damage with normal or decreased GFR 90 2 Kidney damage with mild decrease in GFR 60-89 3 Moderate decrease in GFR 30-59 4 Severe decrease in GFR 15-29 5 Kidney failure <15 (or dialysis) 24 Reference Range and Interpretation: TnI (ng/mL) Interpretation Less Than 0.03 ng/mL Not supportive of diagnosis of MN 0.03 - 0.50 ng/mL Indeterminate: suggest serial studies if clinically indicated. Greater than 0.5 ng/mL Consistent with diagnosis of MN 25 Leukocytosis with absolute lymphocytosis and monocytosis noted, favor reactive. Clinical correlation suggested. Reviewed by Dr. Munoz 26 Because ethnic data is not always readily available, this report includes an eGFR for both -Americans and non- Americans. The National Kidney Disease Education Program (NKDEP) does not endorse the use of the MDRD equation for patients that are not between the ages of 18 and 70, are , have extremes of body size, muscle mass, or nutritional status, or are non- or non-. According to the National Kidney Foundation, irrespective of diagnosis, the stage of the disease is based on the level of kidney function: Stage Description GFR(mL/min/1.73 m(2)) 1 Kidney damage with normal or decreased GFR 90 2 Kidney damage with mild decrease in GFR 60-89 3 Moderate decrease in GFR 30-59 4 Severe decrease in GFR 15-29 5 Kidney failure <15 (or dialysis) 27 SEE RESULT BELOW Name: LISA BUSTAMANTE: [address]: Adonis Byrd MD Acct: [id number] Unit: [id number] AGE: 44 Location: ENDO Re10/31/14 SEX: F Status: REG REF SPEC: [id number] YONATAN: 10/31/14-1111 [facility] DR: Adonis Byrd MD REQ: [id number] RECD: 10/31/14 STATUS: JAMI MURPHY DR: Raul Molina MD _ SOURCE: GAS ANTRUM SPDESC: ORDERED: Clotest Procedure Result Verified Site Clotest Final 11/01/14- 0836 ML Clotest Negative * ML - MAIN LAB ([facility]) . END OF REPORT * ML=Testing performed at Main Lab DEPARTMENT OF PATHOLOGY, [address] [place] [address] Manjeet Munoz M.D. Director [facility] # [id number] 28 SEE RESULT BELOW Name: LISA BUSTAMANTE : [address]: Adonis Byrd MD Acct: [id number] Unit: [id number] AGE: 44 Location: ENDO Re10/31/14 SEX: F Status: REG REF SPEC: [id number] YONATAN: 10/31/14-11[address] [facility] [address]: Adonis Byrd MD REQ: [id number] RECD: 10/31/147794 STATUS: REZA MURPHY DR: Raul Molina MD _ ORDERED: H PYLORI IMM ST, LEVEL IV An H. pylori immunostain, with appropriately reacting controls, is negative for Helicobacter organisms. Addendum Signed (signature on file) Cici Tineo MD 1340 FINAL DIAGNOSIS Stomach, antrum, biopsy: -- Antral-type gastric mucosa with marked reactive chemical gastropathy and moderate chronic gastritis; see comment. COMMENT: An H. pylori immunostain is pending and the results will be reported in an addendum. CLINICAL HISTORY Gastroesophageal reflux disease - second EGD POST-OPERATIVE DIAGNOSIS Larynx - narrow; esophagus - normal, EG 33-34 loose hiatus, 35-35.5 wide; stomach - patchy erythema in antrum, biopsied x2; duodenum - normal. Hiatal hernia, gastritis, gastroesophageal reflux disease (continue omeprazole), headaches GROSS DESCRIPTION The specimen is received in formalin labeled, Gastric Antrum Biopsy, and consists of two joyce irregular soft tissue fragments averaging 0.3 x 0.3 x 0.2 cm, which are submitted entirely in one cassette. Signed (signature on file) Cici Tineo MD 1047 END OF REPORT * ML=Testing performed at Main Lab DEPARTMENT OF PATHOLOGY, [address] [place] [address] Manjeet Munoz M.D. Director [facility] # [id number] 29 RESULTS VERIFIED BY REPEAT ANALYSIS 30 RESULTS VERIFIED BY REPEAT ANALYSIS 31 Because ethnic data is not always readily available, this report includes an eGFR for both -Americans and non- Americans. The National Kidney Disease Education Program (NKDEP) does not endorse the use of the MDRD equation for patients that are not between the ages of 18 and 70, are , have extremes of body size, muscle mass, or nutritional status, or are non- or non-. According to the National Kidney Foundation, irrespective of diagnosis, the stage of the disease is based on the level of kidney function: Stage Description GFR(mL/min/1.73 m(2)) 1 Kidney damage with normal or decreased GFR 90 2 Kidney damage with mild decrease in GFR 60-89 3 Moderate decrease in GFR 30-59 4 Severe decrease in GFR 15-29 5 Kidney failure <15 (or dialysis) 32 Reference Range and Interpretation: TnI (ng/mL) Interpretation Less Than 0.03 ng/mL Not supportive of diagnosis of [place] 0.03 - 0.50 ng/mL Indeterminate: suggest serial studies if clinically indicated. Greater than 0.5 ng/mL Consistent with diagnosis of [place] 33 Because ethnic data is not always readily available, this report includes an eGFR for both -Americans and non- Americans. The National Kidney Disease Education Program (NKDEP) does not endorse the use of the MDRD equation for patients that are not between the ages of 18 and 70, are , have extremes of body size, muscle mass, or nutritional status, or are non- or non-. According to the National Kidney Foundation, irrespective of diagnosis, the stage of the disease is based on the level of kidney function: Stage Description GFR(mL/min/1.73 m(2)) 1 Kidney damage with normal or decreased GFR 90 2 Kidney damage with mild decrease in GFR 60-89 3 Moderate decrease in GFR 30-59 4 Severe decrease in GFR 15-29 5 Kidney failure <15 (or dialysis) 34 Reference Range and Interpretation: TnI (ng/mL) Interpretation Less Than 0.03 ng/mL Not supportive of diagnosis of [place] 0.03 - 0.50 ng/mL Indeterminate: suggest serial studies if clinically indicated. Greater than 0.5 ng/mL Consistent with diagnosis of [place] 35 Because ethnic data is not always readily available, this report includes an eGFR for both -Americans and non- Americans. The National Kidney Disease Education Program (NKDEP) does not endorse the use of the MDRD equation for patients that are not between the ages of 18 and 70, are , have extremes of body size, muscle mass, or nutritional status, or are non- or non-. According to the National Kidney Foundation, irrespective of diagnosis, the stage of the disease is based on the level of kidney function: Stage Description GFR(mL/min/1.73 m(2)) 1 Kidney damage with normal or decreased GFR 90 2 Kidney damage with mild decrease in GFR 60-89 3 Moderate decrease in GFR 30-59 4 Severe decrease in GFR 15-29 5 Kidney failure <15 (or dialysis) 36 Potassium reference range changed effective 04/09/14 37 Because ethnic data is not always readily available, this report includes an eGFR for both -Americans and non- Americans. The National Kidney Disease Education Program (NKDEP) does not endorse the use of the MDRD equation for patients that are not between the ages of 18 and 70, are , have extremes of body size, muscle mass, or nutritional status, or are non- or non-. According to the National Kidney Foundation, irrespective of diagnosis, the stage of the disease is based on the level of kidney function: Stage Description GFR(mL/min/1.73 m(2)) 1 Kidney damage with normal or decreased GFR 90 2 Kidney damage with mild decrease in GFR 60-89 3 Moderate decrease in GFR 30-59 4 Severe decrease in GFR 15-29 5 Kidney failure <15 (or dialysis) 38 Because ethnic data is not always readily available, this report includes an eGFR for both -Americans and non- Americans. The National Kidney Disease Education Program (NKDEP) does not endorse the use of the MDRD equation for patients that are not between the ages of 18 and 70, are , have extremes of body size, muscle mass, or nutritional status, or are non- or non-. According to the National Kidney Foundation, irrespective of diagnosis, the stage of the disease is based on the level of kidney function: Stage Description GFR(mL/min/1.73 m(2)) 1 Kidney damage with normal or decreased GFR 90 2 Kidney damage with mild decrease in GFR 60-89 3 Moderate decrease in GFR 30-59 4 Severe decrease in GFR 15-29 5 Kidney failure <15 (or dialysis) 39 Acute inflammation: >10.00 40 Serologic response to B. burgdorferi infection is not detected, but cannot rule out early infection during which low or undetectable antibody levels to B. burgdorferi may be present. If clinically indicated, a new serum specimen should be submitted in 7-14 days. Test Performed by: [facility] [address] [address] [employer]: Michael Ramon III, M.D. 41 Because ethnic data is not always readily available, this report includes an eGFR for both -Americans and non- Americans. The National Kidney Disease Education Program (NKDEP) does not endorse the use of the MDRD equation for patients that are not between the ages of 18 and 70, are , have extremes of body size, muscle mass, or nutritional status, or are non- or non-. According to the National Kidney Foundation, irrespective of diagnosis, the stage of the disease is based on the level of kidney function: Stage Description GFR(mL/min/1.73 m(2)) 1 Kidney damage with normal or decreased GFR 90 2 Kidney damage with mild decrease in GFR 60-89 3 Moderate decrease in GFR 30-59 4 Severe decrease in GFR 15-29 5 Kidney failure <15 (or dialysis) 42 Acute inflammation: >10.00 43 Comment: . 44 Because ethnic data is not always readily available, this report includes an eGFR for both -Americans and non- Americans. The National Kidney Disease Education Program (NKDEP) does not endorse the use of the MDRD equation for patients that are not between the ages of 18 and 70, are , have extremes of body size, muscle mass, or nutritional status, or are non- or non-. According to the National Kidney Foundation, irrespective of diagnosis, the stage of the disease is based on the level of kidney function: Stage Description GFR(mL/min/1.73 m(2)) 1 Kidney damage with normal or decreased GFR 90 2 Kidney damage with mild decrease in GFR 60-89 3 Moderate decrease in GFR 30-59 4 Severe decrease in GFR 15-29 5 Kidney failure <15 (or dialysis) 45 Test Performed by: [address] [address] [employer]: Michael Ramon III, M.D. 46 Analyte Specific Reagent: This test was developed and its performance characteristics determined by [facility]. It has not been cleared or approved by the U.S. Food and Drug Administration. Test Performed by: [place] [address] [employer]: Michael Ramon III, M.D. 47 Analyte Specific Reagent: This test was developed and its performance characteristics determined by [facility]. It has not been cleared or approved by the U.S. Food and Drug Administration. 48 Analyte Specific Reagent: This test was developed and its performance characteristics determined by [facility]. It has not been cleared or approved by the U.S. Food and Drug Administration. Test Performed by: [place] [address] [employer]: Michael Ramon III, M.D. 49 Not diagnostic. Supplemental testing ordered by reflex. Test Performed by: [place] [address] [employer]: Michael Ramon III, M.D. 50 No bands detected 51 Specific serologic response to B. burgdorferi infection is not detected, but cannot rule out early infection during which low or undetectable antibody levels to B. burgdorferi may be present. If clinically indicated, a new serum specimen should be submitted in 7-14 days. CDC criteria require >=5 bands for IgG or >=2 bands for IgM for the Immunoblot to be considered positive. Bands (e.g.,p41) may be detected in patients without Lyme disease, and patterns not meeting the CDC criteria should be interpreted with caution. Immunoblot should be ordered only on specimens that are positive or equivocal by a FDA-licensed Lyme disease antibody screening test (e.g., EIA). Test Performed by: [place] [address] [employer]: Michael Ramon III, M.D. 52 Because ethnic data is not always readily available, this report includes an eGFR for both -Americans and non- Americans. The National Kidney Disease Education Program (NKDEP) does not endorse the use of the MDRD equation for patients that are not between the ages of 18 and 70, are , have extremes of body size, muscle mass, or nutritional status, or are non- or non-. According to the National Kidney Foundation, irrespective of diagnosis, the stage of the disease is based on the level of kidney function: Stage Description GFR(mL/min/1.73 m(2)) 1 Kidney damage with normal or decreased GFR 90 2 Kidney damage with mild decrease in GFR 60-89 3 Moderate decrease in GFR 30-59 4 Severe decrease in GFR 15-29 5 Kidney failure <15 (or dialysis) 53 Reference Range and Interpretation: TnI (ng/mL) Interpretation Less Than 0.03 ng/mL Not supportive of diagnosis of [place] 0.03 - 0.50 ng/mL Indeterminate: suggest serial studies if clinically indicated. Greater than 0.5 ng/mL Consistent with diagnosis of [place] 54 Low risk: <1.0 mg/L Average risk: 1.0-3.0 mg/L High risk: >3.0 mg/L Acute inflammation: >10.0 mg/L 55 Positive 56 Negative 57 RESULT: Results suggest past infection. Test Performed by: [place] [address] [employer]: Michael Ramon III, M.D. 58 >100 to <200 pg/mL: likely compensated congestive heart failure (CHF) 200 to 400 pg/mL: likely moderate CHF >400 pg/mL: likely moderate to severe CHF [facility] 59 Please note: The following may produce a false positive D Dimer test: - Rheumatoid factor greater than 60 IU/ml - Plasma hemoglobin greater than 0.05 gm/dl - Bilirubin greater than 50 mg/dl - Lipids greater than 1000 mg/dl - FDP greater than 20 ug/ml 60 RESULTS VERIFIED BY REPEAT ANALYSIS 61 Because ethnic data is not always readily available, this report includes an eGFR for both -Americans and non- Americans. The National Kidney Disease Education Program (NKDEP) does not endorse the use of the MDRD equation for patients that are not between the ages of 18 and 70, are , have extremes of body size, muscle mass, or nutritional status, or are non- or non-. According to the National Kidney Foundation, irrespective of diagnosis, the stage of the disease is based on the level of kidney function: Stage Description GFR(mL/min/1.73 m(2)) 1 Kidney damage with normal or decreased GFR 90 2 Kidney damage with mild decrease in GFR 60-89 3 Moderate decrease in GFR 30-59 4 Severe decrease in GFR 15-29 5 Kidney failure <15 (or dialysis) 62 Because ethnic data is not always readily available, this report includes an eGFR for both -Americans and non- Americans. The National Kidney Disease Education Program (NKDEP) does not endorse the use of the MDRD equation for patients that are not between the ages of 18 and 70, are , have extremes of body size, muscle mass, or nutritional status, or are non- or non-. According to the National Kidney Foundation, irrespective of diagnosis, the stage of the disease is based on the level of kidney function: Stage Description GFR(mL/min/1.73 m(2)) 1 Kidney damage with normal or decreased GFR 90 2 Kidney damage with mild decrease in GFR 60-89 3 Moderate decrease in GFR 30-59 4 Severe decrease in GFR 15-29 5 Kidney failure <15 (or dialysis) 63 Serologic response to B. burgdorferi infection is not detected, but cannot rule out early infection during which low or undetectable antibody levels to B. burgdorferi may be present. If clinically indicated, a new serum specimen should be submitted in 7-14 days. Test Performed by: [place] [address] [employer]: Michael Ramon III, M.D. 64 Because ethnic data is not always readily available, this report includes an eGFR for both -Americans and non- Americans. The National Kidney Disease Education Program (NKDEP) does not endorse the use of the MDRD equation for patients that are not between the ages of 18 and 70, are , have extremes of body size, muscle mass, or nutritional status, or are non- or non-. According to the National Kidney Foundation, irrespective of diagnosis, the stage of the disease is based on the level of kidney function: Stage Description GFR(mL/min/1.73 m(2)) 1 Kidney damage with normal or decreased GFR 90 2 Kidney damage with mild decrease in GFR 60-89 3 Moderate decrease in GFR 30-59 4 Severe decrease in GFR 15-29 5 Kidney failure <15 (or dialysis) 65 Reference Range and Interpretation: TnI (ng/mL) Interpretation Less Than 0.06 ng/mL Not supportive of diagnosis of [place] 0.06 - 0.50 ng/mL Indeterminate: suggest serial studies if clinically indicated. Greater than 0.5 ng/mL Consistent with diagnosis of [place] 66 HDL Interpretation: Undesirable: High Risk: Less than 40 mg/dL Desirable: Low Risk: Greater than 60 mg/dL 67 LDL Interpretation: Low Risk Optimal Level: LDL Less than 100 mg/dL Near or Above Optimal: LDL 100-129 mg/dL Borderline High Risk: LDL 130-159 mg/dL High Risk: LDL 160-189 mg/dL Very High Risk: LDL Greater than 189 mg/dL 68 Because ethnic data is not always readily available, this report includes an eGFR for both -Americans and non- Americans. The National Kidney Disease Education Program (NKDEP) does not endorse the use of the MDRD equation for patients that are not between the ages of 18 and 70, are , have extremes of body size, muscle mass, or nutritional status, or are non- or non-. According to the National Kidney Foundation, irrespective of diagnosis, the stage of the disease is based on the level of kidney function: Stage Description GFR(mL/min/1.73 m(2)) 1 Kidney damage with normal or decreased GFR 90 2 Kidney damage with mild decrease in GFR 60-89 3 Moderate decrease in GFR 30-59 4 Severe decrease in GFR 15-29 5 Kidney failure <15 (or dialysis) 69 -- REFERENCE VALUE -- <20.0 (Negative) Test Performed by: [place] [address] [employer]: Michael Ramon III, M.D. 70 -- REFERENCE VALUE -- Not Applicable 71 RESULT: HLA-B27 antigen was not detected. Method: Flow Cytometry Test Performed by: [place] [address] [employer]: Michael Ramon III, M.D. 72 Test Performed by: [place] [address] [employer]: Michael Ramon III, M.D. 73 Test Performed by: [address] [address] [employer]: Michael Ramon III, M.D. 74 Because ethnic data is not always readily available, this report includes an eGFR for both -Americans and non- Americans. The National Kidney Disease Education Program (NKDEP) does not endorse the use of the MDRD equation for patients that are not between the ages of 18 and 70, are , have extremes of body size, muscle mass, or nutritional status, or are non- or non-. According to the National Kidney Foundation, irrespective of diagnosis, the stage of the disease is based on the level of kidney function: Stage Description GFR(mL/min/1.73 m(2)) 1 Kidney damage with normal or decreased GFR 90 2 Kidney damage with mild decrease in GFR 60-89 3 Moderate decrease in GFR 30-59 4 Severe decrease in GFR 15-29 5 Kidney failure <15 (or dialysis) 75 Reference Range and Interpretation: TnI (ng/ml) Interpretation Less Than 0.06 ng/mL Not supportive of diagnosis of [place] 0.06 - 0.50 ng/ml Indeterminate: suggest serial studies if clinically indicated. Greater than 0.5 ng/mL Consistent with diagnosis of [place] Procedures Date Code Description Status 09/21/2018 75786 Brief Emotional/Behav Assessment W/ Scoring Doc Per Completed Standard Inst 04/06/2017 [id number] Colonoscopy Completed 04/02/2017 [id number] Colonoscopy Completed 12/11/2016 [id number] Mammogram Completed 12/08/2016 53821 Electrocardiogram Complete Completed 08/14/2015 36167 Pulse Oximetry Completed 11/08/2014 [id number] Mammogram Completed 2014 39890 Pulse Oximetry Completed 09/13/2013 92135 Pulse Oximetry Completed 08/01/2013 52361 Pulse Oximetry Completed 07/28/2013 77623 Pulse Oximetry Completed 06/08/2011 [id number] Colonoscopy Completed Encounters Type Date Location Provider Dx Diagnosis Office Visit 10/19/2018 Main Office Cici Franco, K30 Functional dyspepsia 12:00p [employer] F41.9 Anxiety disorder, unspecified R21 Rash and other nonspecific skin eruption F41.0 Panic disorder [episodic paroxysmal anxiety] F34.1 Dysthymic disorder G47.00 Insomnia, unspecified M54.5 Low back pain E78.2 Mixed hyperlipidemia Office Visit 09/21/2018 12:00p Main Office Cici Franco, K30 Functional [employer] dyspepsia R21 Rash and other nonspecific skin eruption F41.9 Anxiety disorder, unspecified F41.0 Panic disorder [episodic paroxysmal anxiety] F34.1 Dysthymic disorder G47.00 Insomnia, unspecified Office Visit 08/31/2018 11:30a [facility] Raul Truong R31.29 Other microscopic Deuce Molina hematuria Z88.1 Allergy status to other antibiotic agents status R19.7 Diarrhea, unspecified Office Visit 08/19/2018 1:15p Main Office Leela Parry, Z88.1 Allergy status to [employer] other antibiotic agents status R19.7 Diarrhea, unspecified Office Visit 03/01/2018 3:50p [facility] Raul Truong R51 Headache Deuce Molina Office Visit 12/08/2016 1:20p [facility] Office Raul Truong Z00.01 Encounter for Deuce Molina general adult medical exam w abnormal findings R07.9 Chest pain, unspecified R19.4 Change in bowel habit K21.0 Gastro-esophageal reflux disease with esophagitis F41.1 Generalized anxiety disorder L40.59 Other psoriatic arthropathy Z12.31 Encntr screen mammogram for malignant neoplasm of breast Z71.6 Tobacco abuse counseling Z72.0 Tobacco use R20.8 Other disturbances of skin sensation F17.210 Nicotine dependence, cigarettes, uncomplicated Office Visit 04/14/2016 3:30p [facility] Office Raul Truong N39.0 Urinary tract Deuce Molina infection, site not specified Office Visit 03/28/2016 4:30p Main Office Rosa Andrade, N39.0 Urinary tract [employer] infection, site not specified K21.9 Gastro-esophageal reflux disease without esophagitis Office Visit 08/29/2015 4:20p [facility] Office Raul Truong T88.6xxA Edgar Molina M.D. reaction due to advrs eff drug/med prop admin, init E87.6 Hypokalemia D72.829 Elevated white blood cell count, unspecified Office Visit 08/14/2015 10:10a Pat Tayloryd A. J01.90 Acute sinusitis, Office Deuce Molina unspecified Office Visit 05/17/2015 7:45p Main Office Raul Truong E78.2 Mixed hyperlipidemia Deuce Molina L40.59 Other psoriatic arthropathy K21.9 Gastro-esophageal reflux disease without esophagitis F41.1 Generalized anxiety disorder Z23 Encounter for immunization S83.511D Sprain of anterior cruciate ligament of right knee, subs R87.811 Vaginal high risk HPV Dna test positive Office Visit 08/09/2014 9:15a [facility] Angela Agrawal, 461.9 Sinusitis Acute Afnp-C Unspec Office Visit 2014 10:30a [facility] Raul Truong 466.0 Bronchitis Acute Deuce Molina 300.02 Anxiety Disorder Generalized Office Visit 09/13/2013 11:10a [facility] Office Raul Truong 461.9 Sinusitis Acute Deuce Molina Unspec Office Visit 08/10/2013 11:10a [facility] Office Raul Truong 719.88 Joint Disorder Deuce Molina Other Spec Sites Office Visit 08/03/2013 11:10a [facility] Office Raul Truong 079.99 Viral Infection Deuce Molina Unspec 305.1 Tobacco Use Disorder Office Visit 08/01/2013 7:30p Main Office Neisha Louie NP 780.79 Malaise And Fatigue Other 729.1 Myalgia & Myositis Unspec Office Visit 07/28/2013 4:30p Main Office Raul Molina, 461.9 Sinusitis Acute Deuce Unspec 466.0 Bronchitis Acute Office Visit 12/27/2012 5:30p Main Office Neisha Louie, 346.02 Migraine [employer] W/Aura,W/Out Mention Of Intractable Migraine Office Visit 12/14/2012 11:30a [facility] Raul Truong 473.8 Sinusitis Chronic Deuce Molina Other Office Visit 10/25/2012 10:50a [facility] Raul Truong 781.94 Facial Weakness Deuce Molina 696.0 Psoriatic Arthropathy 296.30 Depressive Disorder Major Recurrent Unspec 535.40 Gastritis Other Spec W/O Hemorrhage Office Visit 08/16/2012 3:00p [facility] Raul Truong 995.0 Shock Anaphylactic Deuce Molina Other Not Elsewhere Class Office Visit 05/06/2012 1:40p Main Office Raul Truong 535.40 Gastritis Other Deuce Molina Spec W/O Hemorrhage 696.1 Psoriasis Other 296.30 Depressive Disorder Major Recurrent Unspec 300.02 Anxiety Disorder Generalized Plan of Treatment Future Appointment(s):12/27/2018 8:30 am - Raul Molina M.D. at [facility]01/03/2019 9:10 am - Raul Molina M.D. at [facility]11/19/2018 - Cici Franco, FNPK30 Functional kmiqbeqvaI29.5 Low back painF34.1 Dysthymic eefgesgdK92.9 Anxiety disorder, unspecifiedNew Medication:Paroxetine HCL 20 mg - 1 by mouth every dayF41.0 Panic disorder [episodic paroxysmal anxiety]R21 Rash and other nonspecific skin zaxgprlkD79.00 Insomnia, unspecifiedNew Medication:Lorazepam 0.5 mg - 1 by mouth twice a day as needed snhibpvQ47.2 Mixed gmtdehanhtgkvjB62.11 Right upper quadrant pain
--- OUTSIDE RECORDS SUMMARY | 2018-11-22 14:15 | XMS REPORT | Continuity of Care Document ---
:1970 External Reference #:[id number] Author Name Elliot Méndez DO Address [address] [place] [address] [place] [address] Care Team Providers Name Role Phone Raul Molina MD Care Team Information [employer] Unavailable Raul Molina MD Primary Care Physician Unavailable Payers Date Identification Numbers Payment Provider Subscriber Policy Number: [id number] Tushar Longo PayID: [id number] [address] [place] [address] Problems Active Problems Provider Date Psoriasis with arthropathy Raul Molina MD Onset: 10/11/2014 Note: started days after appendectomy Dr Bethea and staph infection initially suspected; sees Dr Burgos; feet and knees; was on Accutane like med; then methotrexate 2010 to 2012; Hyperlipidemia Raul Molina MD Onset: 10/11/2014 Note: says fenofibrate her only drug Rx; Gastroesophageal reflux disease Raul Molina MD Onset: 10/11/2014 Insomnia Adonis Byrd MD Onset: 10/21/2007 Anxiety disorder Adonis Byrd MD Onset: 10/20/2002 Note: Zoloft for ten yrs then off two yrs till father's Migraine with typical aura Adonis Byrd MD Onset: 10/20/1988 Note: uses metoclopromide PRN; sees Dr Troncoso since 2012 ; then August 2014 ; father had syncope with migraines [place] lesion of lung Adonis Byrd MD Onset: 08/01/2013 Note: had f/u CT 10/17/13 and stable; Family History Date Family Member(s) Observation Comments Father due to Aneurysm () - Thoracic at 68 Onset: (1984) Mother Diabetes insulin since 1999 First Brother Gastroesophageal Reflux Disease 5 yrs older (GERD) Social History Type Date Description Comments Sex Unknown Tobacco Use Start: Unknown Light tobacco smoker (10 or fewer cigarettes/day) Smoking Status Reviewed: 11/15/18 Light tobacco smoker (10 or fewer cigarettes/day) Allergies, Adverse Reactions, Alerts Active Allergies Reaction Severity Comments Date Solifenacin hives, throat closing Severe 08/29/2015 Enbrel psorasis worse 08/16/2012 Amoxicillin Anaphylaxis 05/17/2015 Penicillin diarrhea as child 05/06/2012 Stelara 05/17/2015 Contrast Dye 04/13/2018 Medications Active Medications SIG Qnty Indications Ordering Provider Date Omeprazole 1 tablet by mouth 60caps K44.9 Elliot Méndez, DO 11/15/2018 40mg twice a day Capsules DR before meals Epipen 2-Johnson as directed for Raul Lala MD 08/16/2012 allergy exposure 0.3mg/0.3ML Solution Auto-Inject Tylenol prn Unknown 325mg Tablets Trazodone HCL Take One Tablet 30tabs Maryann Lemons NP 50mg By Mouth AT Tablets Bedtime MDD 1 MDD 1 MDD 1 Ranitidine HCL 1 by mouth at Unknown 300mg night. Capsules Sucralfate 1 tablet by mouth Unknown 1gm Tablets on an empty stomach-4 times daily Paroxetine HCL Daily Unknown 10mg Tablets History Medications Dexilant 1 by mouth every Elliot Méndez DO 11/15/2018 - 60mg Capsules day 11/15/2018 Dexilant 1 by mouth every 30caps Elliot Méndez DO 05/20/2018 - 60mg Capsules day 11/15/2018 Ranitidine HCL 1 po qd 90caps Raul Molina MD 03/23/2018 - 300mg 05/20/2018 Capsules Orphenadrine Citrate take one tablet 60tabs R51 Raul Molina MD 2017 - ER by mouth twice a 11/15/2018 100mg Tablets ER day as needed for 12HR headache/neckache Fluoxetine HCL 2 by mouth every 60caps Raul Molina MD 05/14/2017 - 40mg day 11/15/2018 Capsules Rosuvastatin Calcium 1 by mouth every 90tabs Raul Molina MD 01/06/2017 - day 11/15/2018 5mg Tablets Ranitidine HCL 1 tablet at at 30caps Adonis Byrd 11/15/2014 - 150mg bedtime 05/20/2018 Capsules Fenofibrate 1 by mouth every 90caps Raul Molina MD 10/11/2014 - Micronized day 11/15/2018 67mg Capsules Eszopiclone 1 by mouth every 30tabs Raul Molina MD 10/11/2014 - 3mg Tablets at bedtime 11/15/2018 Buspirone HCL take one tablet 60tabs Raul Molina MD 2014 - 5mg by mouth twice a 11/15/2018 Tablets day Colcrys [address] 90tabs Unknown 01/16/2014 - 0.6mg Tablets Tangoren 11/15/2018 Zoloft 4 po qd since 60tabs Raul Molina MD 11/07/2008 - 50mg Tablets 201211/15/2018 Clonazepam 1 po qd 30tabs Raul Molina MD - 0.5mg 10/20/2014 Tablets Omeprazole Take One Capsule 180caps Raul Molina MD - 40mg By Mouth Twice 05/20/[address] Zhong Vital Signs Date Vital Result Comment 11/15/2018 9:32am Height 63 inches 5'3" Weight 187.00 lb BMI (Body Mass Index) 33.1 kg/m2 04/13/2018 1:33pm Height 63 inches 5'3" Weight 195.00 lb BP Systolic 128 mmHg BP Diastolic 86 mmHg Heart Rate 78 /min BMI (Body Mass Index) 34.5 kg/m2 11/15/2014 2:05pm Height 63 inches 5'3" Weight 182.00 lb BP Systolic 140 mmHg BP Diastolic 70 mmHg Heart Rate 72 /min BMI (Body Mass Index) 32.2 kg/m2 10/20/2014 10:20am Height 63 inches 5'3" Weight 180.00 lb BP Systolic 142 mmHg BP Diastolic 90 mmHg Heart Rate 78 /min BMI (Body Mass Index) 31.9 kg/m2 Results Test Date Facility Test Result H/L Range Note Laboratory test 05/04/20 [facility] Surgical Pathology SEE RESULT 1, 2 finding 18 BELOW Celiac Panel! 03/04/20 [facility] Endomysial AB QN <pending> 18 Serum Transglutaminase 03/04/20 [facility] Transglutaminase AB <pending> Iga/Igg 18 Iga Transglutaminase AB Igg <pending> Gliadin Igg/Iga AB 03/04/2018 [facility] Gliadin Iga <pending> Gliadin Igg <pending> CMP(!) 02/25/2018 [facility] Sodium(!) <pending> Potassium(!) <pending> Chloride Serum/Plasma(!) <pending> Carbon Dioxide Ser/Plasm(!) <pending> BUN - Urea Nitrogen(!) <pending> Calcium Ser/Plasma Mass/Vol(!) <pending> Creatinine Serum Mass/Vol(!) <pending> Glucose Serum(!) <pending> BUN/Creatinine Ratio(!) <pending> Albumin Serum/Plasma(!) <pending> Alkaline Phosphatase(!) <pending> Bilirubin Total Mass/Vol(!) <pending> Ast - Sgot <pending> Alt - SGPT <pending> Protein Total <pending> Laboratory test 02/25/2018 [facility] C-Reative Protein <pending> finding CBC No Diff 02/25/2018 [facility] Hematocrit <pending> Hemoglobin Blood <pending> Platelet Count Blood Auto CNT <pending> RBC Red Blood Count <pending> RDW <pending> White Blood Count Ser Auto CNT <pending> MCH (Corpuscular Hemoglobin) <pending> MCHC (Corpuscular Hemog Conc) <pending> MPV <pending> MCV (Corpuscular Volume) <pending> Laboratory test 02/25/2018 N2N/CCD Import C Reactive Protein 7.17 mg/L < 8.01 finding Hematocrit 40 % 35-47 Hemoglobin 13.7 g/dL 12.0-16.0 Mean Corpuscular HGB Conc 34 g/dL 31-36 Mean Corpuscular Hemoglobin 31 pg 27-31 Mean Corpuscular Volume 90 fL 80-97 Mean Platelet Volume 7.8 um3 7.4-10.4 Platelet Count 217 10^3/uL 150-450 Red Blood Count 4.42 10^6/uL 4.00-5.40 Red Cell Distribution Width 13 % 10.5-15 White Blood Count 8.3 10^3/uL 3.5-10.8 Comp Metabolic Panel 02/25/2018 N2N/CCD Import Albumin 3.9 g/dL 3.2-5.2 Albumin/Globulin Ratio 1.4 1 1-3 Alkaline Phosphatase 82 U/L 34-104 Alt 22 U/L 7-52 Anion Gap 7 mmol/L 2-11 Ast 16 U/L 13-39 BUN/Creatinine Ratio 15.8 1 8-20 Blood Urea Nitrogen 12 mg/dL 6-24 Calcium 9.2 mg/dL 8.6-10.3 Chloride 107 mmol/L 101-111 Co2 Carbon Dioxide 25 mmol/L 22-32 Creatinine 0.76 mg/dL 0.51-0.95 Egfr 99.6 1 >60 3 Egfr Non- 82.3 1 >60 Globulin 2.7 g/dL 2-4 Glucose 84 mg/dL 70-100 Potassium 3.9 mmol/L 3.5-5.0 Sodium 139 mmol/L 135-145 Total Bilirubin 0.40 mg/dL 0.2-1.0 Total Protein 6.6 g/dL 6.4-8.9 Xray 02/25/2018 [facility] Radiology CT, Head/Brain w/o <pending> contrast CBC Auto Diff 12/29/2017 N2N/CCD Import Abs Basophils 0.1 10^3/uL 0-0.2 Abs Eosinophils 0.4 10^3/uL 0-0.6 Abs Lymphocytes 2.7 10^3/uL 1.0-4.8 Abs Monocytes 0.7 10^3/uL 0-0.8 Abs Neutrophils 7.7 10^3/uL 1.5-7.7 Abs Nucleated RBC 0 10^3/uL Basophil % 0.9 % 0-2 Eosinophil % 3.3 % 0-6 Granulocyte % 66.4 % 38-83 Hematocrit 37 % 35-47 Hemoglobin 12.9 g/dL 12.0-16.0 Lymphocyte % 23.2 % Low 25-47 Mean Corpuscular HGB Conc 35 g/dL 31-36 Mean Corpuscular Hemoglobin 31 pg 27-31 Mean Corpuscular Volume 90 fL 80-97 Mean Platelet Volume 7.3 um3 Low 7.4-10.4 Monocyte % 6.2 % 0-7 Nucleated Red Blood Cells % 0 1 Platelet Count 236 10^3/uL 150-450 Red Blood Count 4.13 10^6/uL 4.00-5.40 Red Cell Distribution Width 13 % 10.5-15 White Blood Count 11.7 10^3/uL High 3.5-10.8 Comp Metabolic Panel 12/29/2017 N2N/CCD Import Albumin 3.8 g/dL 3.2-5.2 Albumin/Globulin Ratio 1.4 1 1-3 Alkaline Phosphatase 74 U/L 34-104 Alt 23 U/L 7-52 Anion Gap 8 mmol/L 2-11 Ast 17 U/L 13-39 BUN/Creatinine Ratio 13.6 1 8-20 Blood Urea Nitrogen 11 mg/dL 6-24 Calcium 9.4 mg/dL 8.6-10.3 Chloride 106 mmol/L 101-111 Co2 Carbon Dioxide 24 mmol/L 22-32 Creatinine 0.81 mg/dL 0.51-0.95 Egfr 92.5 1 >60 4 Egfr Non- 76.5 1 >60 Globulin 2.8 g/dL 2-4 Glucose 82 mg/dL 70-100 Potassium 4.0 mmol/L 3.5-5.0 Sodium 138 mmol/L 135-145 Total Bilirubin 0.40 mg/dL 0.2-1.0 Total Protein 6.6 g/dL 6.4-8.9 Laboratory test 10/31/2014 [facility] Clotest SEE RESULT 5 finding BELOW Laboratory test 10/31/2014 [facility] Surgical SEE RESULT 6 finding Interface Order BELOW Laboratory test 10/10/2014 N2N/CCD Import Gran # 3.5 x10^3/UL 1.5-7.2 finding Gran % 52.3 % 42.2-75.2 HCT 43 % 36-50 HGB 14.7 g/dL 12.1-17.2 Lymph % 43.1 % 20.5-51.1 Lymph# 2.8 x10^3/UL 0.7-4.9 MCH 32.3 pg 27.6-33.3 MCHC 34.0 g/dL 33.0-35.5 MCV 95.0 fL 82.2-97.4 MPV 6.9 fL Low 7.4-10.4 [place]# 0.3 x10^3/UL 0.1-0.9 [place]% 4.6 % 1.7-9.3 PLT 243 x10^3/UL 150-400 RBC 4.54 x10^6/UL 3.90-5.70 RDW 13.1 % 11.6-13.7 WBC 6.6 x10^3/UL 3.6-9.6 Comprehensive Metabolic Prof 10/10/2014 N2N/CCD Import A/G Ratio 1.7 CALC 0.6-2.3 Albumin 4.3 g/dL 3.8-5.5 Alk. Phosphatase 58 U/L 30-110 Alt (SGPT) 73 U/L High 7-35 7 Ast (Sgot) 36 U/L High 5-34 8 BUN 17 mg/dL 6-26 BUN/Creat Ratio 21.3 CALC 8.0-36.0 Calcium 10.0 mg/dL 8.6-10.2 Carbon Dioxide 25 mEq/L 21-32 Chloride 101 mEq/L 94-112 Creatinine 0.8 mg/dL 0.6-1.4 Globulin 2.5 g/dL 2.0-4.8 Glucose 79 mg/dL 70-105 Potassium 3.8 mEq/L 3.6-5.5 Sodium 138 mEq/L 134-149 Total Bilirubin 0.5 mg/dL 0.2-1.3 Total Protein 6.8 g/dL 6.4-8.3 Lipid Profile 10/10/2014 N2N/CCD Import Cholesterol 250 mg/dL High 120- 200 HDL Cholesterol 52 mg/dL 30-85 HDL Risk Factor 4.8 CALC High 0.0-4.4 LDL (Calculated) 167 CALC High 0-129 Triglycerides 156 mg/dL 30-200 VLDL Cholesterol 31 mg/dL 0-50 CBC W/Auto 08/15/2014 [facility] White Blood <pending> Differential(!) Count Ser Auto CNT RBC Red Blood Count <pending> Hemoglobin Blood <pending> Hematocrit <pending> MCV (Corpuscular Volume) <pending> MCH (Corpuscular Hemoglobin) <pending> MCHC (Corpuscular Hemog Conc) <pending> RDW <pending> Platelet Count Blood Auto CNT <pending> MPV <pending> Lymph% <pending> [place]% <pending> Neutrophil % <pending> Absolute Lymphocytes <pending> Absolute Monocytes <pending> Absolute Neutrophils <pending> CMP(!) 08/15/2014 [facility] Sodium(!) <pending> Potassium(!) <pending> Chloride Serum/Plasma(!) <pending> Carbon Dioxide Ser/Plasm(!) <pending> BUN - Urea Nitrogen(!) <pending> Calcium Ser/Plasma Mass/Vol(!) <pending> Creatinine Serum Mass/Vol(!) <pending> Glucose Serum(!) <pending> Uric Acid Ser/Plas Mass/Vol(!) <pending> BUN/Creatinine Ratio(!) <pending> Albumin Serum/Plasma(!) <pending> Alkaline Phosphatase(!) <pending> Bilirubin Total Mass/Vol(!) <pending> Ast - Sgot <pending> Alt - SGPT <pending> Protein Total <pending> Xray 07/19/2014 [facility] Radiology US Gall Bladder <pending> Xray 07/19/2014 [facility] Radiology Chest Ap Portable <pending> Xray 10/17/2013 [facility] Radiology CT Chest W <pending> 1 [id number] 2 SEE RESULT BELOW Name: CRYSTAL LONGO : [address]: Elliot Méndez DO Acct: [id number] Unit: [id number] AGE: 47 Location: [facility]OCEC Re05/04/18 SEX: F Status: DEP REF SPEC: [id number] YONATAN: 05/04/18-[address]: Elliot Méndez DO REQ: [id number] RECD: 05/04/186235 STATUS: REZA MURPHY DR: Raul Molina MD _ ORDERED: LEVEL 4/2 COMMENTS: [id number] FINAL DIAGNOSIS 1. Stomach, biopsy: -- Fundic [...] 1114 END OF REPORT DEPARTMENT OF PATHOLOGY, [address] [place] [address] Manjeet Munoz M.D. Director [facility] # [id number] SEE RESULT BELOW Name: CRYSTAL LONGO : [address]: Elliot Méndez DO Acct: [id number] Unit: [id number] AGE: 47 Location: [facility] Re05/04/18 SEX: F Status: DEP REF SPEC: [id number] YONATAN: 05/04/[address]: Elliot Méndez DO REQ: [id number] RECD: 05/04/18 STATUS: REZA MURPHY DR: Raul Molina MD _ ORDERED: LEVEL 4/2 COMMENTS: [id number] FINAL DIAGNOSIS 1. Stomach, biopsy: -- Fundic [...] 1114 END OF REPORT DEPARTMENT OF PATHOLOGY, [address] [place] [address] Manjeet Munoz M.D. Director [facility] # [id number] 3 Because ethnic data is not always readily [...] 15-29 5 Kidney failure <15 (or dialysis) 4 Because ethnic data is not always [...] 5 Kidney failure <15 (or dialysis) 5 SEE RESULT BELOW Name: CRYSTAL LONGO : [address]: Adonis Byrd MD Acct: [id number] Unit: [id number] AGE: 44 Location: ENDO Re10/31/14 SEX: F Status: REG REF SPEC: [id number] YONATAN: 10/31/14-[address] [facility] [address]: Adonis Byrd MD REQ: [id number] RECD: 10/31/14-1144 STATUS: COMP [facility] DR: Raul Molina MD _ SOURCE: GAS ANTRUM SPDESC: ORDERED: Clotest Procedure Result Verified Site Clotest Final 11/01/14835 ML Clotest Negative * ML - [facility] ([facility]) . END OF REPORT * ML=Testing performed at Main Lab DEPARTMENT OF PATHOLOGY, [address] [place] [address] Manjeet Munoz M.D. Director [facility] # [id number] SEE RESULT BELOW Name: CRYSTAL LONGO : [address]: Adonis Byrd MD Acct: [id number] Unit: [id number] AGE: 44 Location: ENDO Re10/31/14 SEX: F Status: REG REF SPEC: [id number] YONATAN: 10/31/14-[address] [facility] [address]: Adonis Byrd MD REQ: [id number] RECD: 10/31/14114 STATUS: JAMI MURPHY DR: Raul Molina MD _ SOURCE: GAS ANTRUM SPDES: ORDERED: Clotest Procedure Result Verified Site Clotest Final 11/01/14- 0836 ML Clotest Negative * ML - [facility] LAB ([facility]) . END OF REPORT * ML=Testing performed at Main Lab DEPARTMENT OF PATHOLOGY, [address] [place] [address] Manjeet Munoz M.D. Director [facility] # [id number] SEE RESULT BELOW Name: CRYSTAL LONGO : [address]: Adonis Byrd MD Acct: [id number] Unit: [id number] AGE: 44 Location: ENDO Re10/31/14 SEX: F Status: REG REF SPEC: [id number] YONATAN: 10/31/14-[address] [facility] [address]: Adonis Byrd MD REQ: [id number] RECD: 10/31/145826 STATUS: REZA MURPHY DR: Raul Molina MD _ ORDERED: LEVEL IV FINAL DIAGNOSIS Stomach, antrum, biopsy: -- Antral-type [...] performed at Main Lab DEPARTMENT OF PATHOLOGY, [address] [place] [address] Manjeet Munoz M.D. Director [facility] # [id number] SEE RESULT BELOW Name: CRYSTAL LONGO : [address]: Adonis Byrd MD Acct: [id number] Unit: [id number] AGE: 44 Location: ENDO Re10/31/14 SEX: F Status: REG REF SPEC: [id number] YONATAN: 10/31/14-[address] [facility] [address]: Adonis Byrd MD REQ: [id number] RECD: 10/31/147523 STATUS: REZA MURPHY DR: Raul Molina MD _ ORDERED: LEVEL IV FINAL DIAGNOSIS Stomach, antrum, biopsy: -- Antral-type [...] performed at Main Lab DEPARTMENT OF PATHOLOGY, [address] [place] [address] Manjeet Munoz M.D. Director [facility] # [id number] SEE RESULT BELOW Name: CRYSTAL LONGO : [address]: Adonis Byrd MD Acct: [id number] Unit: [id number] AGE: 44 Location: ENDO Re10/31/14 SEX: F Status: REG REF SPEC: [id number] YONATAN: 10/31/14-[address]: Adonis Byrd MD REQ: [id number] RECD: 10/31/14 STATUS: REZA MURPHY DR: Raul Molina MD [...] performed at Main Lab DEPARTMENT OF PATHOLOGY, [address] [place] [address] Manjeet Munoz M.D. Director [facility] # [id number] SEE RESULT BELOW Name: CRYSTAL LONGO : [address]: Adonis Byrd MD Acct: [id number] Unit: [id number] AGE: 44 Location: ENDO Re10/31/14 SEX: F Status: REG REF SPEC: [id number] YNOATAN: 10/31/14-[address] [facility] [address]: Adonis Byrd MD REQ: [id number] RECD: 10/31/142 STATUS: REZA MURPHY DR: Raul Molina MD [...] in one cassette. Signed (signature on file) Daniel Tineo MD 1047 END OF REPORT * ML=Testing performed at Main Lab DEPARTMENT OF PATHOLOGY, [address] [place] [address] Manjeet Munoz M.D. Director [facility] # [id number] RESULTS VERIFIED BY REPEAT ANALYSIS 8 RESULTS VERIFIED BY REPEAT ANALYSIS Procedures Date Code Description Status 05/04/2018 45509 Moderate Sedation Services; Same Phys Each Additional 15 Completed Mins 05/04/2018 70811 Moderate Sedation Services; Same Phys Intl 15 Mins; PT >=5 Completed Years 05/04/2018 55426 EGD+Biopsy Single Or Multiple Completed 10/31/2014 93790 EGD+Biopsy Single Or Multiple Completed Encounters Type Date Location Provider Dx Diagnosis Office Visit 04/13/2018 Gastroenterology Elliot Méndez K21.9 Gastro- esophageal 1:30p [facility] [place] reflux disease without esophagitis R13.10 Dysphagia, unspecified K44.9 Diaphragmatic hernia without obstruction or gangrene R19.7 Diarrhea, unspecified R19.5 Other fecal abnormalities Office Visit 11/15/2014 Gastroenterology Adonis Colón 553.3 Hernia 2:[facility] Byrd MD Diaphragmatic 530.81 Esophageal Reflux 564.1 Irritable Bowel Syndrome Office Visit 10/20/2014 Gastroenterology Adonis Colón 530.81 Esophageal 10:15a [facility] Tara Byrd MD Reflux 564.1 Irritable Bowel Syndrome Plan of Treatment 11/15/2018 - Elliot Méndez DOK21.0 Gastro-esophageal reflux disease with tujjtyjcoiaR98.13 Epigastric painK44.9 Diaphragmatic hernia without obstruction or gangreneNew Medication:Omeprazole 40 mg - 1 tablet by mouth twice a day before meals
[2018-11-22] MEDS ORDERED: methylPREDNISolone 125 MG* 2 ML VIAL IV ONE (14:57)
[2018-11-22] MEDS ORDERED: Famotidine IV* 10 MG/ML 2 ML (20 mg) IV SLOW PU ONE (14:57)
[2018-11-22] MEDS ORDERED: diPHENhydraMINE IV* 50 MG/ML 1 ml VIAL (BENADRYL) IV ONE (14:57)
--- NOTE | 2018-11-22 15:10 | ED ---
Allergic Reaction/Systemic - HPI Summary HPI Summary: 48 year-old female presents with potential allergic reaction today. She got botox for the first time today. She states she's felt itchiness developing a couple hours after starting at the site and then moving down to her chest and back. She states feels like her throat is closing up. She also admits to headache. She got the botox for migraines. Has history of migraines. She states she has multiple allergic reactions and this is how they start. She hasn 't taken anything for her symptoms. - History of Current Complaint Chief Complaint: EDAllergicReaction Time Seen by Provider: 11/22/18 14:50 Hx Last Menstrual Period: hysterectomy Pain Intensity: 9 - Allergies/Home Medications Allergies/Adverse Reactions: Allergies Allergy/AdvReac Type Severity Reaction Status Date / Time etanercept [From Enbrel] Allergy worsened Verified 11/22/18 14:08 psoriasis iohexol [From Omnipaque] Allergy itchy Verified 11/22/18 14:08 swollen eyes metronidazole Allergy Rash Verified 11/22/18 14:09 solifenacin [From Vesicare] Allergy swelling Verified 11/22/18 14:08 of face and lips ustekinumab [From Stelara] Allergy anaphylaxis Verified 11/22/18 14:08 venlafaxine [From Effexor] Allergy Unknown Verified 11/22/18 14:08 Reaction Details all cillins Allergy Rash Uncoded 11/22/18 14:08 Home Medications: Home Medications LORazepam TAB(*) [Ativan 0.5 MG TAB (*)] 0.5 mg PO BID PRN MDD 1 mg 11/22/18 [ History Confirmed 11/22/18] Sucralfate TAB* [Carafate*] 1 gm PO ACHS 11/22/18 [History Confirmed 11/22/18] PMH/Surg Hx/FS Hx/Imm Hx Endocrine/Hematology History: Denies: Hx Anticoagulant Therapy, Hx Diabetes, Hx Thyroid Disease Cardiovascular History: Reports: Other Cardiovascular Problems/Disorders - HIGH CHOLESTEROL Denies: Hx Hypertension, Hx Pacemaker/ICD Respiratory History: Denies: Hx Asthma, Hx Chronic Obstructive Pulmonary Disease (COPD), Other Respiratory Problems/Disorders GI History: Reports: Hx Gastroesophageal Reflux Disease - ON MEDICATION FOR, Hx Hiatal Hernia Denies: Hx Cirrhosis, Hx Crohn's Disease, Hx Diverticulosis, Hx Gall Bladder Disease, Hx Gastrointestinal Bleed, Hx Irritable Bowel, Hx Jaundice, Hx Obstructive Bowel, Hx Ileostomy, Hx Pyloric Stenosis, Hx Ulcer, Other GI Disorders History: Denies: Hx Renal Disease, Other Problems/Disorders Musculoskeletal History: Reports: Hx Arthritis, Hx Bursitis - LEFT KNEE- IN THE PAST, Other Musculoskeletal History - Right knee ACL reconstruction Denies: Hx Rheumatoid Arthritis, Hx Osteoporosis, Hx Tendonitis Sensory History: Reports: Hx Contacts or Glasses - GLASSES Denies: Hx Cataracts, Hx Eye Injury, Hx Eye Prosthesis, Hx Glaucoma, Hx Macular Degeneration, Hx Vision Problem, Hx Deafness, Hx Hearing Aid, Hx Hearing Problem, Other Sensory Impairments Opthamlomology History: Reports: Hx Contacts or Glasses - GLASSES Denies: Hx Cataracts, Hx Eye Injury, Hx Eye Prosthesis, Hx Glaucoma, Hx Macular Degeneration, Hx Vision Problem, Other Sensory Impairments Neurological History: Reports: Hx Headaches - Tylenol or Excedrin Migraine, Hx Migraine - TREATS WITH REST AND EXCEDRIN MIGRAINE Denies: Hx Dementia, Hx Seizures, Hx Spinal Cord Injury, Other Neuro Impairments/Disorders Psychiatric History: Reports: Hx Anxiety - ON MEDICATION FOR, Hx Depression - ON MEDICATION FOR Denies: Hx Panic Disorder, Hx Substance Abuse - Cancer History Hx Chemotherapy: No Hx Radiation Therapy: No - Surgical History Surgery Procedure, Year, and Place: HYSTERECTOMY - 2001-[facility]. Appendectomy - [facility] [place] 2005. Bladder Repair - [facility] [place]. Thyriod- CYST REMOVED - [facility] 17 [facility]. ACL REPAIR RIGHT KNEE - 2009 - [facility] right hand, 06/04/[address], [facility] [place]. 07/06/17 left hand and elbow, [facility] [place]. RIGHT CARPAL TUNNEL AND RIGHT ELBOW SURGERY - 05/2017 - [facility] Anesthesia Reactions: No - Immunization History Date of Tetanus Vaccine: 2014 Date of Influenza Vaccine: 03/08/16 Infectious Disease History: No Infectious Disease History: Denies: Hx Hepatitis, Hx Human Immunodeficiency Virus (HIV), History Other Infectious Disease, Traveled Outside the in Last 30 Days - Family History Known Family History: Positive: Diabetes, Other - Aneurysm - Social History Alcohol Use: None Alcohol Amount: 4 per year Hx Substance Use: No Substance Use Type: Reports: None Hx Tobacco Use: Yes Smoking Status (MU): Light Every Day Tobacco Smoker Type: Cigarettes Amount Used/How Often: 1 PPD X 1.5 DAYS X 20+ YEARS Length of Time of Smoking/Using Tobacco: 20 years Have You Smoked in the Last Year: Yes - QUIT DECEMBER 2016 Review of Systems Negative: Fever Negative: Chest Pain Negative: Shortness Of Breath Positive: Rash Positive: Headache All Other Systems Reviewed And Are Negative: Yes Physical Exam Triage Information Reviewed: Yes Vital Signs On Initial Exam: Initial Vitals Temp Pulse Resp BP Pulse Ox 98.4 F 80 18 158/79 97 11/22/18 14:03 11/22/18 14:03 11/22/18 14:03 11/22/18 14:03 11/22/18 14:03 Vital Signs Reviewed: Yes Appearance: Positive: Well-Appearing Skin: Positive: Warm, Dry, Other - no rash seen Head/Face: Positive: Normal Head/Face Inspection Eyes: Positive: Normal, EOMI, HEATHER, Conjunctiva Clear ENT: Positive: Normal ENT inspection, Pharynx normal, TMs normal Respiratory/Lung Sounds: Positive: Clear to Auscultation, Breath Sounds Present Cardiovascular: Positive: Normal, RRR Abdomen Description: Positive: Nontender, Soft Bowel Sounds: Positive: Present Musculoskeletal: Positive: Normal Neurological: Positive: Normal Psychiatric: Positive: Anxious Diagnostics - Vital Signs Vital Signs Temp Pulse Resp BP Pulse Ox 11/22/18 14:03 98.4 F 80 18 158/79 97 - Laboratory Result Diagrams: 11/22/18 15:52 11/22/18 15:52 Lab Statement: Any lab studies that have been ordered have been reviewed, and results considered in the medical decision making process. Re-Evaluation - Re-Evaluation First Eval Re-Evaluation Time: 15:35 Change: Worse Comment: states feels worst Second Eval Re-Evaluation Time: 16:48 Change: Improved Comment: sleeping, symptoms resolved Allergic Reaction Course/Dx - Course Course Of Treatment: 48 year-old female presents with potential allergic reaction today. She got botox for the first time today. She states she's felt itchiness developing a couple hours after starting at the site and then moving down to her chest and back. She states feels like her throat is closing up. She also admits to headache. She got the botox for migraines. Has history of migraines. She states she has multiple allergic reactions and this is how they start. She hasn't taken anything for her symptoms. On exam no rash seen. Normal neuro exam. lungs CTA. Pharynx normal. Gave solumedrol Benadryl and Pepcid and patient feels the same. patient appears anxious so will dose of ativan and reassured patient that is not anaphylactic reaction at this time. on reevaulation patient is sleeping, symptoms have resolved. discussed likely anxiety component to it but with history will have continue steriods, pepcid and benadryl at home. patient understand and agrees with plan. - Diagnoses Differential Diagnosis/HQI/PQRI: Positive: Anaphylaxis, Local Allergic Reaction , Urticaria Provider Diagnoses: Allergic reaction caused by a drug Discharge - Sign-Out/Discharge Documenting (check all that apply): Patient Departure Patient Received Moderate/Deep Sedation with Procedure: No - Discharge Plan Condition: Good Disposition: HOME Prescriptions: Famotidine TAB* [Pepcid 20 MG TAB*] 20 mg PO BID #9 tab predniSONE TAB* [Deltasone TAB*] 50 mg PO DAILY #4 tab Patient Education Materials: Adverse Drug Reaction (ED) Referrals: Raul Molina MD [Primary Care Provider] - Additional Instructions: Take Benadryl every 6 hours Take Pepcid twice a day for 5 days Take steroid once a day for 4 days starting tomorrow Return to ED if shortness of breath, chest pain, or if develop any new or worsening symptoms - Billing Disposition and Condition Condition: GOOD Disposition: Home
[2018-11-22] MEDS ORDERED: LORazepam INJ* 2 MG/ML 1 ML VIAL IV PUSH ONE (15:33)
[2018-11-22] MEDS ORDERED: Lorazepam PYXIS KEY PRN (15:33)
[2018-11-22] MEDS ORDERED: NS 0.9% 1000 ML** 1,000 ML IV ONE (15:35)
[2018-11-22 16:09] LABS: ABS Basophils 0.1 10^3/ul (0-0.2); ABS Eosinophils 0.2 10^3/ul (0-0.6); ABS Monocytes 0.7 10^3/ul (0-0.8); ABS Neutrophils 4.4 10^3/ul (1.5-7.7); Eosinophil % 2.2 %; Hematocrit 41 % (35-47); Hemoglobin 14.1 g/dL (12.0-16.0); Lymphocyte % 42.4 %; Mean Corpuscular HGB Conc 34 g/dL (31-36); Mean Corpuscular Hemoglobin 32 pg (27-31); Mean Corpuscular Volume 93 fL (80-97); Mean Platelet Volume 8.2 fL (7.4-10.4); Nucleated Red Blood Cells % 0.1; Platelet Count 228 10^3/uL (150-450); Red Blood Count 4.46 10^6 /uL (3.70-4.87); Red Cell Distribution Width 13 % (10-15); White Blood Count 9.5 10^3/uL (3.5-10.8)
[2018-11-22 16:11] LABS: Albumin 4.4 g/dL (3.2-5.2); Calcium 9.8 mg/dL (8.6-10.3); Potassium 3.7 mmol/L (3.5-5.0); Total Bilirubin 0.4 mg/dL (0.2-1.0)
[2018-11-22 16:17] LABS: Albumin/Globulin Ratio 1.5 (1-3); BUN/Creatinine Ratio 15.1 (8-20); C Reactive Protein 8.53 mg/L (<8.01); Total Protein 7.4 g/dL (6.4-8.9)
[2018-11-22 17:21] VITALS: BP 137/85
== END 2018-11-22 17:20 | disposition home or self-care (01) ==
LOC: ED 14:00
DX: L29.9 Pruritus, unspecified (principal); R51 Headache; T48.295A Adverse effect of other drugs acting on muscles, initial encounter; Y92.9 Unspecified place or not applicable; K21.9 Gastro-esophageal reflux disease without esophagitis; F41.9 Anxiety disorder, unspecified; F32.9 Major depressive disorder, single episode, unspecified; Z88.0 Allergy status to penicillin; Z88.8 Allergy status to other drugs, medicaments and biological substances; Z88.1 Allergy status to other antibiotic agents; Z91.041 Radiographic dye allergy status; Z87.891 Personal history of nicotine dependence
CPT/HCPCS: 36415; 80053; 85025; 86140; 96361; 96374; 96375; 99285; J1200; J2060; J2930

== ENCOUNTER → 2019-02-08 10:08 | Day surgery (SDC) | payer OTHER ==
[~2019-02-08 10:08] MED LIST changes: +Acetaminophen IV 1GM/100ML * 1,000 MG/100 ML VIAL IVPB ONE; +Acetaminophen IV 1GM/100ML * 100 ML ONE; +Buffered Lidocaine 1% SYRIN* 1 ML/SYRINGE INTRADERM ONE; +Bupivacaine 0.25% EPI 200,000* 30 ML SDV ONE; +Clindamycin 900 MG/D5W BAG(*) 900 MG/50 ML BAG IVPB ONE; +Dexamethasone IV* 4 MG/ML 1 ML (4 MG) IV SLOW PU ONE; -Diazepam TAB(*) 5 MG PO ONE; -Ketorolac INJ* 30 MG/ML 1 ML VIAL ONE; +Lactated Ringers 1000 ML Bag* 1,000 ML IV SCH; +Lidocaine 2% PF * 5 ML VIAL ONE; -Magnesium Sulfate 2 GM IV* 2 GM/50 ML BAG ONE; -Metoclopramide IV* 5 MG/ML 2 ML VIAL IV SLOW PU ONE; +Midazolam* 1 MG/ML 2 ML VIAL (2 MG) ONE; +Naloxone* 0.4 MG/ML 1 ML VIAL IV PRN; +Propofol* 10 MG/ML 20 ML BTL ONE; +Rocuronium* 10 MG/ML VIAL ONE; +Scopolamine 1.5 mg* PATCH ONE; +Sugammadex * 200 MG/2 ML VIAL IV PUSH ONE; -diPHENhydraMINE IV* 50 MG/ML 1 ml VIAL (BENADRYL) SLOW PUSH ONE; +fentaNYL* 50 MCG/ML 2 ML VIAL (100 MCG VIAL) IV PRN; +fentaNYL* 50 MCG/ML 2 ML VIAL (100 MCG VIAL) ONE
[2019-02-08 20:14] VITALS: BP 138/78
--- NOTE | 2019-02-08 22:58 | OP ---
CC: Raul Molina MD; Elliot Méndez DO* OPERATIVE REPORT: DATE OF OPERATION: 02/08/19 - [facility] DATE OF : 74 SURGEON: Nelson Corona MD PATHOLOGY SPECIALIST: Litzy Eckert NP ANESTHESIOLOGIST: Nader Escalera DO ANESTHESIA: General endotracheal. PRE-OP DIAGNOSIS: Hiatal hernia. POST-OP DIAGNOSIS: Hiatal hernia. OPERATIVE PROCEDURE: Laparoscopic repair of hiatal hernia with Abiel fundoplication. ESTIMATED BLOOD LOSS: Less than 50 mL. IV FLUIDS: Crystalloid. SPECIMEN: None. DRAINS: None. COMPLICATIONS: None. COUNTS: Instrument, needle, and sponge counts were correct. DESCRIPTION OF PROCEDURE: The patient was brought to the operating room and placed on the table supine. Sequential compression devices were placed in both lower extremities. General anesthesia was administered. She was positioned and padded appropriately. She received appropriate intravenous antibiotics and time-out was performed. Local anesthetic was infiltrated into the skin and soft tissues prior to making each incision. Entry to the abdomen was through a left upper quadrant incision accommodating a 5 mm optical trocar. After accessing the peritoneal cavity, carbon dioxide was insufflated to a pressure of 15 mmHg. Under direct visualization, a 5 mm trocar was placed in the supraumbilical midline and in the right upper quadrant. Initial trocars were exchanged for a 12 mm trocar and then 5 mm trocar was placed in the left upper quadrant laterally. A Vincent liver retractor was placed in the subxiphoid position, used to elevate elevate the left lobe of the liver. Inspection revealed a moderate size hiatal hernia. The fundus appeared to be closely adherent to the spleen. Mobilization of the fundus away from the left jose raul of the diaphragm and the spleen was performed with the ligature. Upper 3 short gastrics were divided to complete this mobilization. Next the pars flaccida was opened and the right jose raul of the diaphragm was identified. The division of the pars flaccida was undertaken up to the esophageal- phrenic ligament that was incised across the anterior portion of the esophagus. Blunt dissection was then used to enter into the retrogastric, retroesophageal space. A [place] drain was then used to encircle the gastroesophageal junction and secured with an Endoloop. The esophagus was circumferentially mobilized until at least a 5 cm length of the esophagus was able to be maintained in the abdomen. During the dissection, the vagus nerves were preserved. At this point, the crural closure was performed. This was done over a 56- Indian bougie using interrupted 0 Ethibond sutures. A series of 3 stitches were placed approximately 1 cm apart. Next, the fundoplication was performed again over the 56- Indian bougie. The fundoplication was created in a floppy fashion over a short distance of approximately a`centimeter and half. This was done with 2 sutures, the upper suture incorporating the wall of the esophagus. After completing this, the bougie was withdrawn as well as the [place] drain. Hemostasis was assured. The Vincent liver retractor was removed. Ports removed. Incisions were closed with 4-0 Monocryl in a subcuticular fashion. The Steri-Strips were applied. The patient tolerated the procedure well, extubated and transferred to recovery room in stable condition. [id number]/CPS #: [id number] MTDD
== END | disposition home or self-care (01) ==
LOC: OR 10:08
PROVIDERS: ATTEND Surgery
DX: K44.9 Diaphragmatic hernia without obstruction or gangrene (principal); E78.5 Hyperlipidemia, unspecified; Z68.33 Body mass index [BMI] 33.0-33.9, adult; K21.9 Gastro-esophageal reflux disease without esophagitis; F41.8 Other specified anxiety disorders; L40.9 Psoriasis, unspecified; Z72.0 Tobacco use
CPT/HCPCS: A9270-GY; J1100; J2250; J2704; J3010

== ENCOUNTER 2019-03-29 13:32 | Emergency (ER) | payer OTHER ==
--- OUTSIDE RECORDS SUMMARY | 2019-03-29 13:53 | XMS REPORT | Continuity of Care Document ---
:1970 External Reference #:[id number] Author Name Krishan Olivares MD (transmitted by agent of provider Patsy Drew) Address [address] [place] [address] [place] [address] Care Team Providers Name Role Phone Raul Molina MD - Family Care Team Information Family Consumer Scientist [phone] Medicine Danuta Gordillo MD - Pain Medicine Care Team Information Family Consumer Scientist [phone] Problems Active Problems Provider Date Psoriasis Martin Miranda M.D. Onset: 09/27/2012 Multiple joint pain Martin Miranda M.D. Onset: 09/27/2012 Chronic pain syndrome Martin Miranda M.D. Onset: 10/25/2012 Chest pain Paul West M.D., [facility], Onset: 01/28/2017 [facility] Palpitations Paul West M.D., [facility], Onset: 01/28/2017 [facility] Carpal tunnel syndrome of left wrist Prateek Casey MD Onset: 06/16/2017 Lesion of ulnar nerve Prateek Casey MD Onset: 06/16/2017 Social History Type Date Description Comments Sex Unknown ETOH Use Rarely consumes alcohol Recreational Drug Use Denies Drug Use Tobacco Use Start: Unknown End: Patient is a former smoker quit 02/2019 Unknown Smoking Status Reviewed: 02/16/19 Patient is a former smoker quit 02/2019 Exercise Type/Frequency Exercises regularly walking Allergies, Adverse Reactions, Alerts Active Allergies Reaction Severity Comments Date Stelara anaphylaxis 09/27/2012 Enbrel made psoriasis worse 09/27/2012 Effexor rash 09/27/2012 Penicillins anaphylaxis 09/27/2012 Solifenacin Succinate anaphylaxis 01/06/2017 Contrast Dye itching 01/06/2017 Metronidazole Severe itching rash 10/13/2018 Medications Active Medications SIG Qnty Indications Ordering Provider Date Tylenol 8 Hour 1 po tid as 90tabs Other Ordering 09/27/2012 650mg needed for pain Provider Tablets ER Excedrin Migraine 1 tab po prn Unknown [phone] Tablets Epipen 2-Johnson use as directed Unknown 0.3mg/0.3ML Solution Auto-Inject Trazodone HCL 1 tablet at Unknown 50mg bedtime Tablets Omeprazole Take 1 Capsule By Unknown 40mg Mouth Twice Daily Capsules DR Before Meal(S) Paroxetine HCL Take 1 Tablet By Unknown 20mg Mouth Once Daily Tablets Chantix Starting as directed Unknown Month Johnson 0.5mg X 11 & 1 mg X 42 Tablets Medications Administered in Office Medication SIG Qnty Indications Ordering Provider Date Inj, Regadenoson, 0.1 MG Quinten Turner M.D. 12/18/2016 Injection Technetium TC 99M Tetrofosmin, Quinten Turner M.D. 12/18/2016 Per Unit Dose Up To 40 Millicuries Injection Immunizations CPT Code Status Date Vaccine Reaction Lot # 47708 Given 04/14/2018 Influenza Virus Vaccine, no immediate reaction [id number] Quadrivalent, Split, noted Preservative Free Vital Signs Date Vital Result Comment 02/16/2019 2:50pm Heart Rate 72 /min BP Systolic Sitting 104 mmHg BP Diastolic Sitting 72 mmHg Respiratory Rate 16 /min Body Temperature 97.5 F 02/03/2019 4:03pm Height 63 inches 5'3" Weight 190.00 lb Heart Rate 84 /min BP Systolic Sitting 110 mmHg BP Diastolic Sitting 70 mmHg Respiratory Rate 16 /min Body Temperature 97.1 F BMI (Body Mass Index) 33.7 kg/m2 Results Test Date Facility Test Result H/L Range Note Leukemia/Lymp 02/14/2019 [facility] Path Interpretation TNP maria luisa Flow [address] [place] [address] [phone] Path Interpret 9-15 Marker (SEE NOTE) 1 Path Interpret > 16 Marker TNP Laboratory test 02/14/2019 [facility] Cytology Non-Switch Technician SEE RESULT [address] [place] [address] [phone] Leukemia/Lymphom 02/14/2019 [facility] Path Interpretation TNP a Phenot [address] [place] [address] [phone] Path Interpret 9-15 Marker (SEE NOTE) 3 Path Interpret > 16 Marker TNP 1 FINAL DIAGNOSIS: Specimen Source: Left axillary lymph node Flow cytometry immunophenotypic analysis: No immunophenotypic abnormality identified. Interpretative data: Lymphocytes: 62% of WBCs B-cells: 6% of lymphocytes with no evidence of light chain restriction or other immunophenotypic abnormality. T-cells/NK cells: No aberrant population detected. Markers tested: CD3, CD5, CD7, CD10, CD19, CD20, CD23, CD45, kappa surface light chains, lambda surface light chains, 7-AAD. Quality Assessment: Acceptable Viability: Acceptable Viable lymphocytes (7-AAD): 100% Specimen received within validated guidelines. A Mott-Giemsa stained slide prepared from the flow cytometry specimen was examined for quality purposes. Electronically signed by: Manjeet Munoz MD 02/16/19 1150 Technical component performed by: [place] [address] All Source Collection Manager: Cas Brown II, MD, PhD. 2 SEE RESULT BELOW Name: BUSTAMANTELAURALISA M : [address]: Raul Molina MD Acct: [id number] Unit: [id number] AGE: 48 Location: Re02/14/19 SEX: F Status: REG REF SPEC: [id number] YONATAN: 02/14/19-[address]: Raul Molina MD REQ: [id number] RECD: 02/14/19-1136 STATUS: REZA MURPHY DR: Nick Gomez MD _ ORDERED: FNA-IMG GUID BX/2, CY ADEQ-ADDL P/3, LEVEL 4, CYTO ADEQ-1ST P/2 FINAL DIAGNOSIS 1. Axillary lymph node, right, ultrasound guided fine needle aspiration: -- Scattered benign appearing lymphocytes, Adipose tissue, blood and inflammatory cells. 2. Axillary lymph node, left, ultrasound guided fine needle aspiration: -- Benign lymph node. -- No evidence of hematolymphoid or metastatic neoplasia identified. See comment. Comment: The aspirate smear in part 1 demonstrates few scattered lymphocytes in a background of peripheral blood in scattered adipose tissue fragments. Part 2 demonstrates abundant predominantly small mature lymphocytes with scattered intermediate and large forms as well as macrophages including tingible body forms and scattered dendritic aggregates. No evidence of metastatic neoplasia is identified. Concurrent flow cytometric evaluation demonstrates no immunophenotypic abnormality. A cell block was prepared in the evaluation of this specimen. Smears and cell block reveal similar findings. #1. AXILLARY RIGHT - GUIDED RIGHT AXILLARY LYMPH NODE FINE NEEDLE ASPIRATION , #2. AXILLARY LEFT - US GUIDED LEFT AXILLARY LYMPH NODE FINE NEEDLE ASPIRATION CONTINUED ON NEXT PAGE DEPARTMENT OF PATHOLOGY, [address] [place] [address] Manjeet Munoz M.D. Director [facility] # [id number] CLINICAL HISTORY #1) 2x77 x 1.26 cm right axillary lymph node. #2) 1.6 x 0.7 x 0.8 cm left axillary node. Family history of breast cancer. IMMEDIATE INTERPRETATION 1. Pass 1 2-indequate, pass 3-adequate. 2. Pass 1-inadequate, pass 2-adequate. GROSS DESCRIPTION #1) Ultrasound guided, fine needle aspiration x 3 passes with 4 alcohol fixed slide(s) and needle rinse in formalin for cell block. #2) Ultrasound guided, fine needle aspiration x 2 passes with 2 alcohol fixed slide(s) and The specimen is sent to [place], [place] for flow cytometry on 02/14/19. Signed by and Reported on: Manjeet Munoz MD 04/26 1158 END OF REPORT DEPARTMENT OF PATHOLOGY, [address] [place] [address] Manjeet Munoz M.D. Director [facility] # [id number] 3 FINAL DIAGNOSIS: Specimen Source: Left axillary lymph node Flow cytometry immunophenotypic analysis: No immunophenotypic abnormality identified. Interpretative data: Lymphocytes: 62% of WBCs B-cells: 6% of lymphocytes with no evidence of light chain restriction or other immunophenotypic abnormality. T-cells/NK cells: No aberrant population detected. Markers tested: CD3, CD5, CD7, CD10, CD19, CD20, CD23, CD45, kappa surface light chains, lambda surface light chains, 7-AAD. Quality Assessment: Acceptable Viability: Acceptable Viable lymphocytes (7-AAD): 100% Specimen received within validated guidelines. A Mott-Giemsa stained slide prepared from the flow cytometry specimen was examined for quality purposes. Electronically signed by: Manjeet Munoz MD 02/16/19 1151 Technical component performed by: [place] [address] All Source Collection Manager: Cas Brown II, MD, PhD. Procedures Description No Information Available Medical Devices Description No Information Available Encounters Type Date Location Provider Dx Diagnosis Office Visit 01/10/2019 Surgical Nelson Corona, K44.9 Diaphragmatic hernia 2:[facility] without obstruction or gangrene Office Visit 10/13/2018 [facility] Aly Ramirez M54.2 Cervicalgia 3:15p [facility] M.D. G43.119 Migraine with aura, intractable, without status migrainosus Assessments Date Code Description Provider 02/16/2019 K44.9 Diaphragmatic hernia without obstruction or Krishan Olivares MD gangrene 02/03/2019 K44.9 Diaphragmatic hernia without obstruction or Nelson Corona MD, FACS gangrene 02/03/2019 Z01.818 Encounter for other preprocedural Nelson Corona MD, FACS examination 02/01/2019 G43.119 Migraine with aura, intractable, without Aly Petersen M.D. status migrainosus 01/10/2019 K44.9 Diaphragmatic hernia without obstruction or Nelson Corona MD, FACS gangrene 10/13/2018 M54.2 Cervicalgia Aly Petersen M.D. 10/13/2018 G43.119 Migraine with aura, intractable, without Aly Petersen M.D. status migrainosus Plan of Treatment Future Appointment(s):03/31/2019 9:30 am - Nelson Corona MD, [facility] at [facility]08/05/2019 8:30 am - Aly Petersen M.D. at [facility]/16/2019 - Krishan Olivares MDK44.9 Diaphragmatic hernia without obstruction or gangreneFollow up:6 weeks Functional Status Description No Information Available Mental Status Description No Information Available Referrals Refer to Dr Reason for Referral Status Appt Date Danuta Gordillo MD chronic migraine for Botox [address]osed [address] [place] [id number] [phone]
[2019-03-29] MEDS ORDERED: Ketorolac INJ* 30 MG/ML 1 ML VIAL IM ONE (14:28)
[2019-03-29] MEDS ORDERED: oxyCODONE/Acetamin 5/325 MG* TAB PO ONE (14:28)
--- NOTE | 2019-03-29 14:31 | ED ---
Back Pain - HPI Summary HPI Summary: Pt is a 48 y/o F presenting to the ED for a chief complaint of constant lower back pain that began 2 weeks ago. Pt was previously seen at [facility] on and had a CT of her back completed with unremarkable findings. Pt states the pain as radiating down the bilateral LE, mostly in the left LE w shooting paresthesia in the left LE. Pt describes the pain as a pulling sensation. Pt states the pain worsens at night, sitting, or lying down. Pt has been using occasional lidocaine patches, rubbed oil onto the back, and did yoga stretches without relief. Pt denies saddle anesthesia, urinary incontinence or fever. Pt denies any trips, falls, or trauma. Pt has a PSHx of hiatal hernia repair 6 weeks ago. Pt has a PMHx of neck arthritis and psoriatic arthritis. Pt has an appointment with Dr. Corona this week. - History of Current Complaint Chief Complaint: EDBackInjuryPain Stated Complaint: LOWER BACK PAIN PER PT Time Seen by Provider: 03/29/19 14:10 Hx Obtained From: Patient Hx Last Menstrual Period: hysterectomy Onset/Duration: Sudden Onset, Lasting Weeks - 2 weeks, Still Present Onset/Duration: Started Weeks Ago - 2 weeks, Still Present Timing: Constant, Lasting Weeks - 2 weeks Severity Initially: Severe Severity Currently: Severe Pain Intensity: 8 Pain Scale Used: 0-10 Numeric Character: Aching - Pulling Aggravating Symptom(s): Other - At night, lying down, sitting Alleviating Symptom(s): Nothing - No relief with lidocaine patches, rubbing oil on area, or yoga stretches Associated Signs And Symptoms: Positive: Tingling - Left LE. Negative: Bladder Incontinence - Allergies/Home Medications Allergies/Adverse Reactions: Allergies Allergy/AdvReac Type Severity Reaction Status Date / Time etanercept [From Enbrel] Allergy Severe worsened Verified 03/29/19 13:46 psoriasis metronidazole Allergy Severe Anaphylatic Verified 03/29/19 13:46 Shock solifenacin [From Vesicare] Allergy Severe swelling Verified 03/29/19 13:46 of face and lips ustekinumab [From Stelara] Allergy Severe anaphylaxis Verified 03/29/19 13:46 venlafaxine [From Effexor] Allergy Intermediate Rash Verified 03/29/19 13:46 iohexol [From Omnipaque] Allergy Mild itchy Verified 03/29/19 13:46 swollen eyes all cillins Allergy Severe Anaphylatic Uncoded 03/29/19 13:46 Shock PMH/Surg Hx/FS Hx/Imm Hx Previously Healthy: Yes Endocrine/Hematology History: Denies: Hx Anticoagulant Therapy, Hx Diabetes, Hx Thyroid Disease Cardiovascular History: Reports: Other Cardiovascular Problems/Disorders - HIGH CHOLESTEROL Denies: Hx Hypertension, Hx Pacemaker/ICD Respiratory History: Denies: Hx Asthma, Hx Chronic Obstructive Pulmonary Disease (COPD), Other Respiratory Problems/Disorders GI History: Reports: Hx Gastroesophageal Reflux Disease - ON MEDICATION FOR, Hx Hiatal Hernia Denies: Hx Cirrhosis, Hx Crohn's Disease, Hx Diverticulosis, Hx Gall Bladder Disease, Hx Gastrointestinal Bleed, Hx Irritable Bowel, Hx Jaundice, Hx Obstructive Bowel, Hx Ileostomy, Hx Pyloric Stenosis, Hx Ulcer, Other GI Disorders History: Denies: Hx Renal Disease, Other Problems/Disorders Musculoskeletal History: Reports: Hx Arthritis - psoriatic and neck, Hx Bursitis - LEFT KNEE- IN THE PAST, Other Musculoskeletal History - Right knee ACL reconstruction Denies: Hx Rheumatoid Arthritis, Hx Osteoporosis, Hx Tendonitis Sensory History: Reports: Hx Contacts or Glasses - GLASSES Denies: Hx Cataracts, Hx Eye Injury, Hx Eye Prosthesis, Hx Glaucoma, Hx Legally Blind, Hx Macular Degeneration, Hx Vision Problem, Hx Deafness, Hx Hearing Aid, Hx Hearing Problem, Other Sensory Impairments Opthamlomology History: Reports: Hx Contacts or Glasses - GLASSES Denies: Hx Cataracts, Hx Eye Injury, Hx Eye Prosthesis, Hx Glaucoma, Hx Legally Blind, Hx Macular Degeneration, Hx Vision Problem, Other Sensory Impairments EENT History: Denies: Hx Deafness Neurological History: Reports: Hx Headaches - Tylenol or Excedrin Migraine, Hx Migraine - is getting botox injections Denies: Hx Dementia, Hx Seizures, Hx Spinal Cord Injury, Other Neuro Impairments/Disorders Psychiatric History: Reports: Hx Anxiety - ON MEDICATION FOR, Hx Depression - ON MEDICATION FOR Denies: Hx Panic Disorder, Hx Substance Abuse - Cancer History Hx Chemotherapy: No Hx Radiation Therapy: No - Surgical History Surgical History: Yes Surgery Procedure, Year, and Place: HYSTERECTOMY - 2001-[facility]. Appendectomy - [facility] [place] 2005. Bladder Repair - [facility] [place]. Thyroid- CYST REMOVED - [facility] 17 [facility]. ACL REPAIR RIGHT KNEE - 2009 - [facility] right hand, 06/04/17, [facility]. 07/06/17 left hand and both elbows, [facility]. 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 Negative: Weakness All Other Systems Reviewed And Are Negative: Yes Physical Exam - Summary Physical Exam Summary: Constitutional: Well-developed, Well-nourished, Alert. (-) Distressed Skin: Warm, Dry HENT: Normocephalic; Atraumatic Eyes: Conjunctiva normal Neck: Musculoskeletal ROM normal neck. (-) JVD, (-) Stridor, (-) Nuchal rigidity Cardio: Rhythm regular, rate normal, Heart sounds normal; Intact distal pulses; Radial pulses are 2+ and symmetric. (-) Murmur Pulmonary/Chest wall: Effort normal. (-) Respiratory distress, (-) Wheezes, (-) Rales Abd: Soft, (-) tenderness, (-) Distension, (-) Guarding, (-) Rebound Musculoskeletal: (-) Edema. Tenderness of the lower lumbar spine, positive straight leg raise on the left leg, intermittent paresthesia in the L2-L4 distribution on the left leg, strength is 5/5 bilaterally in the legs. Ambulating Lymph: (-) Cervical adenopathy Neuro: Alert, Oriented x3 Psych: Mood and affect Normal Triage Information Reviewed: Yes Vital Signs On Initial Exam: Initial Vitals Temp Pulse Resp BP Pulse Ox 98.2 F 76 18 129/101 98 03/29/19 13:40 03/29/19 13:40 03/29/19 13:40 03/29/19 13:40 03/29/19 13:40 Vital Signs Reviewed: Yes Procedures - Sedation Patient Received Moderate/Deep Sedation with Procedure: No Diagnostics - Vital Signs Vital Signs Temp Pulse Resp BP Pulse Ox 03/29/19 13:40 98.2 F 76 18 129/101 98 - Laboratory Lab Statement: Any lab studies that have been ordered have been reviewed, and results considered in the medical decision making process. Back Pain Course/Dx - Course Course Of Treatment: 48 y/o F w hx arthritis p/w lower back pain. - Back pain ddx. This patient does not have red flags for emergent cause of back pain. - Spinal metastasis - No constitutional symptoms, weight loss, or known primary cancer to suggest met to spine. - Epidural abscess/osteomyelitis/discitis - No fever/IVDU/indwelling lines to suggest epidural abscess, osteomyelitis, or discitis. - Fracture - No trauma/osteoporosis/senior care steroid use to suggest fracture. - PNA/PTX/PE - No respiratory symptoms to suggest PNA, PTX or PE. - Pyelo/renal stone - No fevers or urinary symptoms to suggest pyelo or renal stone. - Pancreatitis - No epigastric tenderness or GI sx to suggest pancreatitis. - Cauda equina - No bilateral LE weakness, saddle anesthesia or loss of urine/bladder control. neg CT 2 weeks ago, would benefit from MRI likely outpatient. Therefore imaging/further studies not obtained in emergency department, and likely can safely be deferred to outpatient setting. Given pain control here, referred to orthopedics. - Diagnoses Provider Diagnoses: Back pain Discharge ED - Sign-Out/Discharge Documenting (check all that apply): Patient Departure - Discharge - Discharge Plan Condition: Stable Disposition: HOME Prescriptions: Cyclobenzaprine TAB* [Flexeril 10 MG TAB*] 10 mg PO TID PRN 4 Days #12 tab PRN Reason: Pain - Moderate Lidocaine PATCH 5%* [Lidoderm 5% Patch*] 1 patch TRANSDERM DAILY PRN 10 Days # 10 patch PRN Reason: Pain oxyCODONE/Acetamin 5/325 MG* [Percocet 5/325 TAB*] 1 tab PO Q6H PRN 3 Days #12 tab MDD 4 PRN Reason: Pain Patient Education Materials: Back Pain (ED) Referrals: Raul Molina MD [Primary Care Provider] - Additional Instructions: You were seen in the emergency department for back pain. Please follow up with your primary care doctor or orthopedics. If any studies were not completed at the time of discharge you will be called with the relevant results. Please follow up with your primary care doctor in next 2-3 days and return to emergency department for worsening pain, numnbness, weakness, bowel or bladder incontinence or concerning symptoms. It was a pleasure taking care of you today. - Billing Disposition and Condition Condition: STABLE Disposition: Home - Attestation Statements Document Initiated by Vick: Yes Documenting Scribe: Jojo Crain Provider For Whom Vick is Documenting (Include Credential): Aba Cooper MD Scribe Attestation: IJojo, scribed for Aba Cooper MD on 03/29/19 at 1532. Scribe Documentation Reviewed: Yes Provider Attestation: The documentation as recorded by the Jojo collins accurately reflects the service I personally performed and the decisions made by , Aba Cooper MD Status of Scribe Document: Viewed
[2019-03-29 15:50] VITALS: BP 145/82
== END 2019-03-29 15:45 | disposition home or self-care (01) ==
LOC: ED 13:32
DX: M54.5 Low back pain (principal); K21.9 Gastro-esophageal reflux disease without esophagitis; E78.00 Pure hypercholesterolemia, unspecified; Z87.891 Personal history of nicotine dependence; F41.9 Anxiety disorder, unspecified; R20.0 Anesthesia of skin
CPT/HCPCS: 96372; 99282; A9270-GY; J1885

== ENCOUNTER 2022-11-23 10:29 | Observation (INO) ==
[2022-11-23 10:47] LABS: ABS Basophils 0.1 10^3/uL (0.0-0.1); ABS Eosinophils 0.3 10^3/uL (0.0-0.5); ABS Lymphocytes 2.7 10^3/uL (1.0-4.8); ABS Monocytes 0.6 10^3/uL (0.0-0.9); ABS Neutrophils 4.3 10^3/uL (1.5-7.6); Eosinophil % 3.4 %; Hematocrit 41.8 % (35-45); Hemoglobin 14.5 g/dL (11.5-14.3); Lymphocyte % 33.9 %; Mean Corpuscular Hemoglobin 32.3 pg (27-33); Mean Corpuscular Hgb Conc 34.7 g/dL (31-36); Mean Corpuscular Volume 92.9 fL (80-97); Mean Platelet Volume 7.1 fL (7.5-11.2); Platelet Count 300 10^3/uL (150-450); Red Cell Distribution Width 13.1 % (12-17); White Blood Count 7.9 10^3/uL (3.8-11.8)
[2022-11-23 10:57] LABS: INR 1.04 (0.88-1.18)
[2022-11-23 11:04] LABS: Albumin 4.3 g/dL (3.2-5.2); Albumin/Globulin Ratio 1.6 (1-3); Calcium 9.7 mg/dL (8.6-10.3); Creatinine, Serum 0.83 mg/dL (0.51-0.95); Globulin 2.7 g/dL (2-4); HDL Cholesterol 45.5 mg/dL; Potassium 4.2 mmol/L (3.5-5.0); Total Bilirubin 0.5 mg/dL (0.2-1.0); eGFR CKD-EPI 85.8 (>60)
[2022-11-23] MEDS ORDERED: Metoclopramide 5 MG/ML VIAL (10 mg) IV ONE (11:11)
[2022-11-23] MEDS ORDERED: Acetaminophen IV 1 GM/100ML 1,000 MG/100 ML BAG IV ONE (11:11)
[2022-11-23 11:42] LABS: Urine Appearance Clear; Urine Bilirubin Negative (Negative); Urine Blood Negative (Negative); Urine Color Yellow; Urine Glucose Negative (Negative); Urine Ketones Negative (Negative); Urine Nitrite Negative (Negative); Urine Protein Negative (Negative); Urine Urobilinogen Negative (Negative)
[2022-11-23 12:19] LABS: Urine Bacteria 1+ (Absent); Urine Red Blood Cell Trace(0-2/hpf) (Absent); Urine Squamous Epithelial Cell Present (Absent); Urine White Blood Cell Trace(0-5/hpf) (Absent)
[2022-11-24 09:54] LABS: ABS Eosinophils 0.2 10^3/uL (0.0-0.5); ABS Monocytes 0.5 10^3/uL (0.0-0.9); ABS Neutrophils 4.7 10^3/uL (1.5-7.6); Eosinophil % 3.4 %; Hematocrit 38.5 % (35-45); Hemoglobin 13.4 g/dL (11.5-14.3); Lymphocyte % 26.6 %; Mean Corpuscular Hemoglobin 32.2 pg (27-33); Mean Corpuscular Hgb Conc 34.8 g/dL (31-36); Mean Corpuscular Volume 92.5 fL (80-97); Mean Platelet Volume 6.9 fL (7.5-11.2); Platelet Count 263 10^3/uL (150-450); Red Blood Count 4.16 10^6/uL (3.63-4.92); Red Cell Distribution Width 12.9 % (12-17); White Blood Count 7.4 10^3/uL (3.8-11.8)
[2022-11-24 10:08] LABS: Calcium 9.3 mg/dL (8.6-10.3); Creatinine, Serum 0.85 mg/dL (0.51-0.95); Potassium 3.9 mmol/L (3.5-5.0); eGFR CKD-EPI 83.4 (>60)
[2022-11-24 10:47] LABS: TSH Ultra Thyroid Stim Horm 1.64 mcIU/mL (0.34-5.60)
[2022-11-25 15:42] VITALS: BP 126/70
== END 2022-11-25 17:37 | disposition home or self-care (01) ==
LOC: MEDTELE 10:29 → ED 10:29 → MEDTELE 16:33
PROVIDERS: ADMIT Hospitalist; ATTEND Hospitalist